=== PATIENT | female | born 1935 | race Caucasian/White ===

== ENCOUNTER 2019-05-04 14:59 | Emergency (ER) | payer MEDICARE, SELFPAY ==
[2019-05-04 15:16] VITALS: BP 156/88; PULSE 90; RESP 20; TEMP 36.4; O2SAT 100; BMI 28.1
--- NOTE | 2019-05-04 15:23 | ED_ITS ---
HPI - Female Genitourinary General Chief complaint: Urogenital-Female Stated complaint: HEAVY BLEEDING SURGICAL AREA PELVIC AREA Time Seen by Provider: 05/04/19 15:06 Source: patient Mode of arrival: Ambulatory Limitations: no limitations History of Present Illness HPI Narrative: The patient is a 83-year-old female postop day number 4 after a cystocele repair/ colpocliesis, presenting with bleeding. She says that she did have some bleeding however it seemed to stop and this morning on she has had heavy bleeding she went through 3 maxi pads is an about an hour. It seems to have slowed some but she does still continue to have some bright red blood. She denies any abdominal pain dizziness or lightheadedness. She is supposed to be on aspirin however she has not yet resumed it up postoperatively. Related Data Home Medications Medication Instructions Recorded Confirmed acetaminophen 500 mg PO Q6H PRN #0 04/30/11 05/04/19 ibuprofen [Advil] 200 mg PO Q6H PRN #0 04/30/11 05/04/19 Restasis 0.05 % OPHTH BID #0 04/17/13 05/04/19 aspirin 81 mg PO DAILY #0 04/17/13 05/04/19 olopatadine [Patanol] 0.1 % OPHTH PRN PRN #5 ml 04/17/13 05/04/19 [ALOE VERA JUICE] 30 ml PO DAILY #0 09/01/16 05/04/19 cholecalciferol (vitamin D3) 2,000 iu PO QAM #0 09/01/16 05/04/19 [Vitamin D3] Respironics Dreamstation CPAP #1 ea 09/21/18 05/04/19 fexofenadine 180 mg tablet 180 mg PO DAILY 09/25/18 05/04/19 omeprazole 20 mg capsule,delayed 20 mg PO DAILY PRN 09/25/18 05/04/19 release valacyclovir 500 mg tablet 500 mg PO DAILY 09/25/18 05/04/19 losartan 25 mg tablet 25 mg PO QPM tab 12/29/18 05/04/19 Buffered Salt 6 drp PO TID 05/04/19 05/04/19 Cbd Oil 3 mg PO DAILY 05/04/19 05/04/19 Ariane Liquid Iron 10 ml PO BID 05/04/19 05/04/19 Lacto.acidophilus-Bif.animalis 1 cap PO QAM 05/04/19 05/04/19 [Probiotic] Oil Of Oregano 2 drp PO DAILY 05/04/19 05/04/19 amlodipine 5 mg PO DAILY 05/04/19 05/04/19 diclofenac sodium [Voltaren] 1 - 2 g TOPICAL BID-TID 05/04/19 05/04/19 estradiol 1 mg PO DAILY 05/04/19 05/04/19 flaxseed oil 1,000 mg PO QAM 05/04/19 05/04/19 raudel oil 1 cap PO DAILY 05/04/19 05/04/19 glucosamine xju-ruljjphybn-fcn 1 tab PO TID 05/04/19 05/04/19 hydrochlorothiazide 12.5 mg PO DAILY 05/04/19 05/04/19 lysine 1 tab PO TID 05/04/19 05/04/19 nitrofurantoin monohyd/m-cryst 100 mg PO MOWEFR 05/04/19 05/04/19 oxycodone 5 mg PO Q4H PRN 05/04/19 05/04/19 vit C,E-Qv-ybhhd-lutein-zeaxan 2 cap PO BID 05/04/19 05/04/19 [PreserVision AREDS-2] vitamin B complex 1 cap PO DAILY 05/04/19 05/04/19 Previous Rx's Medication Instructions Recorded fluticasone propionate 2 spray INTRANASAL QDAY #3 inh 09/01/16 Allergies Allergy/AdvReac Type Severity Reaction Status Date / Time metronidazole [METRONIDAZOLE] Allergy Intermediate NUMBNESS Verified 05/04/19 15:16 IN FINGERS PNEMOMOCOCCAL VACCINE Allergy Mild EDEMA & Uncoded 05/04/19 15:16 ERYTHEMA Review of Systems Review of Systems Narrative: GENERAL: Denies chills, fatigue, malaise, fever, sweats, travel HEENT: Denies sinus pain, ear pain, sore throat, difficulty swallowing, neck pain RESPIRATORY: Denies dyspnea, cough, wheezing, hemoptysis, sputum. CARDIOVASCULAR: Denies chest pain, palpitations, orthopnea, edema GASTROINTESTINAL: Denies nausea, vomiting, abdominal pain, diarrhea, constipation, melena. : See HPI MUSCULOSKELETAL: Denies weakness, joint pain, or bony pain SKIN: No rash, no erythema, no pruritus NEUROLOGIC: Denies weakness, dizziness, headache, numbness, change in speech, confusion PSYCHIATRIC: No concerning psychosocial issues. 12 point review of systems is negative except for those stated above and HPI Patient History Medical History Depression with anxiety (Chronic) Hypertension (Chronic) Insomnia disorder (Chronic) Obstructive sleep apnea of adult (Chronic) Social History Smoking Status: Never smoker Social History Smoking Status: Never smoker alcohol intake frequency: 0-2 drinks per day Alcohol type: wine Substance Use Type: does not use Exam Initial Vital Signs Initial Vital Signs: Vital Signs Temperature 97.6 F 05/04/19 15:16 Pulse Rate 90 05/04/19 15:16 Respiratory Rate 20 05/04/19 15:16 Blood Pressure 156/88 H 05/04/19 15:16 Pulse Oximetry 100 05/04/19 15:16 GENERAL: Well-appearing, well-nourished and in no acute distress. HEENT: Head atraumatic,EOMI, pupils reactive, face symmetric CARDIOVASCULAR: Regular rate and rhythm without murmurs, rubs or gallops. RESPIRATORY: Breath sounds equal bilaterally, no wheezes rales or rhonchi. ABDOMEN: Soft, nontender. Normoactive bowel sounds all 4 quadrants. No guarding or rebound. : No CVA tenderness. bright red blood noted vaginally, nonpulsatile. Noted on pad is well EXTREMITIES: Normal range of motion, no clubbing or edema. Neurovascularly intact NEUROLOGICAL: Alert and oriented x4.Normal gait and speech. SKIN: Warm, dry, no laceration, no petechiae, no rashes or lesions. Course Orders Ordered: Discontinued Medications Sodium Chloride (Normal Saline 0.9%) 1,000 mls @ 150 mls/hr IV CONT THERESA Last Infusion: 05/04/19 19:31 Dose: 0 mls/hr Documented by: Admin: 05/04/19 16:15 Dose: 150 mls/hr Documented by: MANASA Consultations Consultation #1: Urology Dr. Gibbons from [facility] updated patient symptoms test results CT scan is pending. Recommends watching for about an hour to see if bleeding stops. Request call back in about 1 hour. Time: 16:44 Consultation #2: Dr. Gibbons updated on CT and pelvic US. Recommends keeping legs elevated. Hematoma and bleeding should resolve. Time: 19:01 Vital Signs Vital signs: Vital Signs - 8 hr 05/04/19 15:16 05/04/19 18:38 Temperature 97.6 F Pulse Rate 90 62 Respiratory Rate 20 Blood Pressure 156/88 H Blood Pressure [Left Arm] 160/76 H Pulse Oximetry 100 100 MDM - Female Genitourinary Lab Data Attestation: I reviewed the patient's lab results. Result diagrams: 05/04/19 15:47 05/04/19 15:47 Labs: Lab Results 05/04/19 05/04/19 05/04/19 Range/Units 15:47 15:47 15:47 WBC 13.5 H (4.5-11.0) X10^3/uL RBC 3.80 L (4.0-5.2) X10^6/uL Hgb 11.5 L (12.0-16.0) g/dL Hct 34.1 L (36-46) % MCV 89.9 (80-100) fL MCH 30.2 (26-34) PG MCHC 33.6 (30-36) % RDW 14.4 (11.6-14.8) % Plt Count 292 (150-400) X10^3/uL Neut % (Auto) 74.6 (50-75) % Lymph % (Auto) 17.4 L (25-40) % [place] % (Auto) 6.7 (3-14) % Eos % (Auto) 1.0 L (2-4) % Baso % (Auto) 0.3 (0-2) % Neut # (Auto) 06176 H (9498-9243) /uL Lymph # (Auto) 2300 (7549-4120) /uL [place] # (Auto) 900 (0-900) /uL Eos # (Auto) 100 (0-450) /uL Baso # (Auto) 0 (0-100) /uL PT 11.1 (10.1-12.7) SECONDS INR 1.0 (0.9-1.3) APTT 31 (26.4-36.2) SECONDS Sodium 132 L (137-145) mmol/L Potassium 3.8 (3.4-5.1) mmol/L Chloride 96 L (98-107) mmol/L Carbon Dioxide 26 (22-32) mmol/L BUN 13 (7-17) mg/dL Creatinine 0.50 L (0.52-1.04) mg/dL Estimated GFR > 60.0 (>60) mL/min BUN/Creatinine Ratio 26.0 H (6-22) Glucose 99 (80-110) mg/dL Calcium 9.2 (8.4-10.2) mg/dL Total Bilirubin 0.5 (0.2-1.3) mg/dL AST 42 H (14-36) IU/L ALT 28 (9-52) IU/L Alkaline Phosphatase 54 (38-126) U/L Total Protein 7.5 (6.3-8.2) g/dL Albumin 4.4 (3.5-5.0) g/dL Globulin 3.1 (1.7-4.1) g/dL Albumin/Globulin Ratio 1.4 (1.0-2.8) Lipase 31 (23-300) U/L Urine Dip Bedside Urine Glucose Negative Bedside Urine Bilirubin - Negative Bedside Urine Ketone +/- 5 Urine Specific [place] 1.010 Bedside Urine Occult Blood +++ Bedside Urine pH 7.5 Bedside Urine Protein - Negative Bedside Urine Urobilinogen - Negative Bedside Urine Nitrite - Negative Bedside Urine Leukocytes - Negative Esterase Imaging Data CT scan - abdomen: Radiologist's impression: PROCEDURE: CT ABDOMEN PELVIS W CON INDICATIONS: bleeding after cystocele TECHNIQUE: After the administration of intravenous contrast, 5 mm thick sections acquired from the diaphragm to the symphysis. 5 mm coronal and sagittal reformats were acquired. For radiation dose reduction, the following was used: automated exposure control, adjustment of mA and/or kV according to patient size. COMPARISON: [facility], , ABDOMEN WITHOUT CONTRAST, 08/18/2017, 13:20. FINDINGS: Image quality: Excellent. ABDOMEN: Lung bases: Lung bases are clear. Heart size is normal. Solid organs: Liver is normal in size and enhancement. Anterior hepatic cyst is present measuring 16 mm. Similar focus noted posteriorly in the right hepatic lobe measures 7 mm. Steatosis is present. Gallbladder has been removed. Biliary system is non d ilated. Pancreas enhances normally. Spleen is normal in size and enhancement. No adrenal nodules. Kidneys demonstrate normal size and enhancement, without hydronephrosis. Peritoneum and bowel: Bowel loops demonstrate normal wall thickness and caliber. No free fluid or air. Diverticula are present. Nodes and vessels: No retroperitoneal or mesenteric adenopathy by size criteria. Aorta and inferior vena cava are normal in size. Miscellaneous: No ventral hernias. PELVIS: Genitourinary: Bladder wall thickness is normal. Punctate area of air is noted within the bladder. Posterior to the bladder and projecting inferior there is a lobulated area of heterogeneous increased density with Hounsfield units ranging from 45 through 50. There is indentation of the anterior rectal wall. No priors are available for comparison. Miscellaneous: No inguinal hernias or adenopathy. Bones: No suspicious bony lesions. No vertebral body compression fractures. IMPRESSION: 1. Lobulated area of increased density within the lower pelvis as described above. While this could be a lobulated retroverted uterus, it appears larger than expected for patient's age and extends more inferiorly. Given recent history of cystocele surgery and clinical history of vaginal bleeding, hematoma cannot be excluded. Pelvic ultrasound is recommended for further delineation of the uterine boundaries and presence of fluid. 2. Diverticulosis. 3. Nondependent bladder air possibly related to recent surgery. 4. Hepatic cysts. The above was discussed with Dr. Tania Jalloh on 05/04/19 at 4:55 PM. Dictated by: Sherlyn Montgomery M.D. on 05/04/2019 at 16:55 pelic US: Radiologist's impression: PROCEDURE: US PELVIC COMPLETE INDICATIONS: VAGINAL BLEEDING ? HEMATOMA SEEN ON CT TECHNIQUE: Real-time scanning was performed of the pelvic organs, with image documentation. Additional endovaginal scanning was necessary due to incomplete visualization of the adnexal and endometrial structures by transabdominal scanning. COMPARISON: None. FINDINGS: Transabdominal scanning: Limited scanning through the kidneys shows no hydronephrosis. No pathologic free abdominal or pelvic fluid. Endovaginal scanning: Uterus: The uterus is surgically absent. A heterogeneous fluid collection or hypoechoic mass is present in the cervical region. Ovaries: The right ovary is surgically absent. The left ovary is not visualized. The prevoid bladder volume is 494 cm cubed and the postvoid volume is 169 cm cubed. IMPRESSION: 1. Heterogeneous fluid collection versus hypoechoic mass in the cervical region. Direct visualization recommended. Alternatively, gynecologic protocol MRI could be used. 2. Moderate postvoid residual. 3. Nonvisualization of the left ovary. Dictated by: Marii Johnson M.D. on 05/04/2019 at 18:06 Approved by: Marii Johnson M.D. on 05/04/2019 at 18:09 [facility] Narrative Medical decision making narrative: CT ultrasound are concerning for hematoma in the pelvis area. Patient's bleeding has definitely decreased since earlier in the day. She continues to have no pain. Urology updated on patient's scans and decrease in bleeding. Recommend outpatient follow-up keeping legs elevated while at rest. Will follow up in clinic next week. Discharge Plan Departure Patient Disposition: Home Clinical Impression: Postoperative vaginal bleeding following genitourinary procedure Discharge Date/Time: 05/04/19 19:32 Instructions: Cystocele and Rectocele Repair Activity Restrictions/Additional Instructions: *You have been diagnosed with postoperative bleeding *What to do: Urology has been updated they recommend keeping her legs elevated. The large blood clot should reabsorb over the next few weeks and bleeding should decreased. *Continue to take medications as directed *Follow up with your primary care provider in 2-3 days *Return to ER if you should have significant increased vaginal bleeding like you had earlier today, increased abdominal pain dizziness or lightheadedness or any new, worsening or concerning symptoms Prescriptions: No Action ibuprofen [Advil] 200 MG tablet 200 mg PO Q6H PRN (Reason: pain) Qty: 0 RF: 0 acetaminophen 500 mg Tablet 500 mg PO Q6H PRN (Reason: pain) Qty: 0 RF: 0 aspirin 81 MG tablet,delayed release (DR/EC) 81 mg PO DAILY Qty: 0 RF: 0 olopatadine [Patanol] 5 ML drops 0.1 % OPHTH PRN PRN (Reason: as directed) Qty: 5 RF: 0 Restasis 1 EACH dropperette 0.05 % OPHTH BID Qty: 0 RF: 0 cholecalciferol (vitamin D3) [Vitamin D3] 1,000 UNIT tablet,chewable 2,000 iu PO QAM Qty: 0 RF: 0 [ALOE VERA JUICE] 30 ml PO DAILY Qty: 0 RF: 0 fluticasone propionate 16 GM spray,suspension 2 spray Intranasal QDAY Qty: 3 RF: 3 fexofenadine [Linnea Allergy] 180 mg tablet 180 mg PO DAILY RF: 0 omeprazole 20 mg capsule,delayed release(DR/EC) 20 mg PO DAILY PRN (Reason: Acid Reflux) RF: 0 valacyclovir 500 mg tablet 500 mg PO DAILY RF: 0 losartan 25 mg tablet 25 mg PO QPM RF: 0 hydrochlorothiazide 12.5 mg capsule 12.5 mg PO DAILY RF: 0 nitrofurantoin monohyd/m-cryst 100 mg capsule 100 mg PO MOWEFR RF: 0 estradiol 1 MG tablet 1 mg PO DAILY RF: 0 amlodipine 5 mg Tablet 5 mg PO DAILY RF: 0 flaxseed oil 1,000 mg Capsule 1,000 mg PO QAM RF: 0 vitamin B complex Capsule 1 cap PO DAILY RF: 0 oxycodone 5 mg Tablet 5 mg PO Q4H PRN (Reason: pain) RF: 0 Probiotic 5 billion cell Capsule, Sprinkle 1 cap PO QAM RF: 0 PreserVision AREDS-2 [id number] wt-trmp-bu-mg Capsule 2 cap PO BID RF: 0 Buffered Salt 6 drp PO TID RF: 0 Cbd Oil 3 mg PO DAILY RF: 0 Ariane Liquid Iron 10 ml PO BID RF: 0 Oil Of Oregano 2 drp PO DAILY RF: 0 raudel oil capsule 1 cap PO DAILY RF: 0 glucosamine prp-xbvugueuws-rwr 1 tab PO TID RF: 0 lysine 1 tab PO TID RF: 0 diclofenac sodium [Voltaren] 1 % gel 1 - 2 g Topical BID-TID RF: 0 (DME) Respironics Dreamstation CPAP Qty: 1 RF: 0 Referrals: Sierra Washington MD [Non-Staff] - Breezy Souza MD [Primary Care Provider] -
--- NOTE | 2019-05-04 15:32 | DI.CT.S_ITS ---
PROCEDURE: CT ABDOMEN PELVIS W CON INDICATIONS: bleeding after cystocele TECHNIQUE: After the administration of intravenous contrast, 5 mm thick sections acquired from the diaphragm to the symphysis. 5 mm coronal and sagittal reformats were acquired. For radiation dose reduction, the following was used: automated exposure control, adjustment of mA and/or kV according to patient size. COMPARISON: [facility], , ABDOMEN WITHOUT CONTRAST, 08/18/2017, 13:20. FINDINGS: Image quality: Excellent. ABDOMEN: Lung bases: Lung bases are clear. Heart size is normal. Solid organs: Liver is normal in size and enhancement. Anterior hepatic cyst is present measuring 16 mm. Similar focus noted posteriorly in the right hepatic lobe measures 7 mm. Steatosis is present. Gallbladder has been removed. Biliary system is non dilated. Pancreas enhances normally. Spleen is normal in size and enhancement. No adrenal nodules. Kidneys demonstrate normal size and enhancement, without hydronephrosis. Peritoneum and bowel: Bowel loops demonstrate normal wall thickness and caliber. No free fluid or air. Diverticula are present. Nodes and vessels: No retroperitoneal or mesenteric adenopathy by size criteria. Aorta and inferior vena cava are normal in size. Miscellaneous: No ventral hernias. PELVIS: Genitourinary: Bladder wall thickness is normal. Punctate area of air is noted within the bladder. Posterior to the bladder and projecting inferior there is a lobulated area of heterogeneous increased density with Hounsfield units ranging from 45 through 50. There is indentation of the anterior rectal wall. No priors are available for comparison. Miscellaneous: No inguinal hernias or adenopathy. Bones: No suspicious bony lesions. No vertebral body compression fractures. IMPRESSION: 1. Lobulated area of increased density within the lower pelvis as described above. While this could be a lobulated retroverted uterus, it appears larger than expected for patient's age and extends more inferiorly. Given recent history of cystocele surgery and clinical history of vaginal bleeding, hematoma cannot be excluded. Pelvic ultrasound is recommended for further delineation of the uterine boundaries and presence of fluid. 2. Diverticulosis. 3. Nondependent bladder air possibly related to recent surgery. 4. Hepatic cysts. The above was discussed with Dr. Tania Jalloh on 05/04/19 at 4:55 PM. Dictated by: Sherlyn Montgomery M.D. on 05/04/2019 at 16:55 Approved by: Sherlyn Montgomery M.D. on 05/04/2019 at 17:05
[2019-05-04 15:56] LABS: Add Manual Diff / Slide Review NO; Basophils Absolute Auto 0 /uL (0-100); Basophils Percent Auto 0.3 % (0-2); Eosinophils Absolute Auto 100 /uL (0-450); Hematocrit 34.1 % (36-46); Hemoglobin 11.5 g/dL (12.0-16.0); Lymphocytes Absolute Auto 2300 /uL (1100-4500); Lymphocytes Percent Auto 17.4 % (25-40); Mean Corpuscular HGB Conc 33.6 % (30-36); Mean Corpuscular Hemoglobin 30.2 PG (26-34); Mean Corpuscular Volume 89.9 fL (80-100); Monocytes Absolute Auto 900 /uL (0-900); Monocytes Percent Auto 6.7 % (3-14); Neutrophils Absolute Auto 10100 /uL (1500-7000); Neutrophils Percent Auto 74.6 % (50-75); Platelet Count 292 X10^3/uL (150-400); Red Cell Distribution Width 14.4 % (11.6-14.8); White Blood Cell Count 13.5 X10^3/uL (4.5-11.0)
[2019-05-04 16:02] LABS: Prothrombin Time 11.1 SECONDS (10.1-12.7)
[2019-05-04 16:04] LABS: PTT Partial Thromboplastin Tim 31 SECONDS (26.4-36.2)
[2019-05-04 16:06] LABS: Alanine Aminotransferase 28 IU/L (9-52); Albumin 4.4 g/dL (3.5-5.0); Albumin Globulin Ratio 1.4 (1.0-2.8); Alkaline Phosphatase 54 U/L (38-126); Aspartate Aminotransferase 42 IU/L (14-36); Bilirubin Total 0.5 mg/dL (0.2-1.3); Blood Urea Nitrogen 13 mg/dL (7-17); Calcium 9.2 mg/dL (8.4-10.2); Carbon Dioxide 26 mmol/L (22-32); Chloride 96 mmol/L (98-107); Estimated Glomerular Filt Rate > 60.0 mL/min (>60); Globulin 3.1 g/dL (1.7-4.1); Glucose 99 mg/dL (80-110); HEMOLYSIS < 15 (0-50); Lipase 31 U/L (23-300); Potassium 3.8 mmol/L (3.4-5.1); Sodium 132 mmol/L (137-145); Total Protein 7.5 g/dL (6.3-8.2)
[2019-05-04] MEDS: SODIUM CHLORIDE 0.9% 1,000 ML 150 ML IV (16:15)
--- NOTE | 2019-05-04 17:03 | DI.US.S_ITS ---
PROCEDURE: US PELVIC COMPLETE INDICATIONS: VAGINAL BLEEDING ? HEMATOMA SEEN ON CT TECHNIQUE: Real-time scanning was performed of the pelvic organs, with image documentation. Additional endovaginal scanning was necessary due to incomplete visualization of the adnexal and endometrial structures by transabdominal scanning. COMPARISON: None. FINDINGS: Transabdominal scanning: Limited scanning through the kidneys shows no hydronephrosis. No pathologic free abdominal or pelvic fluid. Endovaginal scanning: Uterus: The uterus is surgically absent. A heterogeneous fluid collection or hypoechoic mass is present in the cervical region. Ovaries: The right ovary is surgically absent. The left ovary is not visualized. The prevoid bladder volume is 494 cm cubed and the postvoid volume is 169 cm cubed. IMPRESSION: 1. Heterogeneous fluid collection versus hypoechoic mass in the cervical region. Direct visualization recommended. Alternatively, gynecologic protocol MRI could be used. 2. Moderate postvoid residual. 3. Nonvisualization of the left ovary. Dictated by: Marii Johnson M.D. on 05/04/2019 at 18:06 Approved by: Marii Johnson M.D. on 05/04/2019 at 18:09
--- NOTE | 2019-05-04 17:59 | PC.NURSE ---
Patient had small amount of bright red blood on pad. Bright red blood when she wipes.
[2019-05-04 18:38] VITALS: BP 160/76; PULSE 62; O2SAT 100
--- NOTE | 2019-05-04 18:40 | PC.NURSE ---
Patient passed large clot. Provider aware
[2019-05-04 19:28] VITALS: BP 184/72; PULSE 62; RESP 15; O2SAT 100
== END 2019-05-04 19:32 | disposition home or self-care (01) ==
PROVIDERS: Emergency Provider Emergency Medicine; Family Provider Family Medicine; PCP Family Medicine
DX: N99.820 Postprocedural hemorrhage of a genitourinary system organ or structure following a genitourinary system procedure (principal)
CPT/HCPCS: 36415; 74177; 76830; 76856; 80053; 81003; 83690; 85025; 85610; 85730; 96360; 96361; 99283; 99285; Q9967

== ENCOUNTER 2019-07-26 13:00 | Outpatient (RCR) | payer MEDICARE, SELFPAY ==
--- NOTE | 2018-03-26 19:35 | PT.OIE ---
Current Diagnoses Cystocele, unspecified (03/23/18) Rectocele (03/23/18) Female genital prolapse, unspecified (03/23/18) Frequency of micturition (03/23/18) Nocturia (03/23/18) Feeling of incomplete bladder emptying (03/23/18) Urgency of urination (03/23/18) Provider Visit Care Team Role Provider Type Breezy Souza MD Primary Care Provider Physician Specialty: Family Practice Address: [address] [place] [address], [id number] Email: Natali Roman MD Family Provider Non-Staff Specialty: Medical Address: [address] [place] [address], [id number] Email: Tenisha Narvaez MD Attending Provider Physician Specialty: Urology Address: [address] [place] [address], [id number] Email: Physical Therapy Initial Evaluation PT-OP-A Visit Information Start: 03/26/18 19:14 Freq: Status: Active Protocol: Document 03/23/18 14:30 [facility] (Rec: 03/26/18 19:35 [facility] [email or web address]) Out-Patient Physical Therapy Visit Information Visit Information Visit Type Initial Evaluation Visit Start Time 14:30 Visit Stop Time 15:15 Total Visit Minutes 45 Visit Number 1 Evaluation Information Evaluation Date 03/23/18 PT-OP-B Current Condition Start: 03/26/18 19:14 Freq: Status: Active Protocol: Document 03/23/18 14:30 [facility] (Rec: 03/26/18 19:35 [facility] [email or web address]) Current Condition History of Current Condition Onset Date December 2017 Current Complaints pelvic floor weakness, prolapsed vaginal wall, hernia History of Current Condition 82 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 Maria Eugenia reports she noticed a bulge in her vagina while in the shower 3 months ago Since then she has had increasing symptoms of pelvic heavyness and bladder irritation. She reports having overactive bladder for years. She has a history of bladder lift repair 10 years ago x 2, hysterectomy at age 46, hemorrhoid surgery Treatment Goals Patient/Caregiver Goals Improving pelvic floor strength and decreasing vaginal vault prolapse Prior Functional Status Baseline Function- ADL's Independent Baseline Function- Mobility Independent Current Functional Impairments (Reported) Functional Limitations- ADL's lifting Functional Limitations- Mobility/Gait limited due to heavyness and urgency PT-OP-I Pelvic Floor Start: 03/26/18 19:14 Freq: Status: Active Protocol: Document 03/23/18 14:30 [facility] (Rec: 03/26/18 19:35 [facility] [email or web address]) Pelvic Floor Assessment Urine Pelvic Floor Surgery Yes Urinary Symptoms Urge Sensation Prolapse Hesitancy Falling Out Feeling/Heavy Leakage Size Medium Leakage Cause Urge Leaks Per Day varies Voiding Frequency 5-6 times per day Nocturia 2-3 times Pelvic Clock Pelvic Clock 12-3 Atrophy Pelvic Clock 3-6 Atrophy Pelvic Clock 6-9 Atrophy Pelvic Clock 9-12 Atrophy Contraction Ability Voluntary Contraction Weak Manual Muscle Testing Left 2 Manual Muscle Testing Right 2 Manual Muscle Testing Anterior 1 Manual Muscle Testing Posterior 2 Muscle Endurance (Seconds) 5 Comments Pelvic Floor Comments EMG biofeedback readings today are 2.7 uv average and 6.0 uv maximum contraction with poor endurance of the pelvic floor PT-OP-Q Treatments Start: 03/26/18 19:14 Freq: Status: Active Protocol: Document 03/23/18 14:30 [facility] (Rec: 03/26/18 19:35 [facility] [email or web address]) Therapeutic Exercises Supine Exercises 2 Supine Exercise Name isometric adductor contraction with pelvic floor facilitation Side bilateral Reps/Minutes 2 x 10 reps 1 Supine Exercise Name pelvic floor facilitation Reps/Minutes 10 reps 3 times per day hold 5 seconds rest 10 seconds PT-OP-T Assessment and Plan Start: 03/26/18 19:14 Freq: Status: Active Protocol: Document 03/23/18 14:30 [facility] (Rec: 03/26/18 19:35 [facility] [email or web address]) Physical Therapy Assessment Rehab Potential Rehabilitation Potential Good Evaluation Complexity Number of Personal Factors/Comorbidities 0 Number of Body Systems Impaired 1-2 Clinical Presentation at Evaluation Stable Impairments Impairments Activity Tolerance Functional Activities Functional Mobility Strength Tone Goals Four Impairment urgency of urination Short Term Goal (STG) Maria Eugenia is educated on bladder irritants and bladder retraining to help decrease urinary urgency STG Duration 6 weeks Three Impairment Decreased endurance of the pelvic floor Short Term Goal (STG) Improve endurance of the pelvic floor to 10 second hold time or greater STG Duration 6 weeks Two Impairment complaints of pelvic heavyness and pressure Recruitment And Outreach Assistant Goal (LTG) With improved pelvic floor strength Maria Eugenia reports decresed complaints of pelvic heavyness and pressure, Maria Eugenia is able to resume a walking routine without increased symptoms LTG Duration 8 weeks One Impairment weakness of the pelvic floor Fpc Goal (LTG) Maria Eugenia demonstrates improved contraction and strength of the pelvic floor by one muscle grade or better for improved support of the pelvic organs LTG Duration 8 weeks Assessment Summary Assessment Maria Eugenia presents to physical therapy today with symtpoms of vaginal vault prolapse, rectocele, and pelvic floor weakness. Her chief complaints are pelvic heavyness and discomfort as well as urinary urgency and frequency. She is quite weak and atrophied in her levator ani musculature but she is able to facilitate all parts of the levator ani with verbal cues. She did tolerated EMG biofeedback well today for neuro awareness of her pelvic floor. She lacks good endurance and ability to facilitate her pelvic floor without upper abdominal facilitation. She is a good candidate for PT. Physical Therapy Plan Frequency and Duration Frequency of Treatment 1x/Week Duration of Treatment 8 weeks Plan of Care Start Date 03/23/18 Plan of Care End Date 05/18/18 Therapeutic Interventions Therapeutic Interventions Home Exercise Program Neuromuscular Re-education Patient/Caregiver Education Self-Care/Home Management Therapeutic Exercises Modalities Biofeedback Next Visit Focus/Plan Next Note Type Treatment Note Next Visit Plan pelvic floor facilitation and strengthening
--- NOTE | 2018-03-26 19:35 | PT.OPPOC ---
Current Diagnoses Cystocele, unspecified (03/23/18) Rectocele (03/23/18) Female genital prolapse, unspecified (03/23/18) Frequency of micturition (03/23/18) Nocturia (03/23/18) Feeling of incomplete bladder emptying (03/23/18) Urgency of urination (03/23/18) Provider Visit Care Team Role Provider Type Breezy Souza MD Primary Care Provider Physician Specialty: Family Practice Address: [address] [place] [address], [phone] Email: Natali Roman MD Family Provider Non-Staff Specialty: Medical Address: [address] [place] [address], [id number] Email: Tenisha Narvaez MD Attending Provider Physician Specialty: Urology Address: [address] [place] [address], [id number] Email: Plan Of Care PT-OP-T Assessment and Plan Start: 03/26/18 19:14 Freq: Status: Active Protocol: Document 03/23/18 14:30 [facility] (Rec: 03/26/18 19:35 [facility] [email or web address]) Physical Therapy Assessment Rehab Potential Rehabilitation Potential Good Evaluation Complexity Number of Personal Factors/Comorbidities 0 Number of Body Systems Impaired 1-2 Clinical Presentation at Evaluation Stable Impairments Impairments Activity Tolerance Functional Activities Functional Mobility Strength Tone Goals Four Impairment urgency of urination Short Term Goal (STG) Maria Eugenia is educated on bladder irritants and bladder retraining to help decrease urinary urgency STG Duration 6 weeks Three Impairment Decreased endurance of the pelvic floor Short Term Goal (STG) Improve endurance of the pelvic floor to 10 second hold time or greater STG Duration 6 weeks Two Impairment complaints of pelvic heavyness and pressure Scrap Stripper Hand Goal (LTG) With improved pelvic floor strength Maria Eugenia reports decresed complaints of pelvic heavyness and pressure, Maria Eugenia is able to resume a walking routine without increased symptoms LTG Duration 8 weeks One Impairment weakness of the pelvic floor Fci Goal (LTG) Maria Eugenia demonstrates improved contraction and strength of the pelvic floor by one muscle grade or better for improved support of the pelvic organs LTG Duration 8 weeks Assessment Summary Assessment Maria Eugenia presents to physical therapy today with symtpoms of vaginal vault prolapse, rectocele, and pelvic floor weakness. Her chief complaints are pelvic heavyness and discomfort as well as urinary urgency and frequency. She is quite weak and atrophied in her levator ani musculature but she is able to facilitate all parts of the levator ani with verbal cues. She did tolerated EMG biofeedback well today for neuro awareness of her pelvic floor. She lacks good endurance and ability to facilitate her pelvic floor without upper abdominal facilitation. She is a good candidate for PT. Physical Therapy Plan Frequency and Duration Frequency of Treatment 1x/Week Duration of Treatment 8 weeks Plan of Care Start Date 03/23/18 Plan of Care End Date 05/18/18 Therapeutic Interventions Therapeutic Interventions Home Exercise Program Neuromuscular Re-education Patient/Caregiver Education Self-Care/Home Management Therapeutic Exercises Modalities Biofeedback Next Visit Focus/Plan Next Note Type Treatment Note Next Visit Plan pelvic floor facilitation and strengthening Plan of Care Dates Plan of Care Start Date 03/23/18 Plan of Care End Date 05/18/18 Please Sign and Return: I have reviewed this Plan of Care and certify that the skilled therapy services above are required to meet the patient?s needs. Physician Signature Date Printed Name and Credentials Clinical Instructor Signature Printed Name and Credentials
--- NOTE | 2018-03-30 12:21 | PT.OTN ---
Current Diagnoses Cystocele, unspecified (03/30/18) Rectocele (03/30/18) Female genital prolapse, unspecified (03/30/18) Frequency of micturition (03/30/18) Nocturia (03/30/18) Feeling of incomplete bladder emptying (03/30/18) Urgency of urination (03/30/18) Physical Therapy Treatment Note PT-OP-A Visit Information Start: 03/26/18 19:14 Freq: Status: Active Protocol: Document 03/30/18 12:08 [facility] (Rec: 03/30/18 12:15 [facility] [email or web address]) Out-Patient Physical Therapy Visit Information Visit Information Visit Type Treatment Note Visit Start Time 09:45 Visit Stop Time 10:30 Total Visit Minutes 45 Visit Number 2 Evaluation Information Evaluation Date 03/23/18 PT-OP-B Current Condition Start: 03/26/18 19:14 Freq: Status: Active Protocol: Document 03/23/18 14:30 [facility] (Rec: 03/26/18 19:35 [facility] [email or web address]) Current Condition History of Current Condition Onset Date December 2017 Current Complaints pelvic floor weakness, prolapsed vaginal wall, hernia History of Current Condition 82 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 Maria Eugenia reports she noticed a bulge in her vagina while in the shower 3 months ago Since then she has had increasing symptoms of pelvic heavyness and bladder irritation. She reports having overactive bladder for years. She has a history of bladder lift repair 10 years ago x 2, hysterectomy at age 46, hemorrhoid surgery Treatment Goals Patient/Caregiver Goals Improving pelvic floor strength and decreasing vaginal vault prolapse Prior Functional Status Baseline Function- ADL's Independent Baseline Function- Mobility Independent Current Functional Impairments (Reported) Functional Limitations- ADL's lifting Functional Limitations- Mobility/Gait limited due to heavyness and urgency PT-OP-I Pelvic Floor Start: 03/26/18 19:14 Freq: Status: Active Protocol: Document 03/23/18 14:30 [facility] (Rec: 03/26/18 19:35 [facility] [email or web address]) Pelvic Floor Assessment Urine Pelvic Floor Surgery Yes Urinary Symptoms Urge Sensation Prolapse Hesitancy Falling Out Feeling/Heavy Leakage Size Medium Leakage Cause Urge Leaks Per Day varies Voiding Frequency 5-6 times per day Nocturia 2-3 times Pelvic Clock Pelvic Clock 12-3 Atrophy Pelvic Clock 3-6 Atrophy Pelvic Clock 6-9 Atrophy Pelvic Clock 9-12 Atrophy Contraction Ability Voluntary Contraction Weak Manual Muscle Testing Left 2 Manual Muscle Testing Right 2 Manual Muscle Testing Anterior 1 Manual Muscle Testing Posterior 2 Muscle Endurance (Seconds) 5 Comments Pelvic Floor Comments EMG biofeedback readings today are 2.7 uv average and 6.0 uv maximum contraction with poor endurance of the pelvic floor PT-OP-Q Treatments Start: 03/26/18 19:14 Freq: Status: Active Protocol: Document 03/30/18 12:08 [facility] (Rec: 03/30/18 12:15 [facility] [email or web address]) Therapeutic Exercises Supine Exercises 5 Supine Exercise Name templates for coordination and eccentric control 4 Supine Exercise Name quick contractions of the pelvic floor Reps/Minutes 2 x 10 reps 3 Supine Exercise Name rollouts with theraband Reps/Minutes 3 x 10 reps 2 Supine Exercise Name isometric adductor contraction with pelvic floor facilitation Side bilateral Reps/Minutes 2 x 10 reps 1 Supine Exercise Name pelvic floor facilitation Reps/Minutes 10 reps 3 times per day hold 10 seconds rest 10 seconds Standing Exercises 1 Standing Exercise Name scapula squeezes Reps/Minutes 3 x 10 reps Self-Care/Home Management Treatment Education Patient Education Home Exercise Program Other Education urge deference technique PT-OP-T Assessment and Plan Start: 03/26/18 19:14 Freq: Status: Active Protocol: Document 03/30/18 12:08 [facility] (Rec: 03/30/18 12:15 [facility] [email or web address]) Physical Therapy Assessment Assessment Summary Assessment 2.4 uv average and 3.6 uv max. Began urge deference technique and postural scapula squeezes this visit. Billie would benefit from further postural strengthening as her forward posture most likely contributes to her bladder leakage Physical Therapy Plan Frequency and Duration Frequency of Treatment 1x/Week Duration of Treatment 8 weeks Plan of Care Start Date 03/23/18 Plan of Care End Date 05/18/18 Therapeutic Interventions Therapeutic Interventions Home Exercise Program Neuromuscular Re-education Patient/Caregiver Education Self-Care/Home Management Therapeutic Exercises Modalities Biofeedback Next Visit Focus/Plan Next Note Type Treatment Note Next Visit Plan begin standing rows and lat pull down with pelvic floor activation
--- NOTE | 2018-04-05 12:01 | PT.OTN ---
Current Diagnoses Cystocele, unspecified (04/05/18) Rectocele (04/05/18) Female genital prolapse, unspecified (04/05/18) Frequency of micturition (04/05/18) Nocturia (04/05/18) Feeling of incomplete bladder emptying (04/05/18) Urgency of urination (04/05/18) Physical Therapy Treatment Note PT-OP-A Visit Information Start: 03/26/18 19:14 Freq: Status: Active Protocol: Document 04/05/18 11:57 [facility] (Rec: 04/05/18 12:01 [facility] [email or web address]) Out-Patient Physical Therapy Visit Information Visit Information Visit Type Treatment Note Visit Start Time 10:45 Visit Stop Time 11:30 Total Visit Minutes 45 Visit Number 3 Evaluation Information Evaluation Date 03/23/18 PT-OP-B Current Condition Start: 03/26/18 19:14 Freq: Status: Active Protocol: Document 03/23/18 14:30 [facility] (Rec: 03/26/18 19:35 [facility] [email or web address]) Current Condition History of Current Condition Onset Date December 2017 Current Complaints pelvic floor weakness, prolapsed vaginal wall, hernia History of Current Condition 82 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 Maria Eugenia reports she noticed a bulge in her vagina while in the shower 3 months ago Since then she has had increasing symptoms of pelvic heavyness and bladder irritation. She reports having overactive bladder for years. She has a history of bladder lift repair 10 years ago x 2, hysterectomy at age 46, hemorrhoid surgery Treatment Goals Patient/Caregiver Goals Improving pelvic floor strength and decreasing vaginal vault prolapse Prior Functional Status Baseline Function- ADL's Independent Baseline Function- Mobility Independent Current Functional Impairments (Reported) Functional Limitations- ADL's lifting Functional Limitations- Mobility/Gait limited due to heavyness and urgency PT-OP-C Subjective Start: 03/26/18 19:14 Freq: Status: Active Protocol: Document 04/05/18 11:57 [facility] (Rec: 04/05/18 12:01 [facility] [email or web address]) OP-PT Subjective Patient Comments Patient Comments Maria Eugenia reports the urge deference technique is working well for her. PT-OP-I Pelvic Floor Start: 03/26/18 19:14 Freq: Status: Active Protocol: Document 03/23/18 14:30 [facility] (Rec: 03/26/18 19:35 [facility] [email or web address]) Pelvic Floor Assessment Urine Pelvic Floor Surgery Yes Urinary Symptoms Urge Sensation Prolapse Hesitancy Falling Out Feeling/Heavy Leakage Size Medium Leakage Cause Urge Leaks Per Day varies Voiding Frequency 5-6 times per day Nocturia 2-3 times Pelvic Clock Pelvic Clock 12-3 Atrophy Pelvic Clock 3-6 Atrophy Pelvic Clock 6-9 Atrophy Pelvic Clock 9-12 Atrophy Contraction Ability Voluntary Contraction Weak Manual Muscle Testing Left 2 Manual Muscle Testing Right 2 Manual Muscle Testing Anterior 1 Manual Muscle Testing Posterior 2 Muscle Endurance (Seconds) 5 Comments Pelvic Floor Comments EMG biofeedback readings today are 2.7 uv average and 6.0 uv maximum contraction with poor endurance of the pelvic floor PT-OP-Q Treatments Start: 03/26/18 19:14 Freq: Status: Active Protocol: Document 04/05/18 11:57 [facility] (Rec: 04/05/18 12:01 [facility] [email or web address]) Therapeutic Exercises Supine Exercises 5 Supine Exercise Name templates for coordination and eccentric control 4 Supine Exercise Name quick contractions of the pelvic floor Reps/Minutes 2 x 10 reps 3 Supine Exercise Name rollouts with theraband Reps/Minutes 3 x 10 reps 2 Supine Exercise Name isometric adductor contraction with pelvic floor facilitation Side bilateral Reps/Minutes 2 x 10 reps 1 Supine Exercise Name pelvic floor facilitation Reps/Minutes 10 reps 3 times per day hold 10 seconds rest 10 seconds Standing Exercises 3 Standing Exercise Name standing doorway chest stretch 2 Standing Exercise Name standing rows and shoulder extension Reps/Minutes 2 x 10 each PT-OP-T Assessment and Plan Start: 03/26/18 19:14 Freq: Status: Active Protocol: Document 04/05/18 11:57 [facility] (Rec: 04/05/18 12:01 [facility] [email or web address]) Physical Therapy Assessment Assessment Summary Assessment improved average on EMG biofeedback today to 3.4 uv average and max of 7.2. Added in standing postural exercises with theraband and Maria Eugenia tolerated these well. Physical Therapy Plan Frequency and Duration Frequency of Treatment 1x/Week Duration of Treatment 8 weeks Plan of Care Start Date 03/23/18 Plan of Care End Date 05/18/18 Therapeutic Interventions Therapeutic Interventions Home Exercise Program Neuromuscular Re-education Patient/Caregiver Education Self-Care/Home Management Therapeutic Exercises Modalities Biofeedback Next Visit Focus/Plan Next Note Type Treatment Note Next Visit Plan begin sit-stand and clam shells
--- NOTE | 2018-04-27 11:57 | PT.OTN ---
Current Diagnoses Cystocele, unspecified (04/26/18) Rectocele (04/26/18) Female genital prolapse, unspecified (04/26/18) Frequency of micturition (04/26/18) Nocturia (04/26/18) Feeling of incomplete bladder emptying (04/26/18) Urgency of urination (04/26/18) Physical Therapy Treatment Note PT-OP-A Visit Information Start: 03/26/18 19:14 Freq: Status: Active Protocol: Document 04/26/18 11:51 [facility] (Rec: 04/27/18 11:57 [facility] [email or web address]) Out-Patient Physical Therapy Visit Information Visit Information Visit Type Treatment Note Visit Start Time 11:30 Visit Stop Time 12:15 Total Visit Minutes 45 Visit Number 4 Evaluation Information Evaluation Date 03/23/18 PT-OP-B Current Condition Start: 03/26/18 19:14 Freq: Status: Active Protocol: Document 03/23/18 14:30 [facility] (Rec: 03/26/18 19:35 [facility] [email or web address]) Current Condition History of Current Condition Onset Date December 2017 Current Complaints pelvic floor weakness, prolapsed vaginal wall, hernia History of Current Condition 82 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 Maria Eugenia reports she noticed a bulge in her vagina while in the shower 3 months ago Since then she has had increasing symptoms of pelvic heavyness and bladder irritation. She reports having overactive bladder for years. She has a history of bladder lift repair 10 years ago x 2, hysterectomy at age 46, hemorrhoid surgery Treatment Goals Patient/Caregiver Goals Improving pelvic floor strength and decreasing vaginal vault prolapse Prior Functional Status Baseline Function- ADL's Independent Baseline Function- Mobility Independent Current Functional Impairments (Reported) Functional Limitations- ADL's lifting Functional Limitations- Mobility/Gait limited due to heavyness and urgency PT-OP-C Subjective Start: 03/26/18 19:14 Freq: Status: Active Protocol: Document 04/26/18 11:51 [facility] (Rec: 04/27/18 11:57 [facility] [email or web address]) OP-PT Subjective Patient Comments Patient Comments Urgency is a little bit better . First thing in the am she can still feel pressure from the bladder prolapse PT-OP-I Pelvic Floor Start: 03/26/18 19:14 Freq: Status: Active Protocol: Document 03/23/18 14:30 [facility] (Rec: 03/26/18 19:35 [facility] [email or web address]) Pelvic Floor Assessment Urine Pelvic Floor Surgery Yes Urinary Symptoms Urge Sensation Prolapse Hesitancy Falling Out Feeling/Heavy Leakage Size Medium Leakage Cause Urge Leaks Per Day varies Voiding Frequency 5-6 times per day Nocturia 2-3 times Pelvic Clock Pelvic Clock 12-3 Atrophy Pelvic Clock 3-6 Atrophy Pelvic Clock 6-9 Atrophy Pelvic Clock 9-12 Atrophy Contraction Ability Voluntary Contraction Weak Manual Muscle Testing Left 2 Manual Muscle Testing Right 2 Manual Muscle Testing Anterior 1 Manual Muscle Testing Posterior 2 Muscle Endurance (Seconds) 5 Comments Pelvic Floor Comments EMG biofeedback readings today are 2.7 uv average and 6.0 uv maximum contraction with poor endurance of the pelvic floor PT-OP-Q Treatments Start: 03/26/18 19:14 Freq: Status: Active Protocol: Document 04/26/18 11:51 [facility] (Rec: 04/27/18 11:57 [facility] [email or web address]) Therapeutic Exercises Supine Exercises 6 Supine Exercise Name hamstring stretch and cobra stretch 5 Supine Exercise Name templates for coordination and eccentric control 4 Supine Exercise Name quick contractions of the pelvic floor Reps/Minutes 2 x 10 reps 3 Supine Exercise Name rollouts with theraband Reps/Minutes 3 x 10 reps 2 Supine Exercise Name isometric adductor contraction with pelvic floor facilitation Side bilateral Reps/Minutes 2 x 10 reps 1 Supine Exercise Name pelvic floor facilitation Reps/Minutes 10 reps 3 times per day hold 10 seconds rest 10 seconds Sidelying Exercises 1 Sidelying Exercise Name clam shells PT-OP-T Assessment and Plan Start: 03/26/18 19:14 Freq: Status: Active Protocol: Document 04/26/18 11:51 [facility] (Rec: 04/27/18 11:57 [facility] [email or web address]) Physical Therapy Assessment Assessment Summary Assessment worked on hip opening as well for Maria Eugenia today as she tends to get low back pain, added in cobra stretch and hamstring stretch Physical Therapy Plan Frequency and Duration Frequency of Treatment 1x/Week Duration of Treatment 8 weeks Plan of Care Start Date 03/23/18 Plan of Care End Date 05/18/18 Therapeutic Interventions Therapeutic Interventions Home Exercise Program Neuromuscular Re-education Patient/Caregiver Education Self-Care/Home Management Therapeutic Exercises Modalities Biofeedback Next Visit Focus/Plan Next Note Type Treatment Note Next Visit Plan begin sit-stand with pelvic floor facilitation
--- NOTE | 2018-05-18 15:58 | PT.OTN ---
Current Diagnoses Cystocele, unspecified (05/17/18) Rectocele (05/17/18) Female genital prolapse, unspecified (05/17/18) Frequency of micturition (05/17/18) Nocturia (05/17/18) Feeling of incomplete bladder emptying (05/17/18) Urgency of urination (05/17/18) Physical Therapy Treatment Note PT-OP-A Visit Information Start: 03/26/18 19:14 Freq: Status: Active Protocol: Document 05/17/18 15:53 [facility] (Rec: 05/18/18 15:58 [facility] [email or web address]) Out-Patient Physical Therapy Visit Information Visit Information Visit Type Treatment Note Visit Start Time 11:30 Visit Stop Time 12:15 Total Visit Minutes 45 Visit Number 5 PT-OP-B Current Condition Start: 03/26/18 19:14 Freq: Status: Active Protocol: Document 03/23/18 14:30 [facility] (Rec: 03/26/18 19:35 [facility] [email or web address]) Current Condition History of Current Condition Onset Date December 2017 Current Complaints pelvic floor weakness, prolapsed vaginal wall, hernia History of Current Condition 82 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 Maria Eugenia reports she noticed a bulge in her vagina while in the shower 3 months ago Since then she has had increasing symptoms of pelvic heavyness and bladder irritation. She reports having overactive bladder for years. She has a history of bladder lift repair 10 years ago x 2, hysterectomy at age 46, hemorrhoid surgery Treatment Goals Patient/Caregiver Goals Improving pelvic floor strength and decreasing vaginal vault prolapse Prior Functional Status Baseline Function- ADL's Independent Baseline Function- Mobility Independent Current Functional Impairments (Reported) Functional Limitations- ADL's lifting Functional Limitations- Mobility/Gait limited due to heavyness and urgency PT-OP-C Subjective Start: 03/26/18 19:14 Freq: Status: Active Protocol: Document 05/17/18 15:53 [facility] (Rec: 05/18/18 15:58 [facility] [email or web address]) OP-PT Subjective Patient Comments Patient Comments Sammy reports she has been sick and and has also been very busy with caodaism activities so she hasn't done as many of her exericses. She can tell that the postural exercises are helping her though PT-OP-I Pelvic Floor Start: 03/26/18 19:14 Freq: Status: Active Protocol: Document 03/23/18 14:30 [facility] (Rec: 03/26/18 19:35 [facility] [email or web address]) Pelvic Floor Assessment Urine Pelvic Floor Surgery Yes Urinary Symptoms Urge Sensation Prolapse Hesitancy Falling Out Feeling/Heavy Leakage Size Medium Leakage Cause Urge Leaks Per Day varies Voiding Frequency 5-6 times per day Nocturia 2-3 times Pelvic Clock Pelvic Clock 12-3 Atrophy Pelvic Clock 3-6 Atrophy Pelvic Clock 6-9 Atrophy Pelvic Clock 9-12 Atrophy Contraction Ability Voluntary Contraction Weak Manual Muscle Testing Left 2 Manual Muscle Testing Right 2 Manual Muscle Testing Anterior 1 Manual Muscle Testing Posterior 2 Muscle Endurance (Seconds) 5 Comments Pelvic Floor Comments EMG biofeedback readings today are 2.7 uv average and 6.0 uv maximum contraction with poor endurance of the pelvic floor PT-OP-Q Treatments Start: 03/26/18 19:14 Freq: Status: Active Protocol: Document 05/17/18 15:53 [facility] (Rec: 05/18/18 15:58 [facility] [email or web address]) Therapeutic Exercises Supine Exercises 6 Supine Exercise Name hamstring stretch and cobra stretch 5 Supine Exercise Name templates for coordination and eccentric control 4 Supine Exercise Name quick contractions of the pelvic floor Reps/Minutes 2 x 10 reps 3 Supine Exercise Name rollouts with theraband Reps/Minutes 3 x 10 reps 2 Supine Exercise Name isometric adductor contraction with pelvic floor facilitation Side bilateral Reps/Minutes 2 x 10 reps 1 Supine Exercise Name pelvic floor facilitation Reps/Minutes 10 reps 3 times per day hold 10 seconds rest 10 seconds Sidelying Exercises 1 Sidelying Exercise Name clam shells Standing Exercises 3 Standing Exercise Name standing doorway chest stretch 2 Standing Exercise Name standing rows and shoulder extension Reps/Minutes 2 x 10 each 1 Standing Exercise Name scapula squeezes Reps/Minutes 3 x 10 reps PT-OP-T Assessment and Plan Start: 03/26/18 19:14 Freq: Status: Active Protocol: Document 05/17/18 15:53 [facility] (Rec: 05/18/18 15:58 [facility] [email or web address]) Physical Therapy Assessment Assessment Summary Assessment The postural exercises have been helping Sammy with her low back pain. She has been feeling better overall in her back. Physical Therapy Plan Frequency and Duration Frequency of Treatment 1x/Week Duration of Treatment 8 weeks Plan of Care Start Date 03/23/18 Plan of Care End Date 05/18/18 Therapeutic Interventions Therapeutic Interventions Home Exercise Program Neuromuscular Re-education Patient/Caregiver Education Self-Care/Home Management Therapeutic Exercises Modalities Biofeedback Next Visit Focus/Plan Next Note Type Progress Note Next Visit Plan continue progressing pelvic floor exercises as Maria Eugenia can tolerate. Recheck strength of the pelvic floor next visit.
--- NOTE | 2018-05-30 10:46 | PT.OPPOC ---
Current Diagnoses Cystocele, unspecified (05/25/18) Rectocele (05/25/18) Female genital prolapse, unspecified (05/25/18) Frequency of micturition (05/25/18) Nocturia (05/25/18) Feeling of incomplete bladder emptying (05/25/18) Urgency of urination (05/25/18) Provider Visit Care Team Role Provider Type Breezy Souza MD Primary Care Provider Physician Specialty: Family Practice Address: [address] [place] [address], [id number] Email: Natali Roman MD Family Provider Non-Staff Specialty: Medical Address: [address] [place] [address], [id number] Email: Tenisha Narvaez MD Attending Provider Physician Specialty: Urology Address: [address] [place] [address], [address] Email: Plan Of Care PT-OP-T Assessment and Plan Start: 03/26/18 19:14 Freq: Status: Active Protocol: Document 05/25/18 14:30 [facility] (Rec: 05/30/18 10:46 [facility] [email or web address]) Physical Therapy Assessment Progress Towards Goals Progress Towards Goals Progressing Toward Goals Assessment Summary Assessment still feeling the pelvic organ prolapse but decreased symptoms of urgency and frequency Physical Therapy Plan Frequency and Duration Frequency of Treatment 1x/Week Duration of Treatment 8 weeks Plan of Care Start Date 05/18/18 Plan of Care End Date 07/13/18 Therapeutic Interventions Therapeutic Interventions Home Exercise Program Neuromuscular Re-education Patient/Caregiver Education Self-Care/Home Management Therapeutic Exercises Modalities Biofeedback Next Visit Focus/Plan Next Note Type Treatment Note Next Visit Plan continue progressing pelvic floor stability and postural progressing to decrease downward pressure on the pelvic organs Plan of Care Dates Plan of Care Start Date 05/18/18 Plan of Care End Date 07/13/18 Please Sign and Return: I have reviewed this Plan of Care and certify that the skilled therapy services above are required to meet the patient?s needs. Physician Signature Date Printed Name and Credentials Clinical Instructor Signature Printed Name and Credentials
--- NOTE | 2018-05-30 10:47 | PT.OTN ---
Current Diagnoses Cystocele, unspecified (05/25/18) Rectocele (05/25/18) Female genital prolapse, unspecified (05/25/18) Frequency of micturition (05/25/18) Nocturia (05/25/18) Feeling of incomplete bladder emptying (05/25/18) Urgency of urination (05/25/18) Physical Therapy Treatment Note PT-OP-A Visit Information Start: 03/26/18 19:14 Freq: Status: Active Protocol: Document 05/25/18 14:30 [facility] (Rec: 05/30/18 10:46 [facility] [email or web address]) Out-Patient Physical Therapy Visit Information Visit Information Visit Type Progress Note Visit Start Time 14:30 Visit Stop Time 15:15 Total Visit Minutes 45 Visit Number 6 PT-OP-B Current Condition Start: 03/26/18 19:14 Freq: Status: Active Protocol: Document 03/23/18 14:30 [facility] (Rec: 03/26/18 19:35 [facility] [email or web address]) Current Condition History of Current Condition Onset Date December 2017 Current Complaints pelvic floor weakness, prolapsed vaginal wall, hernia History of Current Condition 82 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 Maria Eugenia reports she noticed a bulge in her vagina while in the shower 3 months ago Since then she has had increasing symptoms of pelvic heavyness and bladder irritation. She reports having overactive bladder for years. She has a history of bladder lift repair 10 years ago x 2, hysterectomy at age 46, hemorrhoid surgery Treatment Goals Patient/Caregiver Goals Improving pelvic floor strength and decreasing vaginal vault prolapse Prior Functional Status Baseline Function- ADL's Independent Baseline Function- Mobility Independent Current Functional Impairments (Reported) Functional Limitations- ADL's lifting Functional Limitations- Mobility/Gait limited due to heavyness and urgency PT-OP-C Subjective Start: 03/26/18 19:14 Freq: Status: Active Protocol: Document 05/25/18 14:30 [facility] (Rec: 05/30/18 10:46 [facility] [email or web address]) OP-PT Subjective Patient Comments Patient Comments Sammy reports it has been a better week and she has been practicing her postural exercises PT-OP-I Pelvic Floor Start: 03/26/18 19:14 Freq: Status: Active Protocol: Document 03/23/18 14:30 [facility] (Rec: 03/26/18 19:35 [facility] [email or web address]) Pelvic Floor Assessment Urine Pelvic Floor Surgery Yes Urinary Symptoms Urge Sensation Prolapse Hesitancy Falling Out Feeling/Heavy Leakage Size Medium Leakage Cause Urge Leaks Per Day varies Voiding Frequency 5-6 times per day Nocturia 2-3 times Pelvic Clock Pelvic Clock 12-3 Atrophy Pelvic Clock 3-6 Atrophy Pelvic Clock 6-9 Atrophy Pelvic Clock 9-12 Atrophy Contraction Ability Voluntary Contraction Weak Manual Muscle Testing Left 2 Manual Muscle Testing Right 2 Manual Muscle Testing Anterior 1 Manual Muscle Testing Posterior 2 Muscle Endurance (Seconds) 5 Comments Pelvic Floor Comments EMG biofeedback readings today are 2.7 uv average and 6.0 uv maximum contraction with poor endurance of the pelvic floor PT-OP-Q Treatments Start: 03/26/18 19:14 Freq: Status: Active Protocol: Document 05/25/18 14:30 [facility] (Rec: 05/30/18 10:46 [facility] [email or web address]) Therapeutic Exercises Supine Exercises 6 Supine Exercise Name hamstring stretch and cobra stretch 5 Supine Exercise Name templates for coordination and eccentric control 4 Supine Exercise Name quick contractions of the pelvic floor Reps/Minutes 2 x 10 reps 3 Supine Exercise Name rollouts with theraband Reps/Minutes 3 x 10 reps 2 Supine Exercise Name isometric adductor contraction with pelvic floor facilitation Side bilateral Reps/Minutes 2 x 10 reps 1 Supine Exercise Name pelvic floor facilitation Reps/Minutes 10 reps 3 times per day hold 10 seconds rest 10 seconds Sidelying Exercises 1 Sidelying Exercise Name clam shells Standing Exercises 3 Standing Exercise Name standing doorway chest stretch 1 Standing Exercise Name scapula squeezes Reps/Minutes 3 x 10 reps PT-OP-T Assessment and Plan Start: 03/26/18 19:14 Freq: Status: Active Protocol: Document 05/25/18 14:30 [facility] (Rec: 05/30/18 10:46 [facility] [email or web address]) Physical Therapy Assessment Progress Towards Goals Progress Towards Goals Progressing Toward Goals Assessment Summary Assessment still feeling the pelvic organ prolapse but decreased symptoms of urgency and frequency Physical Therapy Plan Frequency and Duration Frequency of Treatment 1x/Week Duration of Treatment 8 weeks Plan of Care Start Date 05/18/18 Plan of Care End Date 07/13/18 Therapeutic Interventions Therapeutic Interventions Home Exercise Program Neuromuscular Re-education Patient/Caregiver Education Self-Care/Home Management Therapeutic Exercises Modalities Biofeedback Next Visit Focus/Plan Next Note Type Treatment Note Next Visit Plan continue progressing pelvic floor stability and postural progressinging to decrease downward pressure on the pelvic organs
--- NOTE | 2018-06-01 16:29 | PT.OTN ---
Current Diagnoses Cystocele, unspecified (06/01/18) Rectocele (06/01/18) Female genital prolapse, unspecified (06/01/18) Frequency of micturition (06/01/18) Nocturia (06/01/18) Feeling of incomplete bladder emptying (06/01/18) Urgency of urination (06/01/18) Physical Therapy Treatment Note PT-OP-A Visit Information Start: 03/26/18 19:14 Freq: Status: Active Protocol: Document 06/01/18 16:26 [facility] (Rec: 06/01/18 16:29 [facility] [email or web address]) Out-Patient Physical Therapy Visit Information Visit Information Visit Type Treatment Note Visit Start Time 14:30 Visit Stop Time 15:15 Total Visit Minutes 45 Visit Number 7 Evaluation Information Evaluation Date 03/23/18 PT-OP-B Current Condition Start: 03/26/18 19:14 Freq: Status: Active Protocol: Document 03/23/18 14:30 [facility] (Rec: 03/26/18 19:35 [facility] [email or web address]) Current Condition History of Current Condition Onset Date December 2017 Current Complaints pelvic floor weakness, prolapsed vaginal wall, hernia History of Current Condition 82 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 Maria Eugenia reports she noticed a bulge in her vagina while in the shower 3 months ago Since then she has had increasing symptoms of pelvic heavyness and bladder irritation. She reports having overactive bladder for years. She has a history of bladder lift repair 10 years ago x 2, hysterectomy at age 46, hemorrhoid surgery Treatment Goals Patient/Caregiver Goals Improving pelvic floor strength and decreasing vaginal vault prolapse Prior Functional Status Baseline Function- ADL's Independent Baseline Function- Mobility Independent Current Functional Impairments (Reported) Functional Limitations- ADL's lifting Functional Limitations- Mobility/Gait limited due to heavyness and urgency PT-OP-C Subjective Start: 03/26/18 19:14 Freq: Status: Active Protocol: Document 06/01/18 16:26 [facility] (Rec: 06/01/18 16:29 [facility] [email or web address]) OP-PT Subjective Patient Comments Patient Comments pt states she has been working on her posture at home quite a bit and feels like it is getting better PT-OP-I Pelvic Floor Start: 09/09/18 19:14 Freq: Status: Active Protocol: Document 03/23/18 14:30 [facility] (Rec: 03/26/18 19:35 [facility] [email or web address]) Pelvic Floor Assessment Urine Pelvic Floor Surgery Yes Urinary Symptoms Urge Sensation Prolapse Hesitancy Falling Out Feeling/Heavy Leakage Size Medium Leakage Cause Urge Leaks Per Day varies Voiding Frequency 5-6 times per day Nocturia 2-3 times Pelvic Clock Pelvic Clock 12-3 Atrophy Pelvic Clock 3-6 Atrophy Pelvic Clock 6-9 Atrophy Pelvic Clock 9-12 Atrophy Contraction Ability Voluntary Contraction Weak Manual Muscle Testing Left 2 Manual Muscle Testing Right 2 Manual Muscle Testing Anterior 1 Manual Muscle Testing Posterior 2 Muscle Endurance (Seconds) 5 Comments Pelvic Floor Comments EMG biofeedback readings today are 2.7 uv average and 6.0 uv maximum contraction with poor endurance of the pelvic floor PT-OP-Q Treatments Start: 03/26/18 19:14 Freq: Status: Active Protocol: Document 06/01/18 16:26 [facility] (Rec: 06/01/18 16:29 [facility] [email or web address]) Therapeutic Exercises Supine Exercises 6 Supine Exercise Name hamstring stretch and cobra stretch 5 Supine Exercise Name templates for coordination and eccentric control 4 Supine Exercise Name quick contractions of the pelvic floor Reps/Minutes 2 x 10 reps 3 Supine Exercise Name rollouts with theraband Reps/Minutes 3 x 10 reps 2 Supine Exercise Name isometric adductor contraction with pelvic floor facilitation Side bilateral Reps/Minutes 2 x 10 reps 1 Supine Exercise Name pelvic floor facilitation Reps/Minutes 10 reps 3 times per day hold 10 seconds rest 10 seconds Sidelying Exercises 1 Sidelying Exercise Name clam shells Standing Exercises 3 Standing Exercise Name standing doorway chest stretch 2 Standing Exercise Name standing rows and shoulder extension Reps/Minutes 2 x 10 each 1 Standing Exercise Name scapula squeezes Reps/Minutes 3 x 10 reps PT-OP-T Assessment and Plan Start: 03/26/18 19:14 Freq: Status: Active Protocol: Document 06/01/18 16:26 [facility] (Rec: 06/01/18 16:29 AM[facility] [email or web address]) Physical Therapy Assessment Assessment Summary Assessment Some decrease in symptoms of pelvic organ prolapse. Decreased c/o LBP. Physical Therapy Plan Next Visit Focus/Plan Next Note Type Treatment Note Next Visit Plan work on sit-stand with pelvic floor activation
--- NOTE | 2018-10-31 13:05 | PT.OTRE ---
Current Diagnoses Cystocele, unspecified (10/26/18) Rectocele (10/26/18) Female genital prolapse, unspecified (10/26/18) Frequency of micturition (10/26/18) Nocturia (10/26/18) Feeling of incomplete bladder emptying (10/26/18) Urgency of urination (10/26/18) Past Medical History (Last Updated 06/11/18 @ 17:23 by POORNIMA Mansfield) Insomnia disorder (Chronic) Obstructive sleep apnea of adult (Chronic) Depression with anxiety (Chronic) Hypertension (Chronic) Provider Visit Care Team Role Provider Type Tenisha Narvaez MD Referring Provider Non-Staff Specialty: Urology Address: [address] [place] [address], [phone] Email: Breezy Souza MD Primary Care Provider Physician Specialty: Family Practice Address: [address] [place] [address], [address] Email: Natali Roman MD Family Provider Non-Staff Specialty: Medical Address: [address] [place] [address], [address] Email: Sierra Washington MD Attending Provider Non-Staff Specialty: Urology Address: [address] [place] [address], [address] Email: Physical Therapy Re-Evaluation PT-OP-A Visit Information Start: 03/26/18 19:14 Freq: Status: Active Protocol: Document 10/26/18 20:18 [facility] (Rec: 10/31/18 13:01 [facility] [email or web address]) Out-Patient Physical Therapy Visit Information Visit Information Visit Type Re-Evaluation Visit Start Time 11:30 Visit Stop Time 12:05 Total Visit Minutes 35 Visit Number 8 Evaluation Information Evaluation Date 03/23/18 PT-OP-B Current Condition Start: 03/26/18 19:14 Freq: Status: Active Protocol: Document 10/26/18 20:18 [facility] (Rec: 10/31/18 13:01 [facility] [email or web address]) Current Condition History of Current Condition History of Current Condition 82 year old female with who returns to PT today after spending a few months working on trying to fit a pessary to 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 She has seen Dr. Ochoa and was fit with a pessary that worked for her and she returns to PT today for further strengthening now that her pelvic pressure is decreased with the pessary. She also has hx of rectocele, urgency of urination, nocturia, feeling of incomplete bladder emptying, and urinary frequency. Maria Eugenia reports she noticed a bulge in her vagina while in the shower 3 months ago Since then she has had increasing symptoms of pelvic heavyness and bladder irritation. She reports having overactive bladder for years. She has a history of bladder lift repair 10 years ago x 2, hysterectomy at age 46, hemorrhoid surgery PT-OP-C Subjective Start: 03/26/18 19:14 Freq: Status: Active Protocol: Document 06/01/18 16:26 [facility] (Rec: 06/01/18 16:29 [facility] [email or web address]) OP-PT Subjective Patient Comments Patient Comments pt states she has been working on her posture at home quite a bit and feels like it is getting better PT-OP-I Pelvic Floor Start: 03/26/18 19:14 Freq: Status: Active Protocol: Document 10/26/18 20:18 [facility] (Rec: 10/31/18 13:01 [facility] [email or web address]) Pelvic Floor Assessment Urine Pelvic Floor Surgery Yes Urinary Symptoms Urge Sensation Prolapse Hesitancy Falling Out Feeling/Heavy Leaks Per Day varies Voiding Frequency 5-6 times per day Nocturia 1 xm now Pads Used In 24 Hours 1 depends pad per day now Urine Pad Type Depends SEMG (uV) Baseline 2.0 10 Second Contraction 5.0 Relaxation Good Holding Fair Stability of Hold Fair SEMG Stability of Rest Good PT-OP-Q Treatments Start: 03/26/18 19:14 Freq: Status: Active Protocol: Document 10/26/18 13:04 [facility] (Rec: 10/31/18 13:04 [facility] [email or web address]) Therapeutic Exercises Supine Exercises 4 Supine Exercise Name quick contractions of the pelvic floor Reps/Minutes 2 x 10 reps 3 Supine Exercise Name rollouts with theraband Reps/Minutes 3 x 10 reps 2 Supine Exercise Name isometric adductor contraction with pelvic floor facilitation Side bilateral Reps/Minutes 2 x 10 reps 1 Supine Exercise Name pelvic floor facilitation Reps/Minutes 10 reps 3 times per day hold 10 seconds rest 10 seconds Sidelying Exercises 1 Sidelying Exercise Name alfred andersen PT-OP-T Assessment and Plan Start: 03/26/18 19:14 Freq: Status: Active Protocol: Document 10/26/18 20:18 [facility] (Rec: 10/31/18 13:01 [facility] [email or web address]) Physical Therapy Assessment Goals Four Impairment urgency of urination Short Term Goal (STG) Sammy is educated on bladder irritants and bladder retraining to help decrease urinary urgency STG Duration GOAL MET Residential Goal (LTG) Sammy is able to void every 2-3 hours during the day . LTG Duration 8 weeks Three Impairment Decreased endurance of the pelvic floor Short Term Goal (STG) Improve endurance of the pelvic floor to 10 second hold time or greater STG Duration 6 weeks Two Impairment complaints of pelvic heavyness and pressure Short Term Goal (STG) GOAL MET with use of pessary Web Applications Programmer Goal (LTG) With improved pelvic floor strength Sammy reports decreased complaints of pelvic heavyness and pressure, Sammy is able to resume a walking routine without increased symptoms One Impairment weakness of the pelvic floor Residential Goal (LTG) Sammy demonstrates improved contraction and strength of the pelvic floor by one muscle grade or better for improved support of the pelvic organs Assessment Summary Assessment Sammy returns to PT today after a long break of being sick and then trying many different pessaries before she found one that fit. Dr. Ochoa helped her find a pessary and she reports she has had it in for one month now without any issues from it . She is happy to have found one that fits and she is happy that her urgency doesn't seem to be as much. She is sleeping better at night now. She feels her strength has decreased due to being sick and she would like further strengthening of the pelvic floor. Her leakage is down from what it was initially and she is down to wearing 1 depends for both the day and night. With examination she was a bit guarded in her pelvic floor initially but then this did improve with verbal cues. She has limited endurance and strength is decreased. We will work with her now on a strengthening program which I think she will tolerate much better having the pressure off with the pessary. Physical Therapy Plan Frequency and Duration Frequency of Treatment 1x/Week Duration of Treatment 8 weeks Plan of Care Start Date 10/26/18 Plan of Care End Date 12/21/18 Therapeutic Interventions Therapeutic Interventions Home Exercise Program Neuromuscular Re-education Patient/Caregiver Education Self-Care/Home Management Therapeutic Exercises Modalities Biofeedback Next Visit Focus/Plan Next Note Type Treatment Note Next Visit Plan EMG biofeedback for pelvic floor strengthening adding in hip strengthening to suppliment pelvic floor strengthening as well.
--- NOTE | 2018-11-02 13:54 | PT.OTN ---
Current Diagnoses Cystocele, unspecified (11/02/18) Rectocele (11/02/18) Female genital prolapse, unspecified (11/02/18) Frequency of micturition (11/02/18) Nocturia (11/02/18) Feeling of incomplete bladder emptying (11/02/18) Urgency of urination (11/02/18) Physical Therapy Treatment Note PT-OP-A Visit Information Start: 03/26/18 19:14 Freq: Status: Active Protocol: Document 11/02/18 13:14 [facility] (Rec: 11/02/18 13:26 COUNTS INCLUDE 234 BEDS AT THE [facility] [id number]) Out-Patient Physical Therapy Visit Information Visit Information Visit Type Treatment Note Visit Start Time 13:00 Visit Stop Time 13:45 Total Visit Minutes 40 Visit Number 9 PT-OP-B Current Condition Start: 03/26/18 19:14 Freq: Status: Active Protocol: Document 10/26/18 20:18 [facility] (Rec: 10/31/18 13:01 [facility] [email or web address]) Current Condition History of Current Condition History of Current Condition 82 year old female with who returns to PT today after spending a few months working on trying to fit a pessary to 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 She has seen Dr. Ochoa and was fit with a pessary that worked for her and she returns to PT today for further strengthening now that her pelvic pressure is decreased with the pessary. She also has hx of rectocele, urgency of urination, nocturia, feeling of incomplete bladder emptying, and urinary frequency. Maria Eugenia reports she noticed a bulge in her vagina while in the shower 3 months ago Since then she has had increasing symptoms of pelvic heavyness and bladder irritation. She reports having overactive bladder for years. She has a history of bladder lift repair 10 years ago x 2, hysterectomy at age 46, hemorrhoid surgery PT-OP-C Subjective Start: 03/26/18 19:14 Freq: Status: Active Protocol: Document 11/02/18 13:14 [facility] (Rec: 11/02/18 13:26 COUNTS INCLUDE 234 BEDS AT THE [facility] [id number]) OP-PT Subjective Patient Comments Patient Comments pt reports she is feeling tired today PT-OP-I Pelvic Floor Start: 03/26/18 19:14 Freq: Status: Active Protocol: Document 10/26/18 20:18 [facility] (Rec: 10/31/18 13:01 [facility] [email or web address]) Pelvic Floor Assessment Urine Pelvic Floor Surgery Yes Urinary Symptoms Urge Sensation Prolapse Hesitancy Falling Out Feeling/Heavy Leaks Per Day varies Voiding Frequency 5-6 times per day Nocturia 1 xm now Pads Used In 24 Hours 1 depends pad per day now Urine Pad Type Depends SEMG (uV) Baseline 2.0 10 Second Contraction 5.0 Relaxation Good Holding Fair Stability of Hold Fair SEMG Stability of Rest Good PT-OP-Q Treatments Start: 03/26/18 19:14 Freq: Status: Active Protocol: Document 11/02/18 13:14 COUNTS INCLUDE 234 BEDS AT THE [facility] (Rec: 11/02/18 13:26 COUNTS INCLUDE 234 BEDS AT THE [facility] [id number]) Therapeutic Exercises Supine Exercises 7 Supine Exercise Name ball squeeze with bridge Reps/Minutes x 10 6 Supine Exercise Name hamstring stretch and cobra stretch 5 Supine Exercise Name templates for coordination and eccentric control 4 Supine Exercise Name quick contractions of the pelvic floor Reps/Minutes 2 x 10 reps 3 Supine Exercise Name rollouts with theraband Reps/Minutes 3 x 10 reps 2 Supine Exercise Name isometric adductor contraction with pelvic floor facilitation Side bilateral Reps/Minutes 2 x 10 reps 1 Supine Exercise Name pelvic floor facilitation Reps/Minutes 10 reps 3 times per day hold 10 seconds rest 10 seconds Standing Exercises 4 Standing Exercise Name wall press 2 Standing Exercise Name standing rows and shoulder extension Reps/Minutes 2 x 10 each PT-OP-T Assessment and Plan Start: 03/26/18 19:14 Freq: Status: Active Protocol: Document 11/02/18 13:00 COUNTS INCLUDE 234 BEDS AT THE [facility] (Rec: 11/02/18 13:54 COUNTS INCLUDE 234 BEDS AT THE [facility] [email or web address]) Physical Therapy Assessment Assessment Summary Assessment Good tolerance today for ther ex, Maria Eugenia has shown more forward bend in her posture so we added back in postural exercises today to help decrease strain down on her bladder. She tolerated these well today. She will be seeign Dr. Braun for steroid injections to help decrease pain next week. Physical Therapy Plan Frequency and Duration Frequency of Treatment 1x/Week Duration of Treatment 8 weeks Plan of Care Start Date 10/26/18 Plan of Care End Date 12/21/18 Therapeutic Interventions Therapeutic Interventions Home Exercise Program Neuromuscular Re-education Patient/Caregiver Education Self-Care/Home Management Therapeutic Exercises Modalities Biofeedback Next Visit Focus/Plan Next Note Type Treatment Note Next Visit Plan EMG biofeedback for pelvic floor strengthening adding in hip strengthening to suppliment pelvic floor strengthening as well.
--- NOTE | 2018-12-12 18:09 | PT.OTN ---
Current Diagnoses Cystocele, unspecified (12/07/18) Rectocele (12/07/18) Female genital prolapse, unspecified (12/07/18) Frequency of micturition (12/07/18) Nocturia (12/07/18) Feeling of incomplete bladder emptying (12/07/18) Urgency of urination (12/07/18) Physical Therapy Treatment Note PT-OP-A Visit Information Start: 03/26/18 19:14 Freq: Status: Active Protocol: Document 12/07/18 11:15 [facility] (Rec: 12/12/18 18:09 [facility] [email or web address]) Out-Patient Physical Therapy Visit Information Visit Information Visit Type Treatment Note Visit Start Time 11:15 Visit Stop Time 12:00 Total Visit Minutes 45 Visit Number 10 PT-OP-B Current Condition Start: 03/26/18 19:14 Freq: Status: Active Protocol: Document 10/26/18 20:18 [facility] (Rec: 10/31/18 13:01 [facility] [email or web address]) Current Condition History of Current Condition History of Current Condition 82 year old female with who returns to PT today after spending a few months working on trying to fit a pessary to 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 She has seen Dr. Ochoa and was fit with a pessary that worked for her and she returns to PT today for further strengthening now that her pelvic pressure is decreased with the pessary. She also has hx of rectocele, urgency of urination, nocturia, feeling of incomplete bladder emptying, and urinary frequency. Maria Eugenia reports she noticed a bulge in her vagina while in the shower 3 months ago Since then she has had increasing symptoms of pelvic heavyness and bladder irritation. She reports having overactive bladder for years. She has a history of bladder lift repair 10 years ago x 2, hysterectomy at age 46, hemorrhoid surgery PT-OP-C Subjective Start: 03/26/18 19:14 Freq: Status: Active Protocol: Document 12/07/18 11:15 [facility] (Rec: 12/12/18 18:09 [facility] [email or web address]) OP-PT Subjective Patient Comments Patient Comments Doing well with her pessary and decreased c/o pelvic pressure PT-OP-I Pelvic Floor Start: 03/26/18 19:14 Freq: Status: Active Protocol: Document 10/26/18 20:18 [facility] (Rec: 10/31/18 13:01 [facility] [email or web address]) Pelvic Floor Assessment Urine Pelvic Floor Surgery Yes Urinary Symptoms Urge Sensation Prolapse Hesitancy Falling Out Feeling/Heavy Leaks Per Day varies Voiding Frequency 5-6 times per day Nocturia 1 xm now Pads Used In 24 Hours 1 depends pad per day now Urine Pad Type Depends SEMG (uV) Baseline 2.0 10 Second Contraction 5.0 Relaxation Good Holding Fair Stability of Hold Fair SEMG Stability of Rest Good PT-OP-Q Treatments Start: 03/26/18 19:14 Freq: Status: Active Protocol: Document 12/07/18 11:15 [facility] (Rec: 12/12/18 18:09 [facility] [email or web address]) Therapeutic Exercises Supine Exercises 7 Supine Exercise Name ball squeeze with bridge Reps/Minutes x 10 6 Supine Exercise Name hamstring stretch and cobra stretch 5 Supine Exercise Name templates for coordination and eccentric control 4 Supine Exercise Name quick contractions of the pelvic floor Reps/Minutes 2 x 10 reps 3 Supine Exercise Name rollouts with theraband Reps/Minutes 3 x 10 reps 2 Supine Exercise Name isometric adductor contraction with pelvic floor facilitation Side bilateral Reps/Minutes 2 x 10 reps 1 Supine Exercise Name pelvic floor facilitation Reps/Minutes 10 reps 3 times per day hold 10 seconds rest 10 seconds Sidelying Exercises 1 Sidelying Exercise Name clam shells Standing Exercises 4 Standing Exercise Name wall press 3 Standing Exercise Name standing doorway chest stretch 2 Standing Exercise Name standing rows and shoulder extension Reps/Minutes 2 x 10 each 1 Standing Exercise Name scapula squeezes Reps/Minutes 3 x 10 reps PT-OP-T Assessment and Plan Start: 03/26/18 19:14 Freq: Status: Active Protocol: Document 12/07/18 11:15 [facility] (Rec: 12/12/18 18:09 [facility] [email or web address]) Physical Therapy Assessment Assessment Summary Assessment continue to work on posture as this does add to pelvic organ prolapse. Good tolerance for ther ex Physical Therapy Plan Frequency and Duration Frequency of Treatment 1x/Week Duration of Treatment 8 weeks Plan of Care Start Date 10/26/18 Plan of Care End Date 12/21/18 Therapeutic Interventions Therapeutic Interventions Home Exercise Program Neuromuscular Re-education Patient/Caregiver Education Self-Care/Home Management Therapeutic Exercises Modalities Biofeedback Next Visit Focus/Plan Next Note Type Treatment Note Next Visit Plan continue to progress pelvic floor and hip strengthenng as tolerated and work on upright posture
--- NOTE | 2018-12-20 13:43 | PT.OTN ---
Current Diagnoses Cystocele, unspecified (12/14/18) Rectocele (12/14/18) Female genital prolapse, unspecified (12/14/18) Frequency of micturition (12/14/18) Nocturia (12/14/18) Feeling of incomplete bladder emptying (12/14/18) Urgency of urination (12/14/18) Physical Therapy Treatment Note PT-OP-A Visit Information Start: 03/26/18 19:14 Freq: Status: Active Protocol: Document 12/14/18 11:15 [facility] (Rec: 12/20/18 13:43 [facility] [email or web address]) Out-Patient Physical Therapy Visit Information Visit Information Visit Type Treatment Note Visit Start Time 11:15 Visit Stop Time 12:00 Total Visit Minutes 45 Visit Number 11 PT-OP-B Current Condition Start: 03/26/18 19:14 Freq: Status: Active Protocol: Document 10/26/18 20:18 [facility] (Rec: 10/31/18 13:01 [facility] [email or web address]) Current Condition History of Current Condition History of Current Condition 82 year old female with who returns to PT today after spending a few months working on trying to fit a pessary to 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 She has seen Dr. Ochoa and was fit with a pessary that worked for her and she returns to PT today for further strengthening now that her pelvic pressure is decreased with the pessary. She also has hx of rectocele, urgency of urination, nocturia, feeling of incomplete bladder emptying, and urinary frequency. Maria Eugenia reports she noticed a bulge in her vagina while in the shower 3 months ago Since then she has had increasing symptoms of pelvic heavyness and bladder irritation. She reports having overactive bladder for years. She has a history of bladder lift repair 10 years ago x 2, hysterectomy at age 46, hemorrhoid surgery PT-OP-C Subjective Start: 03/26/18 19:14 Freq: Status: Active Protocol: Document 12/07/18 11:15 [facility] (Rec: 12/12/18 18:09 [facility] [email or web address]) OP-PT Subjective Patient Comments Patient Comments Doing well with her pessary and decreased c/o pelvic pressure PT-OP-I Pelvic Floor Start: 03/26/18 19:14 Freq: Status: Active Protocol: Document 10/26/18 20:18 [facility] (Rec: 10/31/18 13:01 [facility] [email or web address]) Pelvic Floor Assessment Urine Pelvic Floor Surgery Yes Urinary Symptoms Urge Sensation Prolapse Hesitancy Falling Out Feeling/Heavy Leaks Per Day varies Voiding Frequency 5-6 times per day Nocturia 1 xm now Pads Used In 24 Hours 1 depends pad per day now Urine Pad Type Depends SEMG (uV) Baseline 2.0 10 Second Contraction 5.0 Relaxation Good Holding Fair Stability of Hold Fair SEMG Stability of Rest Good PT-OP-Q Treatments Start: 03/26/18 19:14 Freq: Status: Active Protocol: Document 12/14/18 11:15 [facility] (Rec: 12/20/18 13:43 [facility] [email or web address]) Therapeutic Exercises Supine Exercises 7 Supine Exercise Name ball squeeze with bridge Reps/Minutes x 10 6 Supine Exercise Name hamstring stretch and cobra stretch 5 Supine Exercise Name templates for coordination and eccentric control 4 Supine Exercise Name quick contractions of the pelvic floor Reps/Minutes 2 x 10 reps 3 Supine Exercise Name rollouts with theraband Reps/Minutes 3 x 10 reps 2 Supine Exercise Name isometric adductor contraction with pelvic floor facilitation Side bilateral Reps/Minutes 2 x 10 reps 1 Supine Exercise Name pelvic floor facilitation Reps/Minutes 10 reps 3 times per day hold 10 seconds rest 10 seconds Sidelying Exercises 1 Sidelying Exercise Name clam shells Standing Exercises 4 Standing Exercise Name wall press 3 Standing Exercise Name standing doorway chest stretch 2 Standing Exercise Name standing rows and shoulder extension Reps/Minutes 2 x 10 each 1 Standing Exercise Name scapula squeezes Reps/Minutes 3 x 10 reps PT-OP-T Assessment and Plan Start: 03/26/18 19:14 Freq: Status: Active Protocol: Document 12/14/18 11:15 [facility] (Rec: 12/20/18 13:43 [facility] [email or web address]) Physical Therapy Assessment Assessment Summary Assessment Maria Eugenia is doing better with her postural exercises, leakage has decreased some and she is working on her exercises at home Physical Therapy Plan Frequency and Duration Frequency of Treatment 1x/Week Duration of Treatment 8 weeks Plan of Care Start Date 10/26/18 Plan of Care End Date 12/21/18 Therapeutic Interventions Therapeutic Interventions Home Exercise Program Neuromuscular Re-education Patient/Caregiver Education Self-Care/Home Management Therapeutic Exercises Modalities Biofeedback Next Visit Focus/Plan Next Note Type Treatment Note Next Visit Plan continue to progress pelvic floor and hip strengthenng as tolerated and work on upright posture
--- NOTE | 2019-06-06 17:34 | PT.OTRE ---
Current Diagnoses Cystocele, unspecified (06/06/19) Rectocele (06/06/19) Female genital prolapse, unspecified (06/06/19) Frequency of micturition (06/06/19) Nocturia (06/06/19) Feeling of incomplete bladder emptying (06/06/19) Urgency of urination (06/06/19) Past Medical History (Last Reviewed 05/04/19 @ 15:46 by Tania Jalloh DO) Depression with anxiety (Chronic) Hypertension (Chronic) Insomnia disorder (Chronic) Obstructive sleep apnea of adult (Chronic) Visit Care Team Role Provider Type Tenisha Narvaez MD Referring Provider Non-Staff Specialty: Urology Address: [address] [place], [address] Email: Breezy Souza MD Primary Care Provider Physician Specialty: Family Practice Address: [address] [place] [address], [address] Email: Natali Roman MD Family Provider Non-Staff Specialty: Medical Address: [address] [place] [address], [address] Email: Sierra Washington MD Attending Provider Non-Staff Specialty: Urology Address: [address] [place] [address], [address] Email: Physical Therapy Re-Evaluation PT-OP-A Visit Information Start: 03/26/18 19:14 Freq: Status: Active Protocol: Document 06/06/19 11:15 [facility] (Rec: 06/07/19 13:41 [facility] [email or web address]) Out-Patient Physical Therapy Visit Information Visit Information Visit Type Re-Evaluation Visit Start Time 11:15 Visit Stop Time 12:00 Total Visit Minutes 45 Visit Number 12 Evaluation Information Evaluation Date 06/06/19 PT-OP-B Current Condition Start: 03/26/18 19:14 Freq: Status: Active Protocol: Document 06/06/19 11:15 [facility] (Rec: 06/07/19 13:41 [facility] [email or web address]) Current Condition History of Current Condition Onset Date april 30 Current Complaints pelvic floor weakness, urinary leakage History of Current Condition Sammy returns to PT today s/ p cystecele repair on 04/30/19 . She notes that she has really taken it easy and has been healing slowly. Her sutures are disolving. She does note a brown and yellow discharge. She has been constipated a great deal and is leaking. She reports sitting on the toilet for long durations to work on fully voiding PT-OP-C Subjective Start: 03/26/18 19:14 Freq: Status: Active Protocol: Document 06/06/19 11:15 [facility] (Rec: 06/07/19 13:41 [facility] [email or web address] OP-PT Subjective Patient Comments Patient Comments Sammy returns to PT today s/ p cystecele repair on 04/30/19 . She notes that she has really taken it easy and has been healing slowly. Her sutures are disolving. She does note a brown and yellow discharge. She has been constipated a great deal and is leaking. She reports sitting on the toilet for long durations to work on fully voiding PT-OP-I Pelvic Floor Start: 03/26/18 19:14 Freq: Status: Active Protocol: Document 06/06/19 11:15 [facility] (Rec: 06/07/19 13:41 [email or web address] Pelvic Floor Assessment Comments Pelvic Floor Comments held off on pelvic floor assessment today as Maria Eugenia has not yet seen her doctor for a recheck since her surgery. She has a appointment with her doctor prior to her next PT visit PT-OP-Q Treatments Start: 03/26/18 19:14 Freq: Status: Active Protocol: Document 06/06/19 11:15 [facility] (Rec: 06/07/19 13:41 [facility] [email or web address]) Therapeutic Exercises Supine Exercises 10 Supine Exercise Name hooklying single knee to chest Reps/Minutes with hip circles each side 9 Supine Exercise Name supine TA facilitation 8 Supine Exercise Name diaphragmatic breathing Comments supine 2 Supine Exercise Name isometric adductor contraction with pelvic floor facilitation Side bilateral Reps/Minutes 2 x 10 reps PT-OP-T Assessment and Plan Start: 03/26/18 19:14 Freq: Status: Active Protocol: Document 06/06/19 11:15 [facility] (Rec: 06/07/19 17:34 [facility] [email or web address]) Physical Therapy Assessment Goals Four Impairment urgency of urination Short Term Goal (STG) Maria Eugenia is educated on bladder irritants and bladder retraining to help decrease urinary urgency STG Duration GOAL MET Boring Mill Set Up Operator Vertical Goal (LTG) Billie is able to void every 2-3 hours during the day . LTG Duration 8 weeks Three Impairment Decreased endurance of the pelvic floor Short Term Goal (STG) Improve endurance of the pelvic floor to 10 second hold time or greater STG Duration 6 weeks Two Impairment poor postural habits and weakness Short Term Goal (STG) Maria Eugenia is educated on postural modification and stretches to decrease forward lean and decrease downward pressure onto the bladder STG Duration 4 weeks One Impairment weakness of the pelvic floor Boring Mill Set Up Operator Vertical Goal (LTG) Maria Eugenia demonstrates improved contraction and strength of the pelvic floor by one muscle grade or better for improved support of the pelvic organs LTG Duration 8 weeks Assessment Summary Assessment Maria Eugenia returns to PT today following her surgical repair of her cystocele. She has not been seen in PT since Dec 14 2018. She had not yet been to her doctor for her post op visit so I didn't feel comfortable with a internal examination until she had been cleared. She has been very careful following surgery and has not done much in the way of exercise. Maria Eugenia's posture was more forward today and we talked alot about postural modifications today for decreasing fall risk, decreasing back pain, and decreasing strain down onto her bladder. She notes overall decreased c/o pelvic pressure. She continues to have urinary incontinence going through 2 large pads per day. She would benefit from pelvic floor strengthening, postural exercises, and overall core stability exercises. Physical Therapy Plan Frequency and Duration Frequency of Treatment 1x/Week Duration of Treatment 8 weeks Plan of Care Start Date 06/06/19 Plan of Care End Date 08/01/19 Therapeutic Interventions Therapeutic Interventions Home Exercise Program, Neuromuscular Re-education, Patient/Caregiver Education, Self-Care/Home Management, Therapeutic Exercises Modalities Biofeedback Next Visit Focus/Plan Next Note Type Treatment Note Next Visit Plan If pt is cleared to begin pelvic floor strengthening we will return to biofeedback and pelvic floor work next visit.
--- NOTE | 2019-06-07 17:34 | PT.OPPOC ---
Current Diagnoses Cystocele, unspecified (06/06/19) Rectocele (06/06/19) Female genital prolapse, unspecified (06/06/19) Frequency of micturition (06/06/19) Nocturia (06/06/19) Feeling of incomplete bladder emptying (06/06/19) Urgency of urination (06/06/19) Visit Care Team Role Provider Type Tenisha Narvaez MD Referring Provider Non-Staff Specialty: Urology Address: [address] [place], [address] Email: Breezy Souza MD Primary Care Provider Physician Specialty: Family Practice Address: [address] [place] [address], [address] Email: Natali Roman MD Family Provider Non-Staff Specialty: Medical Address: [address] [place] [address], [address] Email: Sierra Washington MD Attending Provider Non-Staff Specialty: Urology Address: [address] [place] [address], [address] Email: Plan Of Care PT-OP-T Assessment and Plan Start: 03/26/18 19:14 Freq: Status: Active Protocol: Document 06/06/19 11:15 [facility] (Rec: 06/07/19 17:34 [facility] [email or web address]) Physical Therapy Assessment Goals Four Impairment urgency of urination Short Term Goal (STG) Maria Eugenia is educated on bladder irritants and bladder retraining to help decrease urinary urgency STG Duration GOAL MET Sound Effects Supervisor Goal (LTG) Billie is able to void every 2-3 hours during the day . LTG Duration 8 weeks Three Impairment Decreased endurance of the pelvic floor Short Term Goal (STG) Improve endurance of the pelvic floor to 10 second hold time or greater STG Duration 6 weeks Two Impairment poor postural habits and weakness Short Term Goal (STG) Maria Eugenia is educated on postural modification and stretches to decrease forward lean and decrease downward pressure onto the bladder STG Duration 4 weeks One Impairment weakness of the pelvic floor Usp Goal (LTG) Maria Eugenia demonstrates improved contraction and strength of the pelvic floor by one muscle grade or better for improved support of the pelvic organs LTG Duration 8 weeks Assessment Summary Assessment Maria Eugenia returns to PT today following her surgical repair of her cystocele. She has not been seen in PT since Dec 14 2018. She had not yet been to her doctor for her post op visit so I didn't feel comfortable with a internal examination until she had been cleared. She has been very careful following surgery and has not done much in the way of exercise. Maria Eugenia's posture was more forward today and we talked a lot about postural modifications today for decreasing fall risk, decreasing back pain, and decreasing strain down onto her bladder. She notes overall decreased c/o pelvic pressure. She continues to have urinary incontinence going through 2 large pads per day. She would benefit from pelvic floor strengthening, postural exercises, and overall core stability exercises. Physical Therapy Plan Frequency and Duration Frequency of Treatment 1x/Week Duration of Treatment 8 weeks Plan of Care Start Date 06/06/19 Plan of Care End Date 08/01/19 Therapeutic Interventions Therapeutic Interventions Home Exercise Program, Neuromuscular Re-education, Patient/Caregiver Education, Self-Care/Home Management, Therapeutic Exercises Modalities Biofeedback Next Visit Focus/Plan Next Note Type Treatment Note Next Visit Plan If pt is cleared to begin pelvic floor strengthening we will return to biofeedback and pelvic floor work next visit. Plan of Care Dates Plan of Care Start Date 06/06/19 Plan of Care End Date 08/01/19
--- NOTE | 2019-07-19 12:44 | PT.OTN ---
Current Diagnoses Cystocele, unspecified (07/19/19) Rectocele (07/19/19) Female genital prolapse, unspecified (07/19/19) Frequency of micturition (07/19/19) Nocturia (07/19/19) Feeling of incomplete bladder emptying (07/19/19) Urgency of urination (07/19/19) Physical Therapy Treatment Note PT-OP-A Visit Information Start: 03/26/18 19:14 Freq: Status: Active Protocol: Document 07/19/19 12:36 [facility] (Rec: 07/19/19 12:44 [facility] [email or web address]) Out-Patient Physical Therapy Visit Information Visit Information Visit Type Treatment Note Visit Start Time 11:15 Visit Stop Time 12:00 Total Visit Minutes 45 Visit Number 13 PT-OP-B Current Condition Start: 03/26/18 19:14 Freq: Status: Active Protocol: Document 06/06/19 11:15 [facility] (Rec: 06/07/19 13:41 [facility] [email or web address]) Current Condition History of Current Condition Onset Date april 30 Current Complaints pelvic floor weakness, urinary leakage History of Current Condition Sammy returns to PT today s/ p cystecele repair on 04/30/19 . She notes that she has really taken it easy and has been healing slowly. Her sutures are disolving. She does note a brown and yellow discharge. She has been constipated a great deal and is leaking. She reports sitting on the toilet for long durations to work on fully voiding PT-OP-C Subjective Start: 03/26/18 19:14 Freq: Status: Active Protocol: Document 07/19/19 11:27 [facility] (Rec: 07/19/19 11:33 [facility] [id number]) OP-PT Subjective Patient Comments Patient Comments Pt saw the surgeon assistant for her post op visit and the examination showed that she was still prolapsing. She is feeling the bulge again and it has gotten largeer. Feels like she is sitting on a bulge there is still a trace of blood which is coming from the surgace. The urgency is very present now. Has no control right now of her bladder. She also feel as if she cant exercise right now because her right foot hurts right now. The bike bothers her bladder. Patient Reported Progress Worse PT-OP-I Pelvic Floor Start: 03/26/18 19:14 Freq: Status: Active Protocol: Document 06/06/19 11:15 [facility] (Rec: 06/07/19 13:41 [facility] [email or web address]) Pelvic Floor Assessment Comments Pelvic Floor Comments held off on pelvic floor assessment today as Maria Eugenia has not yet seen her doctor for a recheck since her surgery. She has a appointment with her doctor prior to her next PT visit PT-OP-Q Treatments Start: 03/26/18 19:14 Freq: Status: Active Protocol: Document 07/19/19 12:36 [facility] (Rec: 07/19/19 12:44 [facility] [email or web address]) Therapeutic Exercises Supine Exercises 7 Supine Exercise Name ball squeeze with bridge Reps/Minutes x 10 4 Supine Exercise Name quick contractions of the pelvic floor Reps/Minutes 2 x 10 reps 3 Supine Exercise Name rollouts with theraband Reps/Minutes 3 x 10 reps 2 Supine Exercise Name isometric adductor contraction with pelvic floor facilitation Side bilateral Reps/Minutes 2 x 10 reps 1 Supine Exercise Name pelvic floor facilitation Reps/Minutes 10 reps 3 times per day hold 10 seconds rest 10 seconds Manual Therapy Treatment Manual Techniques 1 Type manual recheck of the pelvic floor musculature Comments This was the first time I have assessed Maria Eugenia's pelvic floor since her surgery. She continues to have c/o heavyness. There is still a prolapse of her bladder I would call a grade II. Anterior simmons of the pelvic floor are very weak. I added a wedge to Maria Eugenia's home program to decrease c/o pelvic pressure PT-OP-T Assessment and Plan Start: 03/26/18 19:14 Freq: Status: Active Protocol: Document 07/19/19 12:36 [facility] (Rec: 07/19/19 12:44 [facility] [email or web address]) Physical Therapy Assessment Assessment Summary Assessment Manual pelvic floor assessment shows still a grade II cystocele. She feels pressure when riding the stationary bike and with walking she is having right metatarsal pain. I did show her some stretches for her foot as walking is such a good exercise for her. She did well today with elevating her pelvis for pelvic floor exercises. Physical Therapy Plan Frequency and Duration Frequency of Treatment 1x/Week Duration of Treatment 8 weeks Plan of Care Start Date 06/06/19 Plan of Care End Date 08/01/19 Therapeutic Interventions Therapeutic Interventions Home Exercise Program, Neuromuscular Re-education, Patient/Caregiver Education, Self-Care/Home Management, Therapeutic Exercises Modalities Biofeedback Next Visit Focus/Plan Next Note Type Treatment Note Next Visit Plan Continue with pelvic floor strengthening, elevating the pelvis to decrease decompression.
--- NOTE | 2019-07-26 17:05 | PT.OTN ---
Current Diagnoses Cystocele, unspecified (07/26/19) Rectocele (07/26/19) Female genital prolapse, unspecified (07/26/19) Frequency of micturition (07/26/19) Nocturia (07/26/19) Feeling of incomplete bladder emptying (07/26/19) Urgency of urination (07/26/19) Physical Therapy Treatment Note PT-OP-A Visit Information Start: 03/26/18 19:14 Freq: Status: Active Protocol: Document 07/26/19 13:09 [facility] (Rec: 07/26/19 13:15 [facility] [id number]) Out-Patient Physical Therapy Visit Information Visit Information Visit Type Treatment Note Visit Start Time 13:00 Visit Stop Time 13:45 Total Visit Minutes 45 Visit Number 14 PT-OP-B Current Condition Start: 03/26/18 19:14 Freq: Status: Active Protocol: Document 06/06/19 11:15 [facility] (Rec: 06/07/19 13:41 [facility] [email or web address]) Current Condition History of Current Condition Onset Date april 30 Current Complaints pelvic floor weakness, urinary leakage History of Current Condition Sammy returns to PT today s/ p cystecele repair on 04/30/19 . She notes that she has really taken it easy and has been healing slowly. Her sutures are disolving. She does note a brown and yellow discharge. She has been constipated a great deal and is leaking. She reports sitting on the toilet for long durations to work on fully voiding PT-OP-C Subjective Start: 03/26/18 19:14 Freq: Status: Active Protocol: Document 07/26/19 13:09 [facility] (Rec: 07/26/19 13:15 [facility] [id number]) OP-PT Subjective Patient Comments Patient Comments pt reports she is being treated for a UTI. She started on tuesday this week with medication . Blood in her urine is what brought her in to treatment. PT-OP-I Pelvic Floor Start: 03/26/18 19:14 Freq: Status: Active Protocol: Document 06/06/19 11:15 [facility] (Rec: 06/07/19 13:41 [facility] [email or web address]) Pelvic Floor Assessment Comments Pelvic Floor Comments held off on pelvic floor assessment today as Maria Eugenia has not yet seen her doctor for a recheck since her surgery. She has a appointment with her doctor prior to her next PT visit PT-OP-Q Treatments Start: 03/26/18 19:14 Freq: Status: Active Protocol: Document 07/26/19 13:09 [facility] (Rec: 07/26/19 13:15 [facility] [id number]) Therapeutic Exercises Supine Exercises 10 Supine Exercise Name hooklying single knee to chest Reps/Minutes with hip circles each side 9 Supine Exercise Name supine TA facilitation 8 Supine Exercise Name diaphragmatic breathing Comments supine 7 Supine Exercise Name ball squeeze with bridge Reps/Minutes x 10 6 Supine Exercise Name hamstring stretch and cobra stretch 5 Supine Exercise Name templates for coordination and eccentric control 4 Supine Exercise Name quick contractions of the pelvic floor Reps/Minutes 2 x 10 reps 3 Supine Exercise Name rollouts with theraband Reps/Minutes 3 x 10 reps 2 Supine Exercise Name isometric adductor contraction with pelvic floor facilitation Side bilateral Reps/Minutes 2 x 10 reps 1 Supine Exercise Name pelvic floor facilitation Reps/Minutes 10 reps 3 times per day hold 10 seconds rest 10 seconds PT-OP-T Assessment and Plan Start: 03/26/18 19:14 Freq: Status: Active Protocol: Document 07/26/19 16:52 [facility] (Rec: 07/26/19 17:05 [facility] [email or web address]) Physical Therapy Assessment Goals Four Impairment urgency of urination Short Term Goal (STG) Maria Eugenia is educated on bladder irritants and bladder retraining to help decrease urinary urgency STG Duration GOAL MET Director Of Assessing Goal (LTG) Billie is able to void every 2-3 hours during the day . LTG Duration 8 weeks Three Impairment Decreased endurance of the pelvic floor Short Term Goal (STG) Improve endurance of the pelvic floor to 10 second hold time or greater STG Duration 6 weeks Director Of Assessing Goal (LTG) GOAL NOT YET MET Two Impairment poor postural habits and weakness Short Term Goal (STG) Maria Eugenia is educated on postural modification and stretches to decrease forward lean and decrease downward pressure onto the bladder STG Duration 4 weeks Director Of Assessing Goal (LTG) GOAL MET One Impairment weakness of the pelvic floor Director Of Assessing Goal (LTG) Maria Eugenia demonstrates improved contraction and strength of the pelvic floor by one muscle grade or better for improved support of the pelvic organs GOAL NOT YET MET LTG Duration 8 weeks Progress Towards Goals Progress Towards Goals Slow Progress due to Medical Issues Progress Comments Maria Eugenia has only been seen x 3 visits since her surgery. She is noting the full prolapse again and also has been dealing with a UTI. She was experiencing bleeding with urination. The UTI is now resolving with antibiotics. PT has been limited to 3 visits due to this. Assessment Summary Assessment Maria Eugenia felt well enough to come to PT today and since she has been on the antibiotics she is no longer feeling itching or burning. She reports no more bleeding since she started the antibiotics. With exam tody Maria Eugenia's bladder was fully prolapsed and visable with a grade 4 prolapse at today's visit. Maria Eugenia is frustrated with the pelvic pressure and heavyness that has reoccured since her surgery but is wanting to work on strengthening. Maria Eugenia would benefit from continued PT. Physical Therapy Plan Frequency and Duration Frequency of Treatment 1x/Week Duration of Treatment 8 weeks Plan of Care Start Date 06/06/19 Plan of Care End Date 08/01/19 Therapeutic Interventions Therapeutic Interventions Home Exercise Program, Neuromuscular Re-education, Patient/Caregiver Education, Self-Care/Home Management, Therapeutic Exercises Modalities Biofeedback Next Visit Focus/Plan Next Note Type Treatment Note Next Visit Plan Continue with pelvic floor strengthening, elevating the pelvis to decrease decompression.
--- NOTE | 2019-07-26 17:07 | PT.OPPOC ---
Physical, Occupational & Speech Therapy At [facility] Current Diagnoses Cystocele, unspecified (07/26/19) Rectocele (07/26/19) Female genital prolapse, unspecified (07/26/19) Frequency of micturition (07/26/19) Nocturia (07/26/19) Feeling of incomplete bladder emptying (07/26/19) Urgency of urination (07/26/19) Visit Care Team Role Provider Type Tenisha Narvaez MD Referring Provider Non-Staff Specialty: Urology Address: [address] [place], [address] Email: Breezy Souza MD Primary Care Provider Physician Specialty: Family Practice Address: [address] [place], [address] Email: Natali Roman MD Family Provider Non-Staff Specialty: Medical Address: [address] [place] [address], [address] Email: Sierra Washington MD Attending Provider Non-Staff Specialty: Urology Address: [address] [place] [address], [address] Email: Plan Of Care PT-OP-T Assessment and Plan Start: 03/26/18 19:14 Freq: Status: Active Protocol: Document 07/26/19 16:52 [facility] (Rec: 07/26/19 17:05 [facility] [email or web address]) Physical Therapy Assessment Goals Four Impairment urgency of urination Short Term Goal (STG) Maria Eugenia is educated on bladder irritants and bladder retraining to help decrease urinary urgency STG Duration GOAL MET Group Home Goal (LTG) Billie is able to void every 2-3 hours during the day . LTG Duration 8 weeks Three Impairment Decreased endurance of the pelvic floor Short Term Goal (STG) Improve endurance of the pelvic floor to 10 second hold time or greater STG Duration 6 weeks Group Home Goal (LTG) GOAL NOT YET MET Two Impairment poor postural habits and weakness Short Term Goal (STG) Maria Eugenia is educated on postural modification and stretches to decrease forward lean and decrease downward pressure onto the bladder STG Duration 4 weeks Group Home Goal (LTG) GOAL MET One Impairment weakness of the pelvic floor Group Home Goal (LTG) Maria Eugenia demonstrates improved contraction and strength of the pelvic floor by one muscle grade or better for improved support of the pelvic organs GOAL NOT YET MET LTG Duration 8 weeks Progress Towards Goals Progress Towards Goals Slow Progress due to Medical Issues Progress Comments Maria Eugenia has only been seen x 3 visits since her surgery. She is noting the full prolapse again and also has been dealing with a UTI. She was experiencing bleeding with urination. The UTI is now resolving with antibiotics. PT has been limited to 3 visits due to this. Assessment Summary Assessment Maria Eugenia felt well enough to come to PT today and since she has been on the antibiotics she is no longer feeling itching or burning. She reports no more bleeding since she started the antibiotics. With exam today [place] bladder was fully prolapsed and visable with a grade 4 prolapse at today's visit. Maria Eugenia is frustrated with the pelvic pressure and heaviness that has reoccured since her surgery but is wanting to work on strengthening. Maria Eugenia would benefit from continued PT. Physical Therapy Plan Frequency and Duration Frequency of Treatment 1x/Week Duration of Treatment 8 weeks Plan of Care Start Date 07/26/19 Plan of Care End Date 09/26/19 Therapeutic Interventions Therapeutic Interventions Home Exercise Program, Neuromuscular Re-education, Patient/Caregiver Education, Self-Care/Home Management, Therapeutic Exercises Modalities Biofeedback Next Visit Focus/Plan Next Note Type Treatment Note Next Visit Plan Continue with pelvic floor strengthening, elevating the pelvis to decrease decompression. Plan of Care Dates Plan of Care Start Date 07/26/19 Plan of Care End Date 09/26/19 Electronically Signed by: Tenisha Paris, PT 07/26/19 [id number] Please Sign and Return: I have reviewed this Plan of Care and certify that the skilled therapy services above are required to meet the patient?s needs. Physician Signature Date Printed Name and Credentials Clinical Instructor Signature Printed Name and Credentials
--- NOTE | 2020-03-24 10:10 | PT.OPDS ---
Current Diagnoses Cystocele, unspecified (07/26/19) Rectocele (07/26/19) Female genital prolapse, unspecified (07/26/19) Frequency of micturition (07/26/19) Nocturia (07/26/19) Feeling of incomplete bladder emptying (07/26/19) Urgency of urination (07/26/19) Visit Care Team Role Provider Type Tenisha Narvaez MD Referring Provider Non-Staff Specialty: Urology Address: [address] [place], [address] Email: Breezy Souza MD Primary Care Provider Physician Specialty: Family Practice Address: [address] [place] [address], [id number] Email: Natali Roman MD Family Provider Non-Staff Specialty: Medical Address: [address] [place] [address], [phone] Email: Sierra Washington MD Attending Provider Non-Staff Specialty: Urology Address: [address] [place] [address], [phone] Email: Visit Number Visit Number 14 Discharge Summary PT-OP-B Current Condition Start: 03/26/18 19:14 Freq: Status: Active Protocol: Document 06/06/19 11:15 [facility] (Rec: 06/07/19 13:41 [facility] [id number]) Current Condition History of Current Condition Onset Date april 30 Current Complaints pelvic floor weakness, urinary leakage History of Current Condition Sammy returns to PT today s/ p cystecele repair on 04/30/19 . She notes that she has really taken it easy and has been healing slowly. Her sutures are disolving. She does note a brown and yellow discharge. She has been constipated a great deal and is leaking. She reports sitting on the toilet for long durations to work on fully voiding PT-OP-C Subjective Start: 03/26/18 19:14 Freq: Status: Active Protocol: Document 07/26/19 13:09 [facility] (Rec: 07/26/19 13:15 [facility] [id number]) OP-PT Subjective Patient Comments Patient Comments pt reports she is being treated for a UTI. She started on tuesday this week with medication . Blood in her urine is what brought her in to treatment. PT-OP-I Pelvic Floor Start: 03/26/18 19:14 Freq: Status: Active Protocol: Document 06/06/19 11:15 [facility] (Rec: 06/07/19 13:41 [facility] [id number]) Pelvic Floor Assessment Comments Pelvic Floor Comments held off on pelvic floor assessment today as Maria Eugenia has not yet seen her doctor for a recheck since her surgery. She has a appointment with her doctor prior to her next PT visit PT-OP-T Assessment and Plan Start: 03/26/18 19:14 Freq: Status: Active Protocol: Document 03/24/20 10:09 [facility] (Rec: 03/24/20 10:10 [facility] [id number]) Physical Therapy Assessment Assessment Summary Assessment Maria Eugenia has not been seen since Jul 2019 due to complications with her bladder surgery. She has recently had a surgical revision and will resume PT. She will be DC today and will begin PT again in April Physical Therapy Plan Discharge Physical Therapy Discharge Reasons Change in Medical Status
== END 2020-03-25 11:35 ==
LOC: PHYS 13:00
PROVIDERS: Family Provider Family Medicine; PCP Family Medicine; Referring Provider Urology; Visit Provider Urology
DX: R39.15 Urgency of urination (principal); R35.1 Nocturia; R39.14 Feeling of incomplete bladder emptying; R35.0 Frequency of micturition; N81.9 Female genital prolapse, unspecified; N81.10 Cystocele, unspecified; N81.6 Rectocele
CPT/HCPCS: 97110; 97140; 97161; 97164

== ENCOUNTER 2020-05-22 11:46 | Outpatient (RCR) | payer MEDICARE, SELFPAY ==
--- NOTE | 2020-05-29 09:22 | PT.OIE ---
Current Diagnoses Urge incontinence (05/22/20) Past Medical History (Last Updated 08/27/19 @ 22:08 by POORNIMA Mansfield) Asthma (Chronic) Diplopia (Chronic) Generalized anxiety disorder (Chronic) Hypertension (Chronic 01/22/11) Insomnia disorder (Chronic) Mixed hyperlipidemia (Chronic 01/22/11) Obstructive sleep apnea of adult (Chronic) Other depressive disorder (Chronic 01/22/11) SHAGGY (stress urinary incontinence, female) (Chronic ~10/17/18) Vaginal prolapse (Chronic ~10/17/18) Visit Care Team Role Provider Type POORNIMA Penn Family Provider Non-Staff Primary Care Provider Specialty: Medical Address: [address] [place] [address], [phone] Email: Sierra Washington MD Attending Provider Non-Staff Referring Provider Specialty: Urology Address: [address] [place] [address], [phone] Email: Physical Therapy Initial Evaluation PT-OP-A Visit Information Start: 05/22/20 11:57 Freq: Status: Active Protocol: Document 05/22/20 11:58 [facility] (Rec: 05/22/20 12:20 [facility] [id number]) Out-Patient Physical Therapy Visit Information Visit Information Visit Type Initial Evaluation Visit Start Time 12:00 Visit Stop Time 12:45 Total Visit Minutes 45 Visit Number 1 Evaluation Information Evaluation Date 05/22/20 PT-OP-B Current Condition Start: 05/22/20 11:57 Freq: Status: Active Protocol: Document 05/22/20 11:58 [facility] (Rec: 05/22/20 12:20 [facility] [id number]) Current Condition History of Current Condition Onset Date 02/05/20 prolapse repair Current Complaints pelvic floor weakness, urinary leakage History of Current Condition February 04 had robotic surgery for pelvic floor and bladder suspension surgery. This was a revision Maria Eugenia reprherman at night if she goes to bed without being relaxed she kristine have to wake up to void but she notes no leakage. She can go back to sleep but the next time she wakes up her pad is wet. IF she hasn't had a bowel movement her stress incontinence is a lot worse. If her bowels are full she will feel pelvic pressure. Her first surgery was April 2019 PT-OP-C Subjective Start: 05/22/20 11:57 Freq: Status: Active Protocol: Document 05/22/20 12:20 [facility] (Rec: 05/22/20 12:21 [facility] [id number]) Patient Questionnaires Pelvic Floor Distress Inventory Questionnaire (PFDI- SF20) Pelvic Floor Score 7 PT-OP-I Pelvic Floor Start: 05/22/20 11:57 Freq: Status: Active Protocol: Document 05/22/20 16:00 [facility] (Rec: 05/29/20 09:22 [facility] [id number]) Pelvic Floor Assessment Urine Pelvic Floor Surgery Yes Urinary Symptoms Urge Sensation Leakage Size Large Leakage Cause Cough,Exercise,Lifting,Sneeze, Urge Leaks Per Day constant Voiding Frequency 1.5-2 hours Nocturia yes Urine Pad Type Depends Pelvic Clock Pelvic Clock 12-3 Atrophy Pelvic Clock 3-6 Atrophy Pelvic Clock 6-9 Atrophy Pelvic Clock 9-12 Atrophy Contraction Ability Voluntary Contraction Weak Voluntary Relaxation Weak Manual Muscle Testing Left 2 Manual Muscle Testing Right 2 Manual Muscle Testing Anterior 1 Manual Muscle Testing Posterior 2 Comments Pelvic Floor Comments Maria Eugenia is able to facilitate contraction of her pelvic floor in all parts of the levator ani however she tests very weak. PT-OP-J Posture/Palpation/Skin Start: 05/22/20 11:57 Freq: Status: Active Protocol: Document 05/22/20 12:21 [facility] (Rec: 05/22/20 12:22 [facility] [id number]) Posture Evaluation Comments Posture Comments Mihai stands with a forward bent posture, increased thoracic kyphosis, this is more than I have see with her before. She is using a SPC for ambulation PT-OP-M Strength Start: 05/22/20 11:57 Freq: Status: Active Protocol: Document 05/22/20 16:00 [facility] (Rec: 05/28/20 10:49 [facility] [id number]) Trunk Strength Trunk Manual Muscle Testing Comments poor abdominal strength with forward flexed posture and trunk. PT-OP-Q Treatments Start: 05/22/20 11:57 Freq: Status: Active Protocol: Document 05/22/20 16:00 [facility] (Rec: 05/28/20 10:49 [facility] [id number]) Therapeutic Exercises Supine Exercises 3 Supine Exercise Name rollouts with theraband Reps/Minutes 3 x 10 reps 2 Supine Exercise Name isometric adductor contraction with pelvic floor facilitation Side bilateral Reps/Minutes 2 x 10 reps 1 Supine Exercise Name pelvic floor facilitation Reps/Minutes 10 reps 3 times per day hold 10 seconds rest 10 seconds PT-OP-T Assessment and Plan Start: 05/22/20 11:57 Freq: Status: Active Protocol: Document 05/22/20 16:00 [facility] (Rec: 05/29/20 09:20 [facility] [id number]) Physical Therapy Assessment Goals Four Impairment Urinary leakage that is happening frequently throughout the day Mcc Goal (LTG) Maria Eugenia is able to use one pad per day and reports a overall reduction in urinary leakage. She is able to return to her goal of walking without leaking LTG Duration 8 weeks Three Impairment Decreased endurance of the pelvic floor Short Term Goal (STG) Improve endurance of the pelvic floor to 10 second hold time or greater STG Duration 6 weeks Two Impairment poor postural habits and weakness Short Term Goal (STG) Maria Eugenia is educated on postural modification and stretches to decrease forward lean and decrease downward pressure onto the bladder STG Duration 5 weeks One Impairment weakness of the pelvic floor Mcc Goal (LTG) Maria Eugenia demonstrates improved contraction and strength of the pelvic floor by one muscle grade or better for improved support of the pelvic organs. MMT of 3/5 or better LTG Duration 8 weeks Assessment Summary Assessment Maria Eugenia returns to PT today folowing her revision of her bladder sling repair 02/05/20. SHe notes she has felt like this time her bladder isstaying in place. She reports she does feel weak overall as with covid 19 pandemic she hasn't been out of the house much to exercise. I noticed today that Maria Eugenia is standing in a much more flexed forward posture than when I last worked with her before the pandemic. She is experiencingurinary stress and urge incontinence and notes that it happens frequently throughout the day. She is able to void every couple of hours if she has been sitting. With pelvic examination today and strength test Maria Eugenia tests weakn thoughout her pelvic floor and she lacks full endurance of her pelvic floor muscles. She is weak in her core and postural muscles as well and standing with a forward lean can contribute to urinary stress incontinence. She is a good candidate for PT and for strengthening both her pelvic floor as well as her core. Physical Therapy Plan Frequency and Duration Frequency of Treatment 1x/Week Duration of Treatment 8 Plan of Care Start Date 05/22/20 Plan of Care End Date 07/17/20 Therapeutic Interventions Therapeutic Interventions Home Exercise Program, Neuromuscular Re-education, Patient/Caregiver Education, Self-Care/Home Management, Therapeutic Exercises Modalities Biofeedback Next Visit Focus/Plan Next Note Type Treatment Note Next Visit Plan EMG biofeedback for assistance with pelvic floor strengthening, postural exercise to begin working the trunk muscles to decrease forward lean, core stabilization exercises
--- NOTE | 2020-05-29 09:23 | PT.OPPOC ---
Physical, Occupational & Speech Therapy At [facility] Current Diagnoses Urge incontinence (05/22/20) Visit Care Team Role Provider Type POORNIMA Penn Family Provider Non-Staff Primary Care Provider Specialty: Medical Address: [address] [place], [address] Email: Sierra Washington MD Attending Provider Non-Staff Referring Provider Specialty: Urology Address: [address] [place], [place] [address], [address] Email: Plan Of Care PT-OP-T Assessment and Plan Start: 05/22/20 11:57 Freq: Status: Active Protocol: Document 05/22/20 16:00 [facility] (Rec: 05/29/20 09:20 [facility] [id number]) Physical Therapy Assessment Goals Four Impairment Urinary leakage that is happening frequently throughout the day Senior Engineer Goal (LTG) Maria Eugenia is able to use one pad per day and reports a overall reduction in urinary leakage. She is able to return to her goal of walking without leaking LTG Duration 8 weeks Three Impairment Decreased endurance of the pelvic floor Short Term Goal (STG) Improve endurance of the pelvic floor to 10 second hold time or greater STG Duration 6 weeks Two Impairment poor postural habits and weakness Short Term Goal (STG) Maria Eugenia is educated on postural modification and stretches to decrease forward lean and decrease downward pressure onto the bladder STG Duration 5 weeks One Impairment weakness of the pelvic floor [facility] Goal (LTG) Maria Eugenia demonstrates improved contraction and strength of the pelvic floor by one muscle grade or better for improved support of the pelvic organs. MMT of 3/5 or better LTG Duration 8 weeks Assessment Summary Assessment Maria Eugenia returns to PT today following her revision of her bladder sling repair 02/05/20. She notes she has felt like this time her bladder is staying in place. She reports she does feel weak overall as with covid 19 pandemic she hasn't been out of the house much to exercise. I noticed today that Maria Eugenia is standing in a much more flexed forward posture than when I last worked with her before the pandemic. She is experiencing urinary stress and urge incontinence and notes that it happens frequently throughout the day. She is able to void every couple of hours if she has been sitting. With pelvic examination today and strength test Maria Eugenia tests weak throughout her pelvic floor and she lacks full endurance of her pelvic floor muscles. She is weak in her core and postural muscles as well and standing with a forward lean can contribute to urinary stress incontinence. She is a good candidate for PT and for strengthening both her pelvic floor as well as her core. Physical Therapy Plan Frequency and Duration Frequency of Treatment 1x/Week Duration of Treatment 8 Plan of Care Start Date 05/22/20 Plan of Care End Date 07/17/20 Therapeutic Interventions Therapeutic Interventions Home Exercise Program, Neuromuscular Re-education, Patient/Caregiver Education, Self-Care/Home Management, Therapeutic Exercises Modalities Biofeedback Next Visit Focus/Plan Next Note Type Treatment Note Next Visit Plan EMG biofeedback for assistance with pelvic floor strengthening, postural exercise to begin working the trunk muscles to decrease forward lean, core stabilization exercises Plan of Care Dates Plan of Care Start Date 05/22/20 Plan of Care End Date 07/17/20 Electronically Signed by: Tenisha Paris, PT 05/29/20 0924 Please Sign and Return: I have reviewed this Plan of Care and certify that the skilled therapy services above are required to meet the patient?s needs. Physician Signature Date Printed Name and Credentials Clinical Instructor Signature Printed Name and Credentials
--- NOTE | 2020-09-03 13:37 | PT.OPDS ---
Current Diagnoses Urge incontinence (05/22/20) Visit Care Team Role Provider Type POORNIMA Penn Family Provider Non-Staff Primary Care Provider Specialty: Medical Address: [address] [place] [address], [address] Email: Sierra Washington MD Attending Provider Non-Staff Referring Provider Specialty: Urology Address: [address] [place] [address], [address] Email: Visit Number Visit Number 1 Discharge Summary PT-OP-B Current Condition Start: 05/22/20 11:57 Freq: Status: Active Protocol: Document 05/22/20 11:58 [facility] (Rec: 05/22/20 12:20 [facility] [id number]) Current Condition History of Current Condition Onset Date 02/05/20 prolapse repair Current Complaints pelvic floor weakness, urinary leakage History of Current Condition February 04 had robotic surgery for pelvic floor and bladder suspension surgery. This was a revision Maria Eugenia reprherman at night if she goes to bed without being relaxed she kristine have to wake up to void but she notes no leakage. She can go back to sleep but the next time she wakes up her pad is wet. IF she hasn't had a bowel movement her stress incontinence is a lot worse. If her bowels are full she will feel pelvic pressure. Her first surgery was April 2019 PT-OP-C Subjective Start: 05/22/20 11:57 Freq: Status: Active Protocol: Document 05/22/20 12:20 [facility] (Rec: 05/22/20 12:21 [facility] [id number]) Patient Questionnaires Pelvic Floor Distress Inventory Questionnaire (PFDI- SF20) Pelvic Floor Score 7 PT-OP-I Pelvic Floor Start: 05/22/20 11:57 Freq: Status: Active Protocol: Document 05/22/20 16:00 [facility] (Rec: 05/29/20 09:22 [facility] [id number]) Pelvic Floor Assessment Urine Pelvic Floor Surgery Yes Urinary Symptoms Urge Sensation Leakage Size Large Leakage Cause Cough,Exercise,Lifting,Sneeze, Urge Leaks Per Day constant Voiding Frequency 1.5-2 hours Nocturia yes Urine Pad Type Depends Pelvic Clock Pelvic Clock 12-3 Atrophy Pelvic Clock 3-6 Atrophy Pelvic Clock 6-9 Atrophy Pelvic Clock 9-12 Atrophy Contraction Ability Voluntary Contraction Weak Voluntary Relaxation Weak Manual Muscle Testing Left 2 Manual Muscle Testing Right 2 Manual Muscle Testing Anterior 1 Manual Muscle Testing Posterior 2 Comments Pelvic Floor Comments Maria Eugenia is able to facilitate contraction of her pelvic floor in all parts of the levator ani however she tests very weak. PT-OP-J Posture/Palpation/Skin Start: 05/22/20 11:57 Freq: Status: Active Protocol: Document 05/22/20 12:21 [facility] (Rec: 05/22/20 12:22 [facility] [id number]) Posture Evaluation Comments Posture Comments Mihai stands with a forward bent posture, increased thoracic kyphosis, this is more than I have see with her before. She is using a SPC for ambulation PT-OP-M Strength Start: 05/22/20 11:57 Freq: Status: Active Protocol: Document 05/22/20 16:00 [facility] (Rec: 05/28/20 10:49 [facility] [id number]) Trunk Strength Trunk Manual Muscle Testing Comments poor abdominal strength with forward flexed posture and trunk. PT-OP-T Assessment and Plan Start: 05/22/20 11:57 Freq: Status: Active Protocol: Document 09/03/20 13:35 [facility] (Rec: 09/03/20 13:37 [facility] [id number]) Physical Therapy Assessment Assessment Summary Assessment pt has not been seen since her initial consult on May 22. She would like to cx all visits until she is fully vaccinated from covid 19. She will be Discharged today to a [facility] Physical Therapy Plan Discharge Physical Therapy Discharge Reasons No Longer Attending PT
== END 2020-09-04 08:58 ==
LOC: PHYS 11:46
PROVIDERS: Family Provider Nurse Practitioner Family; PCP Nurse Practitioner Family; Referring Provider Urology; Visit Provider Urology
DX: N39.41 Urge incontinence (principal)
CPT/HCPCS: 97110; 97161

== ENCOUNTER → 2021-11-05 12:11 | Outpatient (CLI) | payer MEDICARE, SELFPAY ==
--- NOTE | 2021-11-05 12:14 | DI.MRI.S_ITS ---
PROCEDURE: MR LUMBAR SPINE WO CON INDICATIONS: Low back pain, unspecified TECHNIQUE: Noncontrast sagittal T1 spin echo and T2 fast echo, sagittal STIR, and T2 fast spin echo through the lumbar spine. In cases with scoliosis, additional coronal T2 fast spin echo may be performed. COMPARISON: [facility], , L-SPINE WITHOUT CONTRAST, 09/16/2017, 13:30. FINDINGS: Image quality: Excellent. Alignment and Curvature: Grade 1 anterior spondylolisthesis noted at L4-5 and L5-S1, similar prior exam. Bone Marrow: Mild edematous Modic type 1 degenerative endplate changes noted along the inferior endplates of L3, L4 and L5. Spinal Cord: Conus medullaris terminates at the L1 level. Visualized cord demonstrates normal signal and size. Paraspinous Soft Tissues: No paravertebral masses. T12-L1: Normal appearance. L1-L2: Normal appearance. L2-L3: Normal appearance. L3-L4: Disc space narrowing circumferential disc bulge and hypertrophic facet joints results in mild central stenosis. Mild bilateral foraminal stenosis L4-L5: Disc space narrowing with circumferential disc bulge and hypertrophic facet joints results in mild central stenosis. Moderate left and mild right foraminal stenosis. L5-S1: Disc space narrowing with circumferential disc bulge and hypertrophic facet joints results in mild central stenosis. Mild bilateral foraminal stenosis IMPRESSION: Multilevel degenerative disc disease and arthropathy results in mild central and moderate left foraminal stenosis at L4-5, similar to the prior exam Approved by: Ray Barnett M.D. on 11/05/2021 at 15:18
== END ==
PROVIDERS: PCP Nurse Practitioner Family; Referring Provider Physical Medicine & Rehabilitation Pain Medicine; Visit Provider Physical Medicine & Rehabilitation Pain Medicine
DX: M51.36 Other intervertebral disc degeneration, lumbar region (principal); M47.816 Spondylosis without myelopathy or radiculopathy, lumbar region; M48.061 Spinal stenosis, lumbar region without neurogenic claudication; M51.37 Other intervertebral disc degeneration, lumbosacral region; M47.817 Spondylosis without myelopathy or radiculopathy, lumbosacral region; M48.07 Spinal stenosis, lumbosacral region; M54.50 Low back pain, unspecified
CPT/HCPCS: 72148

== ENCOUNTER → 2022-04-06 11:59 | Outpatient (CLI) | payer MEDICARE, SELFPAY ==
--- NOTE | 2022-04-06 12:01 | DI.MRI.S_ITS ---
PROCEDURE: MR LUMBAR SPINE WO CON INDICATIONS: Spinal stenosis, lumbar region TECHNIQUE: Noncontrast sagittal T1 spin echo and T2 fast echo, sagittal STIR, and T2 fast spin echo through the lumbar spine. In cases with scoliosis, additional coronal T2 fast spin echo may be performed. COMPARISON: [facility], CT, CT ABDOMEN PELVIS W CON, 05/04/2019, 16:24. [facility], MR, L-SPINE WITHOUT CONTRAST, 09/16/2017, 13:30. [facility], MR, L-SPINE WITHOUT CONTRAST, 09/05/2014, 13:15. [facility], MR, MR LUMBAR SPINE WO CON, 11/05/2021, 12:27. [facility], CR, XR LUMBAR SPINE WITH OBLIQUES PLUS FLEXION EXTENSION, 10/20/2021, 15:33. [facility], CR, XR LUMBAR SPINE 2 OR 3 VIEWS, 03/09/2022, 12:48. [facility], MR, L-SPINE WITHOUT CONTRAST, 10/18/2011, 7:58. FINDINGS: Image quality: This examination is limited by involuntary motion artifact. Alignment and Curvature: There is minimal retrolisthesis seen at L1-L2. Minimal anterolisthesis is seen at L3-L4. Mild grade 1 anterolisthesis is seen at L4-L5 and L5-S1. Associated pars defects are not seen on these images. Bone Marrow: Marrow is of normal overall signal. Scattered foci are seen, which are hyperintense on T1-weighted and T2-weighted imaging, which are most consistent with benign vertebral body hemangiomas. No acute vertebral body compression fractures. Spinal Cord: Conus medullaris terminates at the T12-L1 level. Visualized cord demonstrates normal signal and size. Paraspinous Soft Tissues: No paravertebral masses. T12-L1: No significant abnormality is seen. L1-L2: Mild loss of disc height is seen. Loss of disc signal is seen. No significant neural foraminal or central canal narrowing can be seen. L2-L3: The disc height is well-preserved. Loss of disc signal is seen at this level. Minimal to mild disc bulge is seen at this level. There is mild left-sided and no right-sided neural foraminal narrowing. No central canal narrowing is seen. When comparison is made with the prior images, these findings are similar. L3-L4: Mild loss of disc height is seen. Loss of disc signal is seen. Mglk-lt-[id number] disc bulge is seen, which is eccentric to the left. There is a mild central/left disc extrusion, with mild superior migration of the disc material. At least moderate facet hypertrophy is seen. Fluid is seen within the facet joints themselves. There is moderate left-sided and minimal right-sided neural foraminal narrowing. Mild central canal narrowing is seen. When comparison is made with the prior images, these findings are similar. L4-L5: Moderate loss of disc height is seen. Loss of disc signal is seen. Moderate disc bulge is seen, which is slightly eccentric to the left. There is a mild central disc extrusion. Prominent facet hypertrophy is seen. Fluid is seen within the facet joints themselves. There is [id number] right-sided and moderate left-sided neural foraminal narrowing. Mild central canal narrowing is seen. No significant change from the prior. L5-S1: Moderate loss of disc height is seen. Loss of disc signal is seen. Moderate generalized disc bulge is seen. Prominent facet hypertrophy is seen at this level. There is eihv-[id number] left-sided and moderate right-sided neural foraminal narrowing. Mild central canal narrowing is seen. When comparison is made with the prior images, these findings are similar. IMPRESSION: Multiple levels of lumbar spine degenerative change are seen, which are similar to the prior MRI examination and are worst inferiorly. Dictated by: Bryan Key M.D. on 04/06/2022 at 13:49 Approved by: Bryan Key M.D. on 04/06/2022 at 13:55
== END ==
PROVIDERS: PCP Nurse Practitioner Family; Referring Provider Physical Medicine & Rehabilitation Pain Medicine; Visit Provider Physical Medicine & Rehabilitation Pain Medicine
DX: M48.062 Spinal stenosis, lumbar region with neurogenic claudication (principal); M47.816 Spondylosis without myelopathy or radiculopathy, lumbar region; M47.817 Spondylosis without myelopathy or radiculopathy, lumbosacral region
CPT/HCPCS: 72148

== ENCOUNTER → 2023-07-27 11:48 | Outpatient (CLI) | payer MEDICARE, SELFPAY ==
[2023-07-27 12:47] LABS: Add Manual Diff / Slide Review NO; Basophils Absolute Auto 0 /uL (0-100); Basophils Percent Auto 0.2 % (0-2); Eosinophils Absolute Auto 100 /uL (0-450); Eosinophils Percent Auto 0.7 % (2-4); Hematocrit 27.6 % (36-46); Hemoglobin 9.6 g/dL (12.0-16.0); Lymphocytes Absolute Auto 1100 /uL (1100-4500); Lymphocytes Percent Auto 14.7 % (25-40); Mean Corpuscular HGB Conc 34.8 % (30-36); Mean Corpuscular Hemoglobin 34.4 PG (26-34); Mean Corpuscular Volume 99.1 fL (80-100); Monocytes Absolute Auto 600 /uL (0-900); Monocytes Percent Auto 7.9 % (3-14); Neutrophils Absolute Auto 5900 /uL (1500-7000); Neutrophils Percent Auto 76.5 % (50-75); Platelet Count 242 X10^3/uL (150-400); Red Blood Cell Count 2.78 X10^6/uL (4.0-5.2); Red Cell Distribution Width 15.4 % (11.6-14.8); White Blood Cell Count 7.7 X10^3/uL (4.5-11.0)
[2023-07-27 12:58] LABS: Reticulocyte Count, Percent 2.3 % (1.1-2.6)
[2023-07-27 13:20] LABS: Alanine Aminotransferase 21 IU/L (<35); Albumin 3.8 g/dL (3.5-5.0); Albumin Globulin Ratio 1.5 (1.0-2.8); Alkaline Phosphatase 38 U/L (38-126); Aspartate Aminotransferase 48 IU/L (14-36); Bilirubin Direct 0.1 mg/dL (0.0-0.4); Bilirubin Total 0.6 mg/dL (0.2-1.3); Bilirubin Unconjugated 0.5 mg/dL (0.0-1.1); Globulin 2.5 g/dL (1.7-4.1); HEMOLYSIS < 15 (0-50); Lactate Dehydrogenase 490 U/L (120-246); Total Protein 6.3 g/dL (6.3-8.2)
[2023-07-27 13:21] LABS: HEMOLYSIS < 15 (0-50); Iron 73 ug/dL (37-170)
[2023-07-27 13:35] LABS: Percent Iron Saturation 29 % (15-50); Total Iron Binding Capacity 248 ug/dL (265-497); Transferrin 204 mg/dL (206-381)
[2023-07-28 08:26] LABS: Haptoglobin < 10 mg/dL (41-333)
[2023-07-28 19:41] LABS: Free Kappa Lt Chains, Serum 20.6 mg/L (3.3-19.4); Free Lambda Lt Chains,Serum 18.9 mg/L (5.7-26.3)
[2023-07-29 14:16] LABS: Albumin 3.6 g/dL (2.9-4.4); Alpha-1-Globulin 0.3 g/dL (0.0-0.4); Alpha-2-Globulin 0.6 g/dL (0.4-1.0); Beta-2-Microglobulin 1.8 mg/L (0.6-2.4); Gamma Globulin 0.8 g/dL (0.4-1.8); Globulin Total 2.5 g/dL (2.2-3.9); Glucose-6-Phosphate Dehydrogen 432 (127-427); Immunoglobulin A, Serum 351 mg/dL (64-422); Immunoglobulin G,Serum 703 mg/dL (586-1602); Immunoglobulin M, Serum 38 mg/dL (26-217); Protein, Total 6.1 g/dL (6.0-8.5)
== END ==
LOC: LAB 11:54
PROVIDERS: PCP Nurse Practitioner Family; Referring Provider Internal Medicine; Visit Provider Internal Medicine
DX: D59.9 Acquired hemolytic anemia, unspecified (principal)
CPT/HCPCS: 36415; 80076; 82232; 82248; 82784; 82955; 83010; 83540; 83550; 83615; 83883; 84155; 84165; 85025; 85041; 85045; 86334; 86880

== ENCOUNTER → 2023-08-09 12:09 | Outpatient (CLI) | payer MEDICARE, SELFPAY ==
--- NOTE | 2023-08-09 12:11 | DI.CT.S_ITS ---
PROCEDURE: CT UE RT WO CON INDICATIONS: Rotator cuff Arthropathy,right TECHNIQUE: Noncontrast 1-1.5 mm thick sections acquired from the acromioclavicular joint to the inferior scapula, with coronal and sagittal reformatting. COMPARISON: [facility], CR, XR SHOULDER 2+ VIEWS RIGHT, 05/05/2023, 13:41. [facility], CR, XR SHOULDER 2+ VIEWS LEFT, 07/27/2023, 14:51. FINDINGS: Image quality: Excellent. Bones: [id number] acromioclavicular joint osteoarthritic changes are seen with joint space narrowing, subchondral sclerosis and cyst formation and small downward osteophyte formation depressing the musculotendinous junction of supraspinatus. Moderate to severe glenohumeral joint osteoarthritic changes are seen with significant joint space narrowing, extensive subchondral sclerosis and cyst formation and prominent marginal osteophyte formation. Superior migration of humeral head in relation to glenoid is seen. No acute fracture or dislocation. No suspicious bony lesions. The visualized right ribs are intact. Soft tissues: Superior migration of humeral head with significant loss of subacromial space, of full-thickness rupture of distal supraspinatus cannot be excluded. Sagittal views shows mild to moderate supraspinatus muscle atrophy. No abnormal soft tissue calcifications. Moderate joint effusion and subacromial subdeltoid bursal fluid is seen, no gross calcified loose bodies. IMPRESSION: 1. 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 No acute fracture or dislocation. No suspicious bony lesions. 2. Superior migration of humeral head in relation to glenoid concerning for full-thickness rupture involving distal supraspinatus. Moderate supraspinatus muscle atrophy. 3. No abnormal soft tissue calcifications. Moderate joint effusion and subacromial subdeltoid bursal fluid, no definite calcified intra-articular loose bodies. Dictated by: Baldomero Craig M.D. on 08/09/2023 at 14:17 Approved by: Baldomero Craig M.D. on 08/09/2023 at 14:20
== END ==
LOC: CT 12:10
PROVIDERS: PCP Family Medicine; Referring Provider Orthopaedic Surgery; Visit Provider Orthopaedic Surgery
DX: M19.011 Primary osteoarthritis, right shoulder (principal); M62.511 Muscle wasting and atrophy, not elsewhere classified, right shoulder; M25.411 Effusion, right shoulder
CPT/HCPCS: 73200

== ENCOUNTER → 2024-02-14 11:38 | Outpatient (ROUT) | payer MEDICARE, SELFPAY ==
[2024-02-14 12:17] LABS: Add Manual Diff / Slide Review NO; Basophils Absolute Auto 0 /uL (0-100); Basophils Percent Auto 0.5 % (0-2); Eosinophils Absolute Auto 100 /uL (0-450); Eosinophils Percent Auto 1.7 % (2-4); Hematocrit 33.5 % (36-46); Hemoglobin 11.4 g/dL (12.0-16.0); Lymphocytes Absolute Auto 900 /uL (1100-4500); Lymphocytes Percent Auto 14.6 % (25-40); Mean Corpuscular Hemoglobin 33.9 PG (26-34); Mean Corpuscular Volume 99.7 fL (80-100); Monocytes Absolute Auto 500 /uL (0-900); Neutrophils Absolute Auto 4800 /uL (1500-7000); Neutrophils Percent Auto 75.2 % (50-75); Platelet Count 231 X10^3/uL (150-400); Red Blood Cell Count 3.36 X10^6/uL (4.0-5.2); Red Cell Distribution Width 16.5 % (11.6-14.8); White Blood Cell Count 6.4 X10^3/uL (4.5-11.0)
[2024-02-14 12:59] LABS: HEMOLYSIS < 15 (0-50); Iron 124 ug/dL (37-170)
[2024-02-14 13:14] LABS: Percent Iron Saturation 48 % (15-50); Total Iron Binding Capacity 258 ug/dL (265-497); Transferrin 205 mg/dL (206-381)
[2024-02-14 13:39] LABS: Ferritin 464 ng/mL (11-264)
== END ==
PROVIDERS: PCP Family Medicine; Visit Provider Internal Medicine
DX: D64.9 Anemia, unspecified (principal); D50.8 Other iron deficiency anemias
CPT/HCPCS: 36415; 82728; 83540; 83550; 85025

== ENCOUNTER 2024-04-26 09:10 | Inpatient (IN) | payer MEDICARE, SELFPAY ==
[2024-04-13 12:35] VITALS: BMI 23.2
[2024-04-26] VITALS (30 sets, daily range): BP systolic 69–150; BP diastolic 35–70; PULSE 57–95; RESP 11–18; TEMP 35.9–36.7; O2SAT 84–99; BMI 23.2
--- NOTE | 2024-04-26 | DI.RAD.S_ITS ---
PROCEDURE: XR SHOULDER RT 1V INDICATIONS: REVERSE TOTAL SHOULDER TECHNIQUE: One-view of the shoulder were acquired. COMPARISON: [facility], FAVIAN, SHOULDER MIN 2VW (RT), 05/15/2014, 15:37. FINDINGS: Bones: There are no osseous abnormalities. Acromioclavicular and glenohumeral joints: Glenohumeral arthroplasty changes joint anatomic alignment. Periarticular soft tissue swelling and gas is seen. Mild acromioclavicular degeneration noted. Mild AC subluxation also seen Soft tissues: No soft tissue swelling, calcification or mass. IMPRESSION: : Shoulder prosthesis is anatomically aligned. Dictated by: Ismael Foote M.D. on 04/27/2024 at 8:57 Approved by: Ismael Foote M.D. on 04/27/2024 at 8:58
--- NOTE | 2024-04-26 10:10 | PM.PREOP ---
Pre-operative Note Interval Note History & Physical reviewed/Exam performed by Physician: Yes Changes to H&P: No
[2024-04-26 10:25] LABS: Hematocrit 37.2 % (36-46); Hemoglobin 12.7 g/dL (12.0-16.0); Mean Corpuscular Volume 102.7 fL (80-100); Platelet Count 256 X10^3/uL (150-400); Red Blood Cell Count 3.62 X10^6/uL (4.0-5.2); Red Cell Distribution Width 13.3 % (11.6-14.8); White Blood Cell Count 5.7 X10^3/uL (4.5-11.0)
[2024-04-26] MEDS: LACTATED RINGERS 1,000 ML 42 ML IV ×2 (10:32→12:36)
--- NOTE | 2024-04-26 10:45 | SUR.OPER ---
Beach chair with Andrei/Janell shoulder positioner. Lower body on padded OR bed. Head in foam padded head cradle, secured with straps. Non-operative arm secured <90 degrees abduction. Pillow under knees. Safety belt at thigh. Cloth tape over blanket over lower legs.
[2024-04-26] MEDS: CEFAZOLIN 2 GM/100 ML PREMIX 100 ML IV (12:09)
[2024-04-26] MEDS: BUPIVACAINE 0.25% (PF) 30 ML, EPINEPHrine 0.15 MG INJ (12:35)
--- NOTE | 2024-04-26 15:09 | SUR.PHASEI ---
Leana UTILITY WORKER FORGE to bedside to discuss BP. See new orders for Albumin and CBC.
--- NOTE | 2024-04-26 15:19 | PM.OP.1 ---
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 Symptoms have been present for years, insidious onset. Patient has failed a reasonable attempt at conservative therapy. After extensive discussion in clinic, they wished to go forward with surgery. Risks and benefits were described including the risk of infection, bleeding, damage to internal structures including nerves. We also discussed the risk of failure of surgery and the need for revision surgery as well as the risk of anesthesia. The patient expressed understanding with these risks and wished to go forward with surgery. Surgeon: Lang Mcclure Offbearer: Daren Olguin Anesthesia Type: General Operative Notes Findings: Findings: Osteoarthritis of the glenoid, with severely dysplastic glenoid, and humeral head as well as a defient rotator cuff as noted on preoperative imaging and under direct visualization Closure Type: primary Specimen(s): none sent Prosthetic devices, grafts, tissues, transplants, or devices: Tornier implants Base plate: 25, full wedge Glenosphere: Standard 36 mm Stem: Perform 2 Poly: +0, 10 degree Estimated Blood Loss (mL): 100 Blood products transfused: none Procedure in detail: Patient was seen in the preoperative holding unit. The correct right shoulder was identified and marked with my initials. Again we discussed the risks and benefits of surgery and they wished to go forward with surgery. The patient was brought back to the operating room and placed supine on the operating table. Smooth endotracheal intubation was performed by anesthesia. All prominences were padded and they were placed into the beach chair position. Intravenous antibiotics were given. The right shoulder was then prepped with the standard sterile preparation and draping. A time-out was then performed in my initials were again identified on the correct shoulder. 1 g of IV tranexamic acid was given. A standard deltopectoral incision was made. Skin flaps were made. The cephalic vein was identified and retracted laterally. This was protected throughout the remainder of the case. Sharp dissection was made along the deltoid, subacromial and subcoracoid space to release adhesions. The conjoined tendon was identified and the axillary nerve was palpated and continuous using the tug test. It was protected throughout the remainder of the case. A brown retractor was placed underneath the deltoid muscle and a darach retractor underneath the conjoint tendon. The subscapularis muscle was ntoed to be intact. The anterior circumflex artery and associated veins on the lower border of the subscapularis were identified and tied off using 0-Vicryl. The biceps tendon was identified in the bicipital groove. This was released from its sheath, and taken from its origin on the glenoid and tied into the pectoralis tendon for a solid tenodesis. We then began a subscapularis peel. The subscapularis was tagged with an Ethibond suture. A 360 degree circumferential release of the subscapularis was performed with protection of the axillary nerve. The coracohumeral ligament was released at the base of the coracoid. The shoulder was then dislocated. Osteophytes were removed using combination of rongeur and osteotome. The rotator cuff was noted to be insufficient. An intramedullary guide was used set at version of 20?. Using an oscillating saw a conservative humeral head cut was made. Impaction reamers were reamed up to a size 2 stem with a built-in angle 135?. A neck protector was placed. Attention was then turned to the glenoid. After retracting the humeral head posteriorly a circumferential release was performed of the capsule with protection of the axillary nerve. The labrum was then released starting at the biceps anchor and going around the rim a small amount of triceps was released from the inferior glenoid. A center guide pin was then placed using the guide, followed by Reamer. After adequate cartilage was removed the boss was reamed and the centeral hole was drilled and measured. Graft was then fashioned out of the previous removed humeral head, this was then impacted around the superior posterior portion of the glenoid. The base plate was then implanted and screwed into place. The peripheral screws were then sequentially drilled, measured, and placed. A 36 standard glenosphere was then selected and screwed into place onto the base plate. Turning back to the humerus, the humeral head was delivered and trialed with a 0 concentric. The arm was taken through range of motion and this was felt to be stable. The trial was then removed and a dilute Betadine wash was then performed with 1 L of sterile saline. Before placing the final implant, drill holes were made in the bicipital groove for the subscapularis repair, and sutures were passed through the drill holes. The final stem was then impacted into the humerus. The shoulder was then reduced and again brought through range of motion and was felt to be stable. The subscapularis was then repaired using a modified racking hitch with nice loupes. The skin was closed with 2-0 vicryl and 3-0 Monocryl followed by Aquacel dressing. Patient was awoken from anesthesia and brought back to the postoperative recovery unit without issue. They were placed into a sling. Assisting participation: This operation could not have been safely performed (without compromising the technical results or length of the procedure) without the assistance of a skilled surgical services coordinator. The surgical services coordinator was medically necessary for proper positioning, retraction and manipulation of instruments, proper exposure, graft prep, and manipulation of tissue. Due to the dysplastic nature of the glenoid, extensive time was taken in order to fashion graft out of the humeral head and then impact this around the posterior superior portion of the glenoid. This in essence made the glenoid similar to a revision surgery with the amount of bone loss there was in the time that it took. This ended up Requiring significantly more time and effort. Therefore, modifier 22 is appended to this procedure code to indicate the increased complexity and additional work required to complete the surgery successfully. Complications: none Post-operative Condition: stable Plan for aftercare: Postoperative instructions: Sling to remain on for 6 weeks. No external rotation past neutral for 6 weeks. Okay for the sling to come off for shower. Okay to shower over the Aquacel dressing. If any water gets underneath the dressing, remove the dressing. First postoperative visit in 2 weeks.
[2024-04-26] MEDS: ALBUMIN HUMAN 12.5 GM/250 ML VIAL IV (15:27)
[2024-04-26 15:35] LABS: Hematocrit 29.4 % (36-46); Hemoglobin 10.1 g/dL (12.0-16.0)
--- NOTE | 2024-04-26 16:19 | SUR.PHASEI ---
Pt transferred to room 217 by this RN with 1 white canvas bag, 1 red bag and 1 belongings bag including pt phone and wallet. Pt awake, alert, tolerating apple juice, continues to deny pain or dizziness.
--- NOTE | 2024-04-26 16:49 | PM.CN ---
History of Present Illness Consult details Date Patient Seen: 04/26/24 Time Patient Seen: 16:49 Chief complaint: Right Total Shoulder Arthroplasty - Reverse Requesting provider: Lang Mcclure Narrative: Patient was seen in consultation at the request of Orthopedics. She was status post a right reverse total shoulder arthroplasty. The procedure was uncomplicated, she did suffer formed some transient postoperative hypotension which improved with IV fluids. She has a complex past medical history including TAVR, CAD with PCI, PAF on chronic Eliquis which she held for 2 days before her procedure. She also has history of GI bleed as well as moderate mitral regurgitation. She had a thalamic stroke in February of 2023. She was seen in the luis after being transferred up from the PACU. She was somewhat somnolent but is doing well. She was pain in the right breast which is positional increases with palpation and is likely attributed to soft tissue manipulation during her surgery. She denies any central left-sided chest pain. She was on 2 L of oxygen and denies any dyspnea. She also denies any nausea or abdominal pain. Her shoulder pain is reasonably well controlled. She had been doing well up to the procedure and has no recent concerns or new symptoms. Meds Home Medications and Allergies Home Medications Medication Instructions Recorded Confirmed Type cyclosporine 0.05 % eye drops in a 0.05 % OPHTH BID ##0 04/17/13 04/13/24 History dropperette (Restasis) cholecalciferol (vitamin D3) 25 2,000 iu PO QAM ##0 09/01/16 04/13/24 History mcg (1,000 unit) chewable tablet (Vitamin D3) valacyclovir 500 mg tablet 500 mg PO DAILY 09/25/18 04/26/24 History estradiol 1 mg tablet 1 mg PO DAILY 05/04/19 04/26/24 History isosorbide mononitrate 30 mg 30 mg PO DAILY 11/30/22 04/26/24 History tablet,extended release 24 hr acetaminophen 500 mg tablet 500 mg PO TID pain #0 tabs 03/06/24 04/26/24 History amiodarone 100 mg tablet 100 mg PO DAILY 03/06/24 04/26/24 History apixaban 2.5 mg tablet (Eliquis) 2.5 mg PO BID 03/06/24 04/26/24 History celecoxib 100 mg capsule (Celebrex) 100 mg PO BID 03/06/24 04/26/24 History empagliflozin 10 mg tablet 10 mg PO DAILY 03/06/24 04/13/24 History (Jardiance) fluticasone propionate 50 2 spray intranasal QDAY PRN 03/06/24 04/13/24 History mcg/actuation nasal allergies spray,suspension furosemide 20 mg tablet 40 mg PO DAILY 03/06/24 04/26/24 History gabapentin 300 mg capsule 300 mg PO BID 03/06/24 04/26/24 History losartan 25 mg tablet 50 mg PO QPM 03/06/24 04/13/24 History melatonin 5 mg capsule 5 mg PO BEDTIME 03/06/24 04/26/24 History omeprazole 20 mg capsule,delayed 20 mg PO DAILY 03/06/24 04/26/24 History release ropinirole 0.25 mg tablet 0.25 mg PO BEDTIME 03/06/24 04/26/24 History sodium chloride 1 g PO BID 03/06/24 04/13/24 History vit A 7,160 unit-vit C 113 mg-vit 2 tab PO BID 03/06/24 04/13/24 History E-zinc cf-rsmozg-fddiad 1 mg tablet ([facility]) Generic CPAP #1 ea 03/13/24 04/26/24 Rx magnesium oxide 400 mg (241.3 mg 400 mg PO DAILY 04/13/24 04/13/24 History magnesium) tablet metoprolol tartrate 25 mg tablet 12.5 mg PO BID 04/16/24 04/26/24 History Jardiance 10 mg PO QAM 04/26/24 04/26/24 History Allergies Allergy/AdvReac Type Severity Reaction Status Date / Time metronidazole [METRONIDAZOLE] Allergy Intermediate NUMBNESS Verified 04/13/24 13:12 IN FINGERS adhesive Allergy Verified 04/26/24 09:41 diclofenac Allergy Verified 04/26/24 09:41 lactose Allergy Verified 04/26/24 09:41 levofloxacin Allergy Verified 04/26/24 09:41 metolazone Allergy Verified 04/26/24 09:41 naproxen Allergy Verified 04/26/24 09:41 PNEMOMOCOCCAL VACCINE AdvReac Mild EDEMA & Uncoded 04/13/24 13:12 ERYTHEMA Review of Systems Review of Systems Narrative: All else reviewed and otherwise unremarkable except as noted in the history and physical. Exam Vital Signs (past 8 hours): - 04/26/24 10:09 04/26/24 14:12 04/26/24 14:16 Temperature 98.1 F 97.3 F L Pulse Rate 58 L 64 63 Respiratory Rate 16 13 12 Blood Pressure 150/70 H 120/58 L 120/58 L Pulse Oximetry 98 99 97 Oxygen Delivery Method Room Air Nasal Cannula Nasal Cannula Oxygen Flow Rate 5 5 04/26/24 14:22 04/26/24 14:24 04/26/24 14:27 Temperature Pulse Rate 65 60 58 L Respiratory Rate 14 11 L 13 Blood Pressure 69/41 L 73/41 L 73/35 L Pulse Oximetry 96 96 98 Oxygen Delivery Method Nasal Cannula Nasal Cannula Nasal Cannula Oxygen Flow Rate 4 4 4 04/26/24 14:30 04/26/24 14:35 04/26/24 14:40 Temperature 97.0 F L Pulse Rate 57 L 59 L 59 L Respiratory Rate 16 14 14 Blood Pressure 106/49 L 82/41 L 79/38 L Pulse Oximetry 97 98 97 Oxygen Delivery Method Nasal Cannula Nasal Cannula Nasal Cannula Oxygen Flow Rate 2 2 2 04/26/24 14:45 04/26/24 14:50 04/26/24 14:55 Temperature Pulse Rate 62 61 62 Respiratory Rate 12 14 14 Blood Pressure 83/46 L 84/48 L 92/58 L Pulse Oximetry 97 98 97 Oxygen Delivery Method Nasal Cannula Nasal Cannula Nasal Cannula Oxygen Flow Rate 2 2 2 04/26/24 15:00 04/26/24 15:08 04/26/24 15:11 Temperature Pulse Rate 63 61 60 Respiratory Rate 14 15 13 Blood Pressure 94/48 L 87/45 L 94/45 L Pulse Oximetry 98 96 96 Oxygen Delivery Method Nasal Cannula Nasal Cannula Nasal Cannula Oxygen Flow Rate 2 2 2 04/26/24 15:16 04/26/24 15:21 04/26/24 15:26 Temperature Pulse Rate 61 62 62 Respiratory Rate 12 13 12 Blood Pressure 92/46 L 92/47 L 94/49 L Pulse Oximetry 96 96 97 Oxygen Delivery Method Nasal Cannula Nasal Cannula Nasal Cannula Oxygen Flow Rate 2 2 2 04/26/24 15:31 04/26/24 15:36 04/26/24 15:41 Temperature 97.7 F Pulse Rate 62 63 63 Respiratory Rate 12 15 13 Blood Pressure 108/53 L 111/52 L 115/59 L Pulse Oximetry 98 98 98 Oxygen Delivery Method Nasal Cannula Nasal Cannula Nasal Cannula Oxygen Flow Rate 2 2 2 04/26/24 15:56 04/26/24 16:36 04/26/24 16:43 Temperature 97.8 F 96.6 F L Pulse Rate 62 66 Respiratory Rate 14 13 Blood Pressure 118/64 121/54 L Pulse Oximetry 98 95 Oxygen Delivery Method Nasal Cannula Nasal Cannula Oxygen Flow Rate 2 2 Oxygen Delivery Method Nasal Cannula Oxygen Flow Rate 2 Narrative Exam Narrative: NAD, alert and oriented, fluent speech, calm. Somewhat somnolent, [place]ian accent. Normocephalic skull, EOMI, anicteric sclera, symmetric pupils. Oropharynx unremarkable, no droop. Neck supple, midline trachea, no adenopathy. Lungs clear, normal rate and effort. Heart regular, no murmur gallop or rub. Abdomen is soft, non distended and non tender. Extremities are free of edema. Skin is free of rash or lesions. Joints are not swollen or deformed. Judgment appears to be normal. Right shoulder is in an immobilizer, wound is dressed and there was no evidence of bleeding. Objective Labs 04/26/24 15:23 Labs: Laboratory Results - last 24 hr 04/26/24 04/26/24 10:00 15:23 WBC 5.7 RBC 3.62 L Hgb 12.7 10.1 L Hct 37.2 29.4 L MCV 102.7 H MCH 35.0 H MCHC 34.0 RDW 13.3 Plt Count 256 PFSH Medical History CVA (cerebral vascular accident) (02/2023) Anemia Gastrointestinal hemorrhage associated with gastric ulcer H/O coronary angiogram (08/25/22) CAD (coronary artery disease) Paroxysmal A-fib (2023) Fall Restless leg syndrome Shoulder pain Chronic back pain Cervical spine disease (~2009) Vertigo Cataracts, bilateral (~2012) Painful menstrual periods Herpes (~1969) SHAGGY (stress urinary incontinence, female) (~10/17/18) Vaginal prolapse (~10/17/18) Insomnia disorder Hypertension (01/22/11) Obstructive sleep apnea of adult Asthma Diplopia Other depressive disorder (01/22/11) Generalized anxiety disorder Mixed hyperlipidemia (01/22/11) Surgical History S/p TAVR (transcatheter aortic valve replacement), 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) H/O heart artery stent (2022) H/O hernia repair Anesthesia History of cholecystectomy History of hysterectomy Family History Father History of heart disease Brother Mental health problem Sister Breast cancer Social History household members: none Tobacco & Substance Use Smoking Status: Never smoker alcohol intake: former Assessment & Plan Assessment & Plan narrative: 88-year-old female status post a right reverse total shoulder arthroplasty, with limited hypotension postoperative which is now resolved. 1. CAD, present on admission and stable. 2. PAF on chronic Eliquis, present on admission and stable. 3. History of TAVR, present on admission and stable. 4. Remote history of GI bleed, present on admission and not active. 5. Chronic left bundle branch block, present on admission and stable. 6. Remote thalamic CVA, present on admission and stable. 7. Chronic hyponatremia, present on admission and stable. 8. History of chronic anemia, present on admission and stable. 9. Iron-deficiency anemia, present on admission and stable. PLAN: -telemetry -wean O2 as able -serial hemoglobins to monitor for worsening anemia. -resume Eliquis postoperatively. -resume oral chronic medications as soon as possible. Full code. Time-Based Coding :: 30 min spent with patient and on the chart (including review of chart, obtaining history, exam, reviewing outside data, placing orders, documenting exam and treatment plan, and counseling patient) on 04/26.
[2024-04-26] MEDS: ACETAMINOPHEN 325 MG TABLET 650 MG PO ×2 (17:50→23:20)
--- NOTE | 2024-04-26 20:34 | EKG_ITS ---
[address] [address] Test Date: 2024-04-26 Pat Name: Maria Eugenia Yuen Department: Room: 217 Gender: Female [employer] Access Developer: JAIRO : 1935 Requested By: Order Number: [id number] Reading MD: Ismael Jamil MD Measurements Intervals [place] Rate: 93 P: 41 NH: 226 QRS: -33 QRSD: 134 T: 63 QT: 396 QTc: 492 Interpretive Statements Sinus rhythm with 1st degree AV block Left axis deviation Left ventricular hypertrophy with QRS widening and repolarization abnormality ( R in aVL , Prim product ) Possible Lateral infarct , age undetermined Inferior infarct , age undetermined NO PRIOR TRACING Electronically Signed On 04-27-2024 7:32:08 PDT by Ismael Jamil MD
[2024-04-26 20:37] LABS: Base Excess ABG -2.4 mmol/L (-2-3); HCO3 ABG 22 mmol/L (23-27); Oxygen Saturation ABG 88 % (95-100); PCO2 ABG 33.6 mmHg (35-45); PO2 ABG 53 mmHg (80-100); TCO2 ABG 21 mmol/L (23-27); pH ABG 7.42 (7.35-7.45)
[2024-04-26 20:39] LABS: Chloride 94 mmol/L (98-107); HEMOLYSIS < 15 (0-50); Potassium 4.3 mmol/L (3.4-5.1); Sodium 128 mmol/L (137-145)
[2024-04-26 20:51] LABS: BUN Creatinine Ratio 31.5 (6-22); Blood Urea Nitrogen 23 mg/dL (7-17); Calcium 8.4 mg/dL (8.4-10.2); Carbon Dioxide 24 mmol/L (22-32); Estimated Glomerular Filt Rate > 60 mL/min (>60); Glucose 190 mg/dL (80-110)
[2024-04-26 20:57] LABS: Add Manual Diff / Slide Review NO; Basophils Absolute Auto 0 /uL (0-100); Basophils Percent Auto 0.2 % (0-2); Eosinophils Absolute Auto 0 /uL (0-450); Hematocrit 29.6 % (36-46); Hemoglobin 9.9 g/dL (12.0-16.0); Lymphocytes Absolute Auto 500 /uL (1100-4500); Lymphocytes Percent Auto 3.6 % (25-40); Mean Corpuscular HGB Conc 33.2 % (30-36); Mean Corpuscular Hemoglobin 34.5 PG (26-34); Mean Corpuscular Volume 103.8 fL (80-100); Monocytes Absolute Auto 700 /uL (0-900); Monocytes Percent Auto 5.9 % (3-14); Neutrophils Absolute Auto 11200 /uL (1500-7000); Neutrophils Percent Auto 90.3 % (50-75); Platelet Count 200 X10^3/uL (150-400); Red Blood Cell Count 2.86 X10^6/uL (4.0-5.2); Red Cell Distribution Width 13.5 % (11.6-14.8); White Blood Cell Count 12.5 X10^3/uL (4.5-11.0)
[2024-04-26 20:59] LABS: Magnesium 1.7 mg/dL (1.6-2.3)
[2024-04-26 21:08] LABS: NT-proBNP (BNP-Adult 18+) 854 pg/mL (<450)
--- NOTE | 2024-04-26 21:38 | DI.RAD.S_ITS ---
PROCEDURE: XR CHEST 1V INDICATIONS: hypoxemia TECHNIQUE: One view of the chest was acquired. COMPARISON: None. FINDINGS: Surgical changes and devices: Partially visualized right shoulder arthroplasty. Aortic valvuloplasty. Lungs and pleura: Lungs are clear. Elevated right hemidiaphragm. No pleural effusions or pneumothorax. Mediastinum: Mediastinal contours appear normal. Heart size is prominent. Bones and chest wall: Subcutaneous emphysema over the right chest wall and shoulder, consistent with postsurgical changes. No suspicious bony lesions. Overlying soft tissues appear unremarkable. IMPRESSION: Postsurgical changes from right shoulder arthroplasty are partially visualized. Elevation the right hemidiaphragm. The lungs are otherwise clear. Heart is prominent. Dictated by: Rojelio Grullon M.D. on 04/26/2024 at 23:47 Approved by: Rojelio Grullon M.D. on 04/26/2024 at 23:48
[2024-04-26] MEDS: SODIUM CHLORIDE 1,000 MG TABLET 1000 MG PO (21:50)
[2024-04-26] MEDS: MELATONIN 3 MG TABLET 6 MG PO (21:50)
[2024-04-26] MEDS: SENNOSIDES 8.6 MG TABLET 17.2 MG PO (21:50)
[2024-04-26] MEDS: DOCUSATE 100 MG CAPSULE PO (21:50)
[2024-04-26] MEDS: GABAPENTIN 300 MG CAPSULE PO (21:50)
[2024-04-26] MEDS: ROPINIROLE 0.25 MG TABLET PO (21:50)
[2024-04-27] VITALS (12 sets, daily range): BP systolic 98–127; BP diastolic 45–56; PULSE 59–95; RESP 14–21; TEMP 35.9–36.5; O2SAT 92–99
[2024-04-27 05:56] LABS: Hematocrit 26.8 % (36-46); Hemoglobin 9.2 g/dL (12.0-16.0)
[2024-04-27] MEDS: PANTOPRAZOLE DR 20 MG TABLET PO (05:56)
[2024-04-27] MEDS: ACETAMINOPHEN 325 MG TABLET 650 MG PO ×4 (06:38→20:31)
--- NOTE | 2024-04-27 09:27 | PM.PN.1 ---
Subjective Subjective Interval history: Summary: Seen in consult for management of multiple medical problems after a right shoulder replacement. S: Said to be hypoxic overnight, she denies any issues overnight. She was off oxygen this morning, breathing comfortably and denies any chest pain. Her right shoulder pain is also improved. Exam Vital Signs (past 8 hours): - 04/27/24 04:00 04/27/24 04:00 04/27/24 06:29 Temperature 97.2 F L Pulse Rate 81 86 Respiratory Rate 14 18 Blood Pressure 114/54 L Pulse Oximetry 99 98 94 Oxygen Delivery Method Oxygen Flow Rate 60 50 Fraction of Inspired Oxygen 55 55 04/27/24 07:12 04/27/24 08:03 04/27/24 08:05 Temperature 97.6 F Pulse Rate 70 67 Respiratory Rate 18 21 Blood Pressure 127/51 L Pulse Oximetry 95 99 98 Oxygen Delivery Method Oxygen Flow Rate 30 30 Fraction of Inspired Oxygen 50 50 04/27/24 08:05 Temperature Pulse Rate Respiratory Rate Blood Pressure Pulse Oximetry 97 Oxygen Delivery Method Room Air Oxygen Flow Rate Fraction of Inspired Oxygen Fraction of Inspired Oxygen 50 Oxygen Delivery Method Room Air Oxygen Flow Rate 30 Narrative Exam Narrative: NAD, alert and oriented. Fluent speech. Lungs are clear, normal rate and effort. Heart is regular, no murmur gallop or rub. Abdomen is soft, non distended. Extremities are notable for bilateral pedal edema, this is chronic. Objective Imaging Chest x-ray: Radiologist's impression: 04/26 (21:38):Postsurgical changes from right shoulder arthroplasty are partially visualized. Elevation the right hemidiaphragm. The lungs are otherwise clear. Heart is prominent. Labs 04/27/24 04:10 04/26/24 20:15 Labs: Laboratory Results - last 24 hr 04/26/24 04/26/24 04/26/24 10:00 15:23 20:15 WBC 5.7 12.5 H D RBC 3.62 L 2.86 L Hgb 12.7 10.1 L 9.9 L Hct 37.2 29.4 L 29.6 L MCV 102.7 H 103.8 H MCH 35.0 H 34.5 H MCHC 34.0 33.2 RDW 13.3 13.5 Plt Count 256 200 Neut % (Auto) 90.3 H Lymph % (Auto) 3.6 L [place] % (Auto) 5.9 Eos % (Auto) 0.0 L Baso % (Auto) 0.2 Neut # (Auto) 71253 H Lymph # (Auto) 500 L [place] # (Auto) 700 Eos # (Auto) 0 Baso # (Auto) 0 ABG pH ABG pCO2 ABG pO2 ABG HCO3 ABG Total CO2 ABG O2 Saturation ABG Base Excess Sodium 128 L Potassium 4.3 Chloride 94 L Carbon Dioxide 24 BUN 23 H Creatinine 0.73 Estimated GFR > 60 BUN/Creatinine Ratio 31.5 H Glucose 190 H Calcium 8.4 Magnesium 1.7 NT-Pro-B Natriuret Pep 854 H 04/26/24 04/27/24 20:19 04:10 WBC RBC Hgb 9.2 L Hct 26.8 L MCV MCH MCHC RDW Plt Count Neut % (Auto) Lymph % (Auto) [place] % (Auto) Eos % (Auto) Baso % (Auto) Neut # (Auto) Lymph # (Auto) [place] # (Auto) Eos # (Auto) Baso # (Auto) ABG pH 7.42 ABG pCO2 33.6 L ABG pO2 53 L ABG HCO3 22 L ABG Total CO2 21 L ABG O2 Saturation 88 L ABG Base Excess -2.4 L Sodium Potassium Chloride Carbon Dioxide BUN Creatinine Estimated GFR BUN/Creatinine Ratio Glucose Calcium Magnesium NT-Pro-B Natriuret Pep [facility] Medical History CVA (cerebral vascular accident) (02/2023) Anemia Gastrointestinal hemorrhage associated with gastric ulcer H/O coronary angiogram (08/25/22) CAD (coronary artery disease) Paroxysmal A-fib (2023) Fall Restless leg syndrome Shoulder pain Chronic back pain Cervical spine disease (~2009) Vertigo Cataracts, bilateral (~2012) Painful menstrual periods Herpes (~1969) SHAGGY (stress urinary incontinence, female) (~10/17/18) Vaginal prolapse (~10/17/18) Insomnia disorder Hypertension (01/22/11) Obstructive sleep apnea of adult Asthma Diplopia Other depressive disorder (01/22/11) Generalized anxiety disorder Mixed hyperlipidemia (01/22/11) Surgical History S/p TAVR (transcatheter aortic valve replacement), 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 CAD, present on admission and stable. 2. PAF on chronic Eliquis, present on admission and stable. 3. History of TAVR, present on admission and stable. 4. Remote history of GI bleed, present on admission and not active. 5. Chronic left bundle branch block, present on admission and stable. 6. Remote thalamic CVA, present on admission and stable. 7. Chronic hyponatremia, present on admission and stable. 8. History of chronic anemia, present on admission and stable. 9. Iron-deficiency anemia, present on admission and stable. Said to be hypoxic overnight, is off oxygen and breathing fine this morning. PLAN: -telemetry, continue -off O2 -serial hemoglobins to monitor for worsening anemia. -resume Eliquis postoperatively. Will dw surgery. -resume oral chronic medications as soon as possible. Full code. MELISSA: 04/28. Assessment & Plan Time-Based Coding :: [TOTAL MINUTES] spent with patient and on the chart (including review of chart, obtaining history, exam, reviewing outside data, placing orders, documenting exam and treatment plan, and counseling patient) on [DATE]. Quality VTE Deep Vein Thrombosis/Pulmonary Embolism Present on Admission: No
--- NOTE | 2024-04-27 09:30 | PT.IIE ---
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) Medical History (Last Reviewed 04/26/24 @ 16:53 by Mykel Natarajan MD) Anemia Asthma CAD (coronary artery disease) Cataracts, bilateral (~2012) Cervical spine disease (~2009) Chronic back pain CVA (cerebral vascular accident) (02/2023) Diplopia Fall Gastrointestinal hemorrhage associated with gastric ulcer Generalized anxiety disorder H/O coronary angiogram (08/25/22) Herpes (~1969) Hypertension (01/22/11) Insomnia disorder Mixed hyperlipidemia (01/22/11) Obstructive sleep apnea of adult Other depressive disorder (01/22/11) Painful menstrual periods Paroxysmal A-fib (2023) Restless leg syndrome Shoulder pain SHAGGY (stress urinary incontinence, female) (~10/17/18) Vaginal prolapse (~10/17/18) Vertigo Physical Therapy Inpatient Evaluation/Re-Eval M1 PT/OT-IP Prior Functional Status Start: 04/27/24 12:41 Freq: NEEDED Status: Active Protocol: Document 04/27/24 09:30 AB (Rec: 04/27/24 13:02 AB [id number]) Medical Review Prior Functional Status Medical History Reviewed Yes Communication able to make needs known Mobility and Gait pt stated that she was somewhat independent with mobility: staff at [facility] assists her as needed: assists pt with bed mobility; pt stated that she is able to walk with her 4WW in her apartment by herself and use the toilet but asks for assistance if she needs to; only ambulated in her apartment and uses a manual w/ c for going outside her apartment Prior Functional Level (Other details) pt has been getting PT at [facility] Social History Household Members none Living Arrangements Assisted Living Number of Stairs To Enter/Railing? pt lives on [facility] [place] lower level with access to an elevator Home Environment Standard Height Toilet,Walk in Shower Home Equipment Four Wheel Walker,Hand Held Shower Additional Social History Comment pt has an adjustable bed M2 PT-IP Current Condition Start: 04/27/24 12:41 Freq: NEEDED Status: Active Protocol: Document 04/27/24 09:30 AB (Rec: 04/27/24 13:02 [id number]) Physical Therapy Current Condition Current Condition Evaluation Date 04/27/24 Treatment Diagnosis s/p R TSA reverse; difficulty in walking Onset Date 04/26/24 M3 PT-IP Subjective Start: 04/27/24 12:41 Freq: NEEDED Status: Active Protocol: Document 04/27/24 09:30 AB (Rec: 04/27/24 13:02 AB [id number]) Subjective Physical Therapy Visit Type Type Initial Evaluation Visit Start Time 09:30 Visit Stop Time 11:25 Notes pt seen for split visits: 930 am to 950 am and 1020 to 1125 am Number of FISH CLEANER MACHINE TENDER Visits 0 Therapy Pain Assessment Pain When Pain Assessed At Rest Pain Present Pain Present Pain Reported Location Right Shoulder Intensity 5 Scale Used Numeric (0 - 10) Pain Management Techniques Modification of Treatment,Re- positioning,Timing of Activity with Medications M4 PT-IP Mobility and Gait Start: 04/27/24 12:41 Freq: NEEDED Status: Active Protocol: Document 04/27/24 09:30 AB (Rec: 04/27/24 13:02 [id number]) PT-Bed Mobility Assessment Supine to Sit Supine to Sit Maximum Assistance,2 Person Assistance,Head of Bed Elevated,Bedrails Scooting Scooting to Edge of Bed Dependent PT-Transfer Assessment Sit to and From Stand Sit to and from Stand Maximum Assistance,2 Person Assistance,Use of Upper Extremities Equipment Transfer Assistive Device Gait Belt,Stuart Walker Orthotic/Prosthetic Devices or Brace: Yes Transfers Transfer Destination Chair,Bedside Commode Transfer Technique Stand Step Pivot Transfer Ability Level of Assist Maximum Assistance,1 Person Assistance,2 Person Assistance ,Use of Upper Extremities Comments Mobility Comments pt supine in bed and initially agreed to do PT. obtained PLOF and home setup. when pt was able to mobilize, stated that she wants her pain medication first. nurse aware . Left pt with nurse. checked back on pt and agreed to do PT. pt directs her own care and needs repeated cues and explanations during session. educated pt regarding R shoulder precautions and elbow/hand/wrist exercises. post-op handout provided. pt completed supine to sit max A x 2 and max cues. HOB elevated. total A for scooting to EOB. initial max A for sitting balance on EOB but mod A for positioning. pt stated that she needs the purewick back on. informed pt PT can assist her to use the commode and pt agreed. sit to stand from EOB max A x 2 and max cues using hemiwalker for support. presents with stooped posture. cued for to be upright but unable. step transfer to commod max A x 2 and max cues using hemiwalker. NAC assisted pt with hygiene care and brief change. sit to stand from the bedside commode max A and max cues using hemiwalker and step transfer to chair using hemiwalker max A x 1-2 and max cues. adjusted sling for pt. positioned pt on the chair. call light and table placed within reach. Left pt with NAC. Gait Assessment Comments Gait Comments unable at this time but able to take a few steps during transfers using hemiwalker PT-Balance Assessment Sitting Balance and Reactions Static Sitting Balance Ability Fair Dynamic Sitting Balance Ability Poor Standing Balance and Reactions Static Standing Balance Ability Poor Dynamic Standing Balance Ability Poor Device Used hemiwalker M5 PT-IP Objective Assessments Start: 04/27/24 12:41 Freq: NEEDED Status: Active Protocol: Document 04/27/24 09:30 AB (Rec: 04/27/24 13:02 [id number]) Orientation Orientation/Cognition Level of Alertness Alert Orientation Name,Place,Situation Language Function Ability Hard of Hearing Safety Awareness Decreased Safety Awareness Memory Description Short Term Impaired Gross Range of Motion Lower Extremity ROM Assessment Within Functional Limits Strength Lower Extremity Strength Assessment Left Impaired Hip 3+/5 Knee 3+/5 Sensation Assessment Sensation Gross Sensation WNL Muscle Tone Muscle Tone WNL Yes M6 PT-IP Treatment Start: 04/27/24 12:41 Freq: NEEDED Status: Active Protocol: Document 04/27/24 09:30 AB (Rec: 04/27/24 13:02 AB [id number]) Physical Therapy Treatment Exercises Exercises Elbow Flexion/Extension,Wrist ROM,Hand ROM Education Education Provided Precautions,Weight Bearing Status,Post-Op Packet,Safety M7 PT-IP Assessment and Plan Start: 04/27/24 12:41 Freq: NEEDED Status: Active Protocol: Document 04/27/24 09:30 AB (Rec: 04/27/24 13:02 AB [id number]) PT Summary Assessment and Plan Potential Rehabilitation Potential Fair Status of Condition at Evaluation Evolving Summary Impairments Pain,ROM,Strength,Balance, Coordination,Sensation,Tone, Cognition,Bed Mobility, Transfers,Gait,Activity Tolerance Assessment Summary pt is an 88 y/o F s/p R TSA reverse POD 1. pt is NWB on RUE and has shoulder precautions. pt requiring max A x 2 for mobility and was able to transfer using hemiwalker max A x 1-2 and max cues. Recommending use of mechanical lift with nursing staff at this time. Pt will require SNF rehab to improve overall strength and function. Goals Bed Mobility Goal Minimal Assistance Transfer Goal Minimal Assistance Gait Goal Minimal Assistance,Stuart Walker Gait Distance 25 Other Goals improve bed mobility, transfers and ambulation using hemiwalker/LRAD 50 ft SBA Days to Meet Goals 10 Frequency of Treatment Frequency Of Treatment Twice a Day Treatment Plan Physical Therapy Treatment Plan Bed Mobility Training,Transfer Training,Gait Training, Therapeutic Exercise,Balance Retraining,Post Op Education, Discharge Planning,Hot or Cold Pack,Neuromuscular Re-ed, Coordination Retraining,Manual Therapy Precautions Shoulder Precautions Sling,PROM,Internal Rotation to Body,No External Rotation, No Abduction,Forward Flexion to 90 degrees,Pendulums Weight Bearing Status Weight Bearing Status Non-Weight Bearing Recommendations To Nursing Amount of Assist Needed Mechanical Lift Discharge Recommendations PT Discharge Recommendations SNF Rehab Transportation Needs at Discharge Wheelchair/Cabulance
[2024-04-27] MEDS: MAGNESIUM OXIDE 400 MG TABLET PO (09:48)
[2024-04-27] MEDS: estradioL 1 MG TABLET PO (09:49)
[2024-04-27] MEDS: SODIUM CHLORIDE 1,000 MG TABLET 1000 MG PO ×2 (09:49→20:29)
[2024-04-27] MEDS: CHOLECALCIFEROL (VITAMIN D3) 1,000 UNIT TABLET 2000 UNIT PO (09:49)
[2024-04-27] MEDS: DOCUSATE 100 MG CAPSULE PO (09:49)
[2024-04-27] MEDS: valACYclovir 500 MG TABLET PO (09:49)
[2024-04-27] MEDS: FUROSEMIDE 20 MG TABLET 40 MG PO (09:51)
[2024-04-27] MEDS: METOPROLOL IR 25 MG TABLET 12.5 MG PO (09:51)
[2024-04-27] MEDS: APIXABAN 5 MG TABLET 2.5 MG PO ×2 (09:51→20:27)
[2024-04-27] MEDS: CELECOXIB 100 MG CAPSULE PO ×2 (09:51→20:28)
[2024-04-27] MEDS: GABAPENTIN 300 MG CAPSULE PO ×2 (09:51→20:29)
[2024-04-27] MEDS: AMIODARONE 200 MG TABLET 100 MG PO (09:51)
[2024-04-27] MEDS: ISOSORBIDE MONONITRATE ER 30 MG TABLET PO (09:52)
--- NOTE | 2024-04-27 12:25 | CM.DANOTE ---
Addendum entered by TAYLOR Yancey 04/27/24 14:32: DCP sent clinical packet for review to [facility] (ph#[phone], fax#[phone]). Pending acceptance. SARAH Cabrera Original Note: DCP Assessment Note: Pt is a 88yo female, resident of [place], is admitted for a R TSA, reversal. Pt lives at [facility]. Pt's Primary Care Provider is Dr. Marly Castillo and insurance is Medicare and AARP. Reviewed chart and team rounds for pt's medical status and initial discharge needs. DCP met w/patient at bedside; introduced self and role. Patient was found in chair, alert and oriented, cooperative with assessment. Pt confirmed living situation and good support in . Pt expressed preference in [facility] due to her previous admission there, she verbalized understanding of the 3-midnight requirement for Medicare benefit. Plan: Pending PT/OT recommendations, anticipating discharge to SNF Rehab. CM team will follow closely for coordination of discharge plans. SARAH Cabrera Discharge Planning/Care Management CM Discharge Assessment Start: 04/27/24 12:22 Freq: Status: Active Protocol: Document 04/27/24 12:22 MW (Rec: 04/27/24 12:24 MW [id number]) Discharge Planning Assessment Assigned Senior Engineering Associate TAYLOR Rodas DPOA/Assigned Designee Name Genet Marcos, Friend Contact Information [phone] Advance Directives? Yes Advance Directives on File No History Provided By Patient,Medical Record Expected Length of Stay 3 Has Patient been admitted in last 30 No days? Prior Living Arrangements Assisted Living Household Members none Type of transporation used prior to Relies on Others admit Facility Name Admitted From: [facility] Willing to Return to Facility? Yes Independent with ADL's Yes Is patient alert and oriented? Yes Caregiver for Another No DME Already Rented / Owned FWW / Walker Patient/Family Preference [facility] Facility Comment Patient preference for [facility] in [place], has a hx of admission there in 09/2023. Discharge Plan [facility] Facility Referrals Initiated None needed,[facility] If patient plan is SNF: Has PASSR been Yes completed? Medicare Choice List Provided Yes Medicare choice list reviewed on patient electronic tablet with SNF/HH Preference [facility] Contact Name/Phone Leslie - #[phone] Has Agency SNF been contacted Yes Whiteboard Updated in Patient Room with Yes name and ext. # of Senior Engineering Associate Comment [phone] Review Status In Process Please Provide Date Initial DC 04/27/24 Assessment Was Performed Next Review Type Continued Stay Review
--- NOTE | 2024-04-27 13:22 | DI.ECHO.S_ITS ---
[facility]+ [facility] : : [id number] : [place] : : [id number] : : Phone: [phone] Echocardiogram Report + + :Name: JEANNETTE OLSEN Study Date: 04/27/2024 Height: 62 in : :[facility] ReadingLocation: Weight: 127 lb : : Gender: Female BSA: 1.6 m2 : :: 1935 Age: 88 yrs BP: 105/45 mmHg: :Reason For Study: HYPOTENSION : :Ordering Physician: SUSIE, : :SUSI Flores Performed By: Kristen Young : :Referring: SUSI RICHARDS : + + Interpretation Summary The left ventricle is normal in size. The ejection fraction is estimated to be 60-65%. There is a bioprosthetic aortic valve. There is mild to moderate perivalvular regurgitation around the prosthetic aortic valve. The peak aortic velocity is 2.4 m/sec. Procedure: The study quality was technically limited. The study quality was technically adequate. Comparison is made with the echocardiogram of 09/16/2017. The patient was in sinus rhythm with heart rates between 62-66 bpm during the exam. Left Ventricle: The left ventricle is normal in size. Left ventricular wall thickness is mildly increased. The ejection fraction is estimated to be 60- 65%. Left ventricular wall motion is normal. Mitral Valve: There is mild to moderate mitral annular calcification. Aortic Valve: There is a bioprosthetic aortic valve. There is mild to moderate perivalvular regurgitation around the prosthetic aortic valve. The peak aortic velocity is 2.4 m/sec. The aortic valve mean gradient is 13 mmHg. Tricuspid Valve: There is mild tricuspid regurgitation. Right ventricular systolic pressure is estimated to be 20 mmHg plus the clinically estimated CVP which cannot be estimated on this exam. Pericardium/ Pleura There is no pericardial effusion. There is no pleural effusion. MMode/2D Measurements & Calculations LVIDd: 4.6 cm LVOT diam: 1.9 cm LVIDs: 3.0 cm FS: 33.8 % EPSS: 0.57 cm IVSd: 1.3 cm LVPWd: 0.86 cm LV lutz. diameter/BSA (cm/m^2): 2.9 LV sys. diameter/BSA (cm/m^2): 1.9 Doppler Measurements & Calculations Ao V2 max: 244.8 cm/sec LVOT Max Attila: 119.3 cm/sec Ao V2 mean: 169.5 cm/sec LV V1 max P.7 mmHg Ao max P.0 mmHg LV V1 VTI: 28.1 cm Ao mean P.0 mmHg LORNE(I,D): 1.5 cm2 Ao V2 VTI: 55.5 cm LORNE(V,D): 1.4 cm2 sev ratio: 0.51 LORNE indexed to BSA (cm^2/m^2): 0.93 TR max attila: 224.0 cm/sec SV(LVOT): 81.3 ml TR max P.1 mmHg Reading Physician:04:50 PM
--- NOTE | 2024-04-27 13:25 | OT.IP.EVAL ---
Current Diagnoses Primary osteoarthritis, right shoulder (04/26/24) Surgery Performed Operation Date: 04/26/24 12:00 Actual Procedures p Reverse Total Shoulder Arthroplasty with Bicep tenodesis(Right) - Lang Mcclure MD Past Medical History (Last Reviewed 04/26/24 @ 16:53 by Mykel Natarajan MD) Anemia Asthma CAD (coronary artery disease) Cataracts, bilateral (~2012) Cervical spine disease (~2009) Chronic back pain CVA (cerebral vascular accident) (02/2023) Diplopia Fall Gastrointestinal hemorrhage associated with gastric ulcer Generalized anxiety disorder H/O coronary angiogram (08/25/22) Herpes (~1969) Hypertension (01/22/11) Insomnia disorder Mixed hyperlipidemia (01/22/11) Obstructive sleep apnea of adult Other depressive disorder (01/22/11) Painful menstrual periods Paroxysmal A-fib (2023) Restless leg syndrome Shoulder pain SHAGGY (stress urinary incontinence, female) (~10/17/18) Vaginal prolapse (~10/17/18) Vertigo Surgical History (Last Reviewed 04/26/24 @ 16:53 by Mykel Natarajan MD) Anesthesia H/O heart artery stent (2022) H/O hernia repair History of cholecystectomy History of hysterectomy S/p TAVR (transcatheter aortic valve replacement), 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) Occupational Therapy Inpatient Evaluation/Re-Eval M1 PT/OT-IP Prior Functional Status Start: 04/27/24 12:41 Freq: NEEDED Status: Active Protocol: Document 04/27/24 13:30 [facility] (Rec: 04/27/24 13:41 [facility] [id number]) Medical Review Prior Functional Status Medical History Reviewed Yes Communication able to make needs known Mobility and Gait pt stated that she was somewhat independent with mobility: staff at [facility] assists her as needed: assists pt with bed mobility; pt stated that she is able to walk with her 4WW in her apartment by herself and use the toilet but asks for assistance if she needs to; only ambulated in her apartment and uses a manual w/ c for going outside her apartment Prior Functional Level (Other details) pt has been getting PT at [facility] Social History Household Members none Living Arrangements Assisted Living Number of Stairs To Enter/Railing? pt [place] [address] [place] level with access to an elevator Home Environment Standard Height Toilet,Walk in Shower Home Equipment Four Wheel Walker,Hand Held Shower Additional Social History Comment pt has an adjustable bed M2 OT-IP Current Condition Start: 04/27/24 13:30 Freq: Status: Active Protocol: Document 04/27/24 13:30 [facility] (Rec: 04/27/24 13:41 [facility] [id number]) Occupational Therapy Current Condition Current Condition Evaluation Date 04/27/24 Treatment Diagnosis S/P R TSA Diagnosis Onset Date 04/26/24 Weight Bearing Status Weight Bearing Status Non-Weight Bearing Allowed Weight Bearing Amount (enter % RUE NWB or #) (%) M3 OT- IP Subjective and Pain Start: 04/27/24 13:30 Freq: Status: Active Protocol: Document 04/27/24 13:30 [facility] (Rec: 04/27/24 13:41 [facility] [id number]) OT- Subjective Occupational Therapy Visit Type Type Initial Evaluation Visit Start Time 13:05 Visit Stop Time 13:25 Occupational Therapy Visit Comments Patient Comments Pt agreed to work with OT but not feeling well to get up at this time, as feeling woozy. Patient/Caregiver Goals To go to skilled rehab. OT Pain Assessment Pain When Pain Assessed During Mobility Pain Present Pain Present Pain Reported Location Right Shoulder Pain Behaviors Facial Grimacing,Holding Area, Wincing M4 OT- IP ADL's Start: 04/27/24 13:30 Freq: Status: Active Protocol: Document 04/27/24 13:30 [facility] (Rec: 04/27/24 13:41 [facility] [id number]) OT EDA-Giti-Uqptsyx General Evaluation Self-Feeding Ability Standby Assistance Areas Needing Assistance Cutting Food,Opening Containers Comments OT Self-Feeding Comments Pt needing set-up assist at this time. OT ADL-Grooming Comments OT Grooming Comments Pt will need at least set-up assist. OT ADL-Oral Care Comments Oral Care Comments Not performed. OT ADL-Dressing General Eval Lower Body Dressing Ability Total Assistance Areas Needing Assistance Socks OT ADL-Toileting General Evaluation Toileting Ability Total Assistance Comments OT Toileting Comments Purewick in place. OT ADL-Bathing Comments OT Bathing Comments Sponge bath more appropriate at this time. M5 OT- IP IADL's Start: 04/27/24 13:30 Freq: Status: Active Protocol: Document 04/27/24 13:30 [facility] (Rec: 04/27/24 13:41 [facility] [id number]) OT-Instrumental Activities of Daily Living Home Safety Awareness Awareness of Need for Assistance at Home Good Awareness Meal Preparation Meal Preparation Caregiver Provides Assist Radiological Equipment Specialist Radiological Equipment Specialist Caregiver Provides Assist M6 OT- IP Functional Cognition Start: 04/27/24 13:30 Freq: Status: Active Protocol: Document 04/27/24 13:30 [facility] (Rec: 04/27/24 13:41 [facility] [id number]) Cognitive Factors Limiting Selfcare Function Cognitive Ability Level of Alertness Alert Cognitive Comments Cognitive Assessment Comments Pt not feeling well but able to follow commands. OT- Vision and Hearing OT- Hearing Assessment OT- Hearing Assessment Hearing Impaired OT- Vision Assessment Visual Acuity Glasses All The Time Vision Assessment Comments Glasses for distance M7 OT- IP Mobility and Balance Start: 04/27/24 13:30 Freq: Status: Active Protocol: Document 04/27/24 13:30 [facility] (Rec: 04/27/24 13:41 [facility] [id number]) OT-Transfer Assessment Comments Mobility Comments Please see PT eval, at this time pt having low BP and not wanting to get up at this time . BP HOB up 87/39, head down in trendelenburg postition 97/ 35 and 99/41- nursing notified and came in to see pt. M8 OT- IP Objective Assessments Start: 04/27/24 13:30 Freq: Status: Active Protocol: Document 04/27/24 13:30 [facility] (Rec: 04/27/24 13:41 [facility] [id number]) OT Gross Range of Motion Upper Extremity Range of Motion Assessment Bilaterally Impaired OT Strength Upper Extremity Strength Assessment Bilaterally Impaired M9 OT- IP Assessment and Plan Start: 04/27/24 13:30 Freq: Status: Active Protocol: Document 04/27/24 13:30 [facility] (Rec: 04/27/24 13:41 [facility] [id number]) OT Summary Assessment and Plan Potential Rehabilitation Potential Fair Analytic Complexity at Evaluation Moderate Summary OT Impairments Pain,Range of Motion,Strength, Balance,Functional Mobility, Self-Feeding,Grooming,Dressing ,Toileting,Bathing,Toilet Transfers,Shower Transfers, Activity Tolerance Progress Towards Goals Slow Progress due to Pain,Slow Progress due to Medical Issues,Slow Progress due to Activity Tolerance Assessment Summary Pt MOD complexity and main barriers are hypotensive, needing extensive assist for all needs at this time. Pt planning to go to skilled rehab when medically stable. Goals Self-Feeding Goal Standby Assistance Grooming Goal Standby Assistance Dressing Goal Moderate Assistance Toileting Goal Moderate Assistance Bathing Goal Moderate Assistance Toilet Transfer Goal Minimal Assistance Shower Transfer Goal Moderate Assistance Days to Meet Goals 25 Frequency of Treatment Other frequency 5x/week Treatment Plan OT Treatment Plan ADL Training,Functional Mobility,Patient/Family Education,Discharge Planning Discharge Recommendations OT Discharge Recommendations SNF Rehab Transportation Needs at Discharge Wheelchair/Cabulance,Stretcher /Ambulance
[2024-04-27 13:50] LABS: Hematocrit 25.1 % (36-46); Hemoglobin 8.5 g/dL (12.0-16.0)
[2024-04-27] MEDS: SODIUM CHLORIDE 0.9% 500 ML 250 ML IV (14:06)
[2024-04-27 14:37] LABS: Troponin I 0.277 ng/mL (0.01-0.034)
--- NOTE | 2024-04-27 16:12 | PM.EVENT ---
Event Note Date Patient Seen: 04/27/24 Time Patient Seen: 13:30 Event Note (Rapid Response, Code, or fall): Postoperative hypotension. The patient developed postoperative hypotension. The patient denied CP and improved with IVF bolus. The patient has an elevated troponin of 0.2. Plan: -continue apixaban -continue aspirin -resume beta laura when blood pressures remained stable -trend troponin -limited echo to assess EF, aortic valve replacement integrity, and rule out wall motion abnormalities. 35 min spent
--- NOTE | 2024-04-27 16:39 | PT-IP ANOTE ---
checked with nurse and informed that pt has had low BP and also now has elevated troponin. will hold PT this afternoon.
--- NOTE | 2024-04-27 18:20 | PM.PNPO.1 ---
Subjective Subjective Interval history: Maria Eugenia is a pleasant 88 year old female who is POD#1 s/p Right reverse total shoulder arthroplasty with autografting of the glenoid by Dr. Mcclure. The procedure was uncomplicated, she did suffer from some transient postoperative hypotension which improved with IV fluids. Today she reports she is doing well overall, she does endorse being in a lot of pain still. Denies any numbness or tingling in the RUE. She has a purewik in place. She reports she was able to get up with PT in bed on the commode today she also sat in the bedside chair, she reports it felt good to get up but then she did start to feel ?woozy? and felt her blood pressure was low until she laid back down in bed again. She lives alone in an elderly the residence, [facility]. She plans to discharge to [facility] for her initial rehab prior to returning to [facility]. Denies fever, chills, chest pain, SOB, nausea, vomiting. Denies any feelings of lightheadedness or dizziness. Exam Vital Signs (past 8 hours): - 04/27/24 12:00 04/27/24 16:00 04/27/24 17:05 Temperature 97.7 F 97.2 F L Pulse Rate 60 63 59 L Respiratory Rate 18 17 Blood Pressure 105/45 L 103/48 L 109/48 L Pulse Oximetry 97 96 Oxygen Flow Rate 0 0 Fraction of Inspired Oxygen 50 Oxygen Delivery Method Room Air Oxygen Flow Rate 0 Narrative Exam Narrative: Patient sitting up comfortably in bed during our interview today. No acute distress. AOx3. Grossly normal alignment of the RUE. No significant swelling. 5/5 qc tech strength, finger adduction, abduction, wrist flexion and extension. Finger to thumb opposition intact. Gross sensation intact throughout bilateral upper extremities. Calves soft and non-tender bilaterally. SCDs are NOT on. Brisk capillary refill, pulses intact. Post-surgical Aquacel dressing clean, dry and intact over the right shoulder without drainage, sling in place in appropriate alignment. Objective Labs 04/27/24 13:40 04/26/24 20:15 Labs: Laboratory Results - last 24 hr 04/26/24 04/26/24 04/27/24 20:15 20:19 04:10 WBC 12.5 H D RBC 2.86 L Hgb 9.9 L 9.2 L Hct 29.6 L 26.8 L MCV 103.8 H MCH 34.5 H MCHC 33.2 RDW 13.5 Plt Count 200 Neut % (Auto) 90.3 H Lymph % (Auto) 3.6 L [place] % (Auto) 5.9 Eos % (Auto) 0.0 L Baso % (Auto) 0.2 Neut # (Auto) 45607 H Lymph # (Auto) 500 L [place] # (Auto) 700 Eos # (Auto) 0 Baso # (Auto) 0 ABG pH 7.42 ABG pCO2 33.6 L ABG pO2 53 L ABG HCO3 22 L ABG Total CO2 21 L ABG O2 Saturation 88 L ABG Base Excess -2.4 L Sodium 128 L Potassium 4.3 Chloride 94 L Carbon Dioxide 24 BUN 23 H Creatinine 0.73 Estimated GFR > 60 BUN/Creatinine Ratio 31.5 H Glucose 190 H Calcium 8.4 Magnesium 1.7 Troponin I NT-Pro-B Natriuret Pep 854 H 04/27/24 13:40 WBC RBC Hgb 8.5 L Hct 25.1 L MCV MCH MCHC RDW Plt Count Neut % (Auto) Lymph % (Auto) [place] % (Auto) Eos % (Auto) Baso % (Auto) Neut # (Auto) Lymph # (Auto) [place] # (Auto) Eos # (Auto) Baso # (Auto) ABG pH ABG pCO2 ABG pO2 ABG HCO3 ABG Total CO2 ABG O2 Saturation ABG Base Excess Sodium Potassium Chloride Carbon Dioxide BUN Creatinine Estimated GFR BUN/Creatinine Ratio Glucose Calcium Magnesium Troponin I 0.277 H* NT-Pro-B Natriuret Pep [facility] Medical History CVA (cerebral vascular accident) (02/2023) Anemia Gastrointestinal hemorrhage associated with gastric ulcer H/O coronary angiogram (08/25/22) CAD (coronary artery disease) Paroxysmal A-fib (2023) Fall Restless leg syndrome Shoulder pain Chronic back pain Cervical spine disease (~2009) Vertigo Cataracts, bilateral (~2012) Painful menstrual periods Herpes (~1969) SHAGGY (stress urinary incontinence, female) (~10/17/18) Vaginal prolapse (~10/17/18) Insomnia disorder Hypertension (01/22/11) Obstructive sleep apnea of adult Asthma Diplopia Other depressive disorder (01/22/11) Generalized anxiety disorder Mixed hyperlipidemia (01/22/11) Surgical History S/p TAVR (transcatheter aortic valve replacement), 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 2) Continue multimodal pain management with ice to the shoulder for additional pain control. 3) Eliquis 2.5mg BID. Counseled patient on the importance of wearing SCDs while in bed to prevent blood clot. 4) May work w/ PT on appropriate ROM per JDG protocol and safe ambulation. 5) Keep dressing intact, clean, dry until 2 week postop appointment. No soaking the incision site in pools or tubs. No topical ointments or creams to the incision site. 6) Follow up at [facility] orthopedics in 2 weeks for a postop appointment and wound check. All patient's questions were answered, she demonstrates understanding and is in agreement with the plan. Call our office if any questions or concerns arise. Quality VTE Deep Vein Thrombosis/Pulmonary Embolism Present on Admission: No
[2024-04-27 18:23] LABS: Troponin I 0.271 ng/mL (0.01-0.034)
[2024-04-27] MEDS: ASPIRIN EC 81 MG TABLET PO (18:42)
[2024-04-27] MEDS: VIT C/E/ZN/COPPR/LUTEIN/ZEAXAN CAPSULE 2 CAP PO (20:26)
[2024-04-27] MEDS: MELATONIN 3 MG TABLET 6 MG PO (20:28)
[2024-04-27] MEDS: ROPINIROLE 0.25 MG TABLET PO (20:28)
[2024-04-28 03:00] VITALS: BP 134/55; PULSE 66; RESP 18; TEMP 36.3; O2SAT 97
[2024-04-28] MEDS: ACETAMINOPHEN 325 MG TABLET 650 MG PO ×3 (06:51→20:22)
[2024-04-28] MEDS: PANTOPRAZOLE DR 20 MG TABLET PO (06:51)
[2024-04-28 08:00] VITALS: BP 126/53; PULSE 64; RESP 17; TEMP 36.1; O2SAT 96
[2024-04-28] MEDS: FUROSEMIDE 20 MG TABLET 40 MG PO ×2 (08:37→08:51)
[2024-04-28] MEDS: AMIODARONE 200 MG TABLET 100 MG PO (08:37)
[2024-04-28] MEDS: estradioL 1 MG TABLET PO (08:37)
[2024-04-28] MEDS: DOCUSATE 100 MG CAPSULE PO ×2 (08:39→20:23)
[2024-04-28] MEDS: SODIUM CHLORIDE 1,000 MG TABLET 1000 MG PO ×2 (08:50→20:23)
[2024-04-28] MEDS: GABAPENTIN 300 MG CAPSULE PO ×2 (08:51→20:23)
[2024-04-28] MEDS: ASPIRIN EC 81 MG TABLET PO (08:51)
[2024-04-28] MEDS: APIXABAN 5 MG TABLET 2.5 MG PO ×2 (08:52→20:23)
[2024-04-28] MEDS: FLUTICASONE 120 SPRAY/16 GM SPRAY.SUSP NASAL (08:54)
[2024-04-28] MEDS: CHOLECALCIFEROL (VITAMIN D3) 1,000 UNIT TABLET 2000 UNIT PO (08:57)
[2024-04-28] MEDS: VIT C/E/ZN/COPPR/LUTEIN/ZEAXAN CAPSULE 2 CAP PO ×2 (08:58→20:22)
[2024-04-28] MEDS: valACYclovir 500 MG TABLET PO (08:59)
[2024-04-28] MEDS: MAGNESIUM OXIDE 400 MG TABLET PO (09:01)
[2024-04-28] MEDS: CELECOXIB 100 MG CAPSULE PO ×2 (09:06→20:22)
[2024-04-28 09:14] LABS: Add Manual Diff / Slide Review NO; Basophils Absolute Auto 0 /uL (0-100); Basophils Percent Auto 0.2 % (0-2); Eosinophils Absolute Auto 100 /uL (0-450); Eosinophils Percent Auto 1.1 % (2-4); Hematocrit 27.3 % (36-46); Hemoglobin 9.3 g/dL (12.0-16.0); Lymphocytes Absolute Auto 1300 /uL (1100-4500); Lymphocytes Percent Auto 12.8 % (25-40); Mean Corpuscular HGB Conc 34.1 % (30-36); Mean Corpuscular Hemoglobin 35.4 PG (26-34); Mean Corpuscular Volume 103.8 fL (80-100); Monocytes Absolute Auto 1400 /uL (0-900); Monocytes Percent Auto 13.3 % (3-14); Neutrophils Absolute Auto 7400 /uL (1500-7000); Neutrophils Percent Auto 72.6 % (50-75); Platelet Count 195 X10^3/uL (150-400); Red Blood Cell Count 2.63 X10^6/uL (4.0-5.2); Red Cell Distribution Width 13.7 % (11.6-14.8); White Blood Cell Count 10.2 X10^3/uL (4.5-11.0)
--- NOTE | 2024-04-28 09:17 | P.PN_ITS ---
Subjective Subjective Date Patient Seen: 04/28/24 Time Patient Seen: 09:17 Interval history: Patient has right shoulder pain is mild. Denies shortness of breath or chest pain. Denies fever or chills. Exam Vital Signs (past 8 hours): - 04/28/24 03:00 04/28/24 08:00 Temperature 97.3 F L 97.0 F L Pulse Rate 66 64 Respiratory Rate 18 17 Blood Pressure 134/55 L 126/53 L Pulse Oximetry 97 96 Oxygen Flow Rate 0 Fraction of Inspired Oxygen 50 Oxygen Delivery Method Room Air Oxygen Flow Rate 0 Narrative Exam Narrative: 88-year-old female resting comfortably in bed in no apparent distress. Right shoulder dressing is clean, dry and intact. Motor functions intact right upper extremity. Sensation grossly intact to light touch right upper extremity. She has good capillary refill. Const General: cooperative and comfortable Nutritional Appearance: average body habitus Orientation: alert Resp Effort & Inspection: normal respiratory effort and able to speak in complete sentences Objective Labs 04/27/24 13:40 04/26/24 20:15 Labs: Laboratory Results - last 24 hr 04/27/24 04/27/24 13:40 17:35 Hgb 8.5 L Hct 25.1 L Troponin I 0.277 H* 0.271 H* PFSH Medical History CVA (cerebral vascular accident) (02/2023) Anemia Gastrointestinal hemorrhage associated with gastric ulcer H/O coronary angiogram (08/25/22) CAD (coronary artery disease) Paroxysmal A-fib (2023) Fall Restless leg syndrome Shoulder pain Chronic back pain Cervical spine disease (~2009) Vertigo Cataracts, bilateral (~2012) Painful menstrual periods Herpes (~1969) SHAGGY (stress urinary incontinence, female) (~10/17/18) Vaginal prolapse (~10/17/18) Insomnia disorder Hypertension (01/22/11) Obstructive sleep apnea of adult Asthma Diplopia Other depressive disorder (01/22/11) Generalized anxiety disorder Mixed hyperlipidemia (01/22/11) Surgical History S/p TAVR (transcatheter aortic valve replacement), 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) H/O heart artery stent (2022) H/O hernia repair Anesthesia History of cholecystectomy History of hysterectomy Family History Father History of heart disease Brother Mental health problem Sister Breast cancer Social History household members: none Smoking Status: Never smoker alcohol intake: former Assessment & Plan Post-op Postoperative Procedures: Procedures Operation Date: 04/26/24 12:00 Actual Procedure Side Surgeon p Reverse Total Shoulder Arthroplasty with Bicep tenodesis Right Lang Mcclure MD Postoperative day: 2 Postoperative status narrative: Stable Postoperative plan narrative: Status post right reverse total shoulder arthroplasty with autografting of the glenoid April 26, 2024. Remain in sling for 6 weeks. No external rotation past neutral for 6 weeks. Okay for sling to come off for shower. Follow-up outpatient Orthopedics in 2 weeks as previously scheduled. Hospitalist consulted April 26, 2024 for postop hypotension and a complex patient with past medical history of TAVR, CAD with PCI, PAF on chronic Eliquis Current plan per hospitalist is continue telemetry, wean off O2, serial hemoglobins to monitor for worsening anemia, patient has restarted her Eliquis and resumed outpatient/home meds. Appreciate any further recommendations from hospitalist. Discharge to senior care facility when medically stable per hospitalist. Quality VTE Deep Vein Thrombosis/Pulmonary Embolism Present on Admission: No
[2024-04-28 09:34] LABS: BUN Creatinine Ratio 32.9 (6-22); Blood Urea Nitrogen 25 mg/dL (7-17); Calcium 8.4 mg/dL (8.4-10.2); Carbon Dioxide 26 mmol/L (22-32); Chloride 97 mmol/L (98-107); Estimated Glomerular Filt Rate > 60 mL/min (>60); Glucose 108 mg/dL (80-110); HEMOLYSIS < 15 (0-50); Sodium 127 mmol/L (137-145)
--- NOTE | 2024-04-28 11:59 | PC.NURSE ---
this nurse has made mult. attempts to get the patient up to her chair for meals. Patient is not moving on own in bed, and is refusing to wear SCD's. PT in room to work with patient and per PT, patient is refusing to participate and get up to her chair. Patient states I don't like the chair, its uncomforable. A waffle cushion was provided and mult. pillows for comfort of patient. Pt cont. to refuse.
[2024-04-28 12:00] VITALS: BP 118/54; PULSE 67; RESP 18; TEMP 36.2; O2SAT 98
--- NOTE | 2024-04-28 12:06 | PT-IP ANOTE ---
checked on pt and pt refused PT. stated that it is going to be lunch time. informed pt that it is better for her to sit up on the chair for lunch. pt stated that she does not want to sit on the chair and she rather do therapy after lunch. informed nurse.
--- NOTE | 2024-04-28 15:00 | CM.DPNOTE ---
DCP Note Placed call to [facility] today P [phone], spoke with admissions (nm?) who reported the SNF referral had not been received. Admissions rep explained that if patient was accepted, admission would likely be Tuesday at the earliest. Faxed the SNF referral to [facility] [phone] for review. Staff scheduled in admissions Tuesday: Conchita and Tuesday: Leslie. Plan: Discharge to [facility] if patient accepted, transport via private auto vs private pay wheelchair van. CM team following closely for coordination. Still to do: Need acceptance from [facility] and transport. PASRR done. JW
--- NOTE | 2024-04-28 15:24 | PT-IP ANOTE ---
checked back on pt but pt continues to refuse PT. stated that she is really tired and painful shoulder and does not want to do PT.
--- NOTE | 2024-04-28 15:53 | PM.PN.1 ---
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 Underwent R reverse total shoulder arthroplasty 04/26/24.? Post op did fairly well but developed symptomatic hypotension on 04/27/24.? Echo revealed EF 60-65%, mild to mod perivalvular regurgitation around the prosthetic aortic valve.??? Hgb 8.5, down from 12.7 pre-op.? Trop was elevated at 0.27. Patient reports she is generally feeling bit poor today. She states she has not had a bowel movement since a day or 2 before admission. She denies any nausea. She states that her shoulder is painful but responds well to treatment with ice packs. She reports she was offered MiraLax this morning but declined it and now wonders if she should take it. She realizes that she is not moving around as much and is worried that she may develop some constipation. Typically, she states she moves her bowels every couple of days. Exam Vital Signs (past 8 hours): - 04/28/24 08:00 04/28/24 10:01 04/28/24 12:00 Temperature 97.0 F L 97.2 F L Pulse Rate 64 67 Respiratory Rate 17 18 Blood Pressure 126/53 L 118/54 L Pulse Oximetry 96 98 Oxygen Delivery Method Room Air Fraction of Inspired Oxygen 50 Oxygen Delivery Method Room Air Oxygen Flow Rate 0 Narrative Exam Narrative: GEN: Very pleasant elderly female, Alert and oriented x 3, NAD HEENT:NC, Face symmetric CHEST: Respiratory excursions symmetric, CTAB, right shoulder in a sling CV: RRR, no M/R/G ABD: Soft, NT/ND, BT present in all 4 quadrants, no organomegaly or masses EXTR: warm, well perfused, no C/C/E SKIN: warm and dry, no rash NEURO: Alert and oriented x 3, nonfocal Objective Labs 04/28/24 09:10 04/28/24 09:10 Labs: Laboratory Results - last 24 hr 04/27/24 04/28/24 17:35 09:10 WBC 10.2 RBC 2.63 L Hgb 9.3 L Hct 27.3 L MCV 103.8 H MCH 35.4 H MCHC 34.1 RDW 13.7 Plt Count 195 Neut % (Auto) 72.6 Lymph % (Auto) 12.8 L [place] % (Auto) 13.3 Eos % (Auto) 1.1 L Baso % (Auto) 0.2 Neut # (Auto) 7400 H Lymph # (Auto) 1300 [place] # (Auto) 1400 H Eos # (Auto) 100 Baso # (Auto) 0 Sodium 127 L Potassium 4.0 Chloride 97 L Carbon Dioxide 26 BUN 25 H Creatinine 0.76 Estimated GFR > 60 BUN/Creatinine Ratio 32.9 H Glucose 108 Calcium 8.4 Troponin I 0.271 H* PFSH Medical History CVA (cerebral vascular accident) (02/2023) Anemia Gastrointestinal hemorrhage associated with gastric ulcer H/O coronary angiogram (08/25/22) CAD (coronary artery disease) Paroxysmal A-fib (2023) Fall Restless leg syndrome Shoulder pain Chronic back pain Cervical spine disease (~2009) Vertigo Cataracts, bilateral (~2012) Painful menstrual periods Herpes (~1969) SHAGGY (stress urinary incontinence, female) (~10/17/18) Vaginal prolapse (~10/17/18) Insomnia disorder Hypertension (01/22/11) Obstructive sleep apnea of adult Asthma Diplopia Other depressive disorder (01/22/11) Generalized anxiety disorder Mixed hyperlipidemia (01/22/11) Surgical History S/p TAVR (transcatheter aortic valve replacement), 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 Coronary artery disease Patient did have a mild troponin elevation. However, echocardiogram revealed no evidence of wall motion abnormalities. Suspect this was secondary to transient hypotension and hypoxia. She is asymptomatic at this time. Continue daily aspirin, beta-laura, furosemide, Imdur, ARB 2. Paroxysmal atrial fibrillation She is resuming Eliquis today per orthopedic surgery. She has regular on exam today and rate controlled. Continue amiodarone, metoprolol 3. History of TAVR, with periprosthetic regurgitation Previous echo in September of this year revealed mild valvular insufficiency. There is now mild to moderate valvular insufficiency. Discussed these results with the patient and advised she will need outpatient follow-up in the fairly near future with her ep specialist. 4. Postoperative day 2 from right reverse total shoulder arthroplasty with autografting of the glenoid She remains in a sling and will do so for the next 6 weeks per Orthopedic surgery. Ongoing management per Orthopedic surgery. Ice packs are working well. 5. Remote history of GI bleed Remains on pantoprazole. 6. Chronic left bundle branch block Unchanged 7. Chronic hyponatremia Essentially at baseline with sodium in the 127-128 range. Will continue to monitor. 8. Chronic iron deficiency anemia Hemoglobin is improved today at 9.3, up from 8.5 yesterday. 9. Remote thalamic stroke Continue usual outpatient medications 10. Code status Full Prophylaxis Eliquis Disposition Pending insurance authorization for her to go to [facility] Time-Based Coding :: [TOTAL MINUTES] spent with patient and on the chart (including review of chart, obtaining history, exam, reviewing outside data, placing orders, documenting exam and treatment plan, and counseling patient) on [DATE]. Quality VTE Deep Vein Thrombosis/Pulmonary Embolism Present on Admission: No
[2024-04-28 16:00] VITALS: BP 161/66; PULSE 68; RESP 17; TEMP 36.2; O2SAT 100
[2024-04-28 16:07] VITALS: BP 161/66; PULSE 68
[2024-04-28] MEDS: HYDROCODONE/ACET 5/325 TABLET 1 TAB PO (16:07)
[2024-04-28] MEDS: LOSARTAN 25 MG TABLET 50 MG PO (16:07)
[2024-04-28] MEDS: SENNOSIDES 8.6 MG TABLET 17.2 MG PO (20:22)
[2024-04-28] MEDS: MELATONIN 3 MG TABLET 6 MG PO (20:23)
[2024-04-28] MEDS: ROPINIROLE 0.25 MG TABLET PO (20:23)
[2024-04-28] MEDS: METOPROLOL IR 25 MG TABLET 12.5 MG PO (20:25)
[2024-04-28 20:26] VITALS: BP 148/59; PULSE 73; RESP 16; TEMP 36.3; O2SAT 97
[2024-04-29] VITALS (11 sets, daily range): BP systolic 99–160; BP diastolic 42–70; PULSE 59–74; RESP 11–18; TEMP 35.9–36.4; O2SAT 94–99
[2024-04-29] MEDS: ACETAMINOPHEN 325 MG TABLET 650 MG PO ×4 (03:38→20:13)
[2024-04-29 06:22] LABS: Add Manual Diff / Slide Review NO; Basophils Absolute Auto 0 /uL (0-100); Basophils Percent Auto 0.4 % (0-2); Eosinophils Absolute Auto 200 /uL (0-450); Eosinophils Percent Auto 2.4 % (2-4); Hemoglobin 8.6 g/dL (12.0-16.0); Lymphocytes Absolute Auto 1500 /uL (1100-4500); Lymphocytes Percent Auto 15.9 % (25-40); Mean Corpuscular HGB Conc 34.2 % (30-36); Mean Corpuscular Hemoglobin 35.3 PG (26-34); Mean Corpuscular Volume 103.2 fL (80-100); Monocytes Absolute Auto 1100 /uL (0-900); Monocytes Percent Auto 11.9 % (3-14); Neutrophils Absolute Auto 6500 /uL (1500-7000); Neutrophils Percent Auto 69.4 % (50-75); Platelet Count 194 X10^3/uL (150-400); Red Blood Cell Count 2.43 X10^6/uL (4.0-5.2); Red Cell Distribution Width 13.5 % (11.6-14.8); White Blood Cell Count 9.4 X10^3/uL (4.5-11.0)
[2024-04-29 06:37] LABS: BUN Creatinine Ratio 34.1 (6-22); Blood Urea Nitrogen 28 mg/dL (7-17); Calcium 8.2 mg/dL (8.4-10.2); Carbon Dioxide 26 mmol/L (22-32); Chloride 91 mmol/L (98-107); Estimated Glomerular Filt Rate > 60 mL/min (>60); Glucose 103 mg/dL (80-110); HEMOLYSIS < 15 (0-50); Potassium 4.3 mmol/L (3.4-5.1); Sodium 122 mmol/L (137-145)
--- NOTE | 2024-04-29 06:46 | PC.NURSE ---
Notified Dr Hackett on Na 122. Pt on sodium tablets BID. Dr read message, no orders at this time. Will pass down in nurse report as well.
[2024-04-29] MEDS: PANTOPRAZOLE DR 20 MG TABLET PO (06:54)
[2024-04-29 07:39] LABS: Folate 12.7 ng/mL (2.76-20.0); Vitamin B12 434 pg/mL (239-931)
[2024-04-29] MEDS: CELECOXIB 100 MG CAPSULE PO ×2 (08:22→20:14)
[2024-04-29] MEDS: CHOLECALCIFEROL (VITAMIN D3) 1,000 UNIT TABLET 2000 UNIT PO (08:23)
[2024-04-29] MEDS: MAGNESIUM OXIDE 400 MG TABLET PO (08:23)
[2024-04-29] MEDS: VIT C/E/ZN/COPPR/LUTEIN/ZEAXAN CAPSULE 2 CAP PO ×2 (08:23→20:13)
[2024-04-29] MEDS: ASPIRIN EC 81 MG TABLET PO (08:23)
[2024-04-29] MEDS: estradioL 1 MG TABLET PO (08:23)
[2024-04-29] MEDS: GABAPENTIN 300 MG CAPSULE PO (08:23)
[2024-04-29] MEDS: valACYclovir 500 MG TABLET PO (08:23)
[2024-04-29] MEDS: DOCUSATE 100 MG CAPSULE PO (08:23)
[2024-04-29] MEDS: APIXABAN 5 MG TABLET 2.5 MG PO ×2 (08:24→20:21)
[2024-04-29] MEDS: SODIUM CHLORIDE 1,000 MG TABLET 1000 MG PO ×2 (08:24→17:21)
[2024-04-29] MEDS: ISOSORBIDE MONONITRATE ER 30 MG TABLET PO (08:29)
[2024-04-29] MEDS: AMIODARONE 200 MG TABLET 100 MG PO (08:29)
[2024-04-29] MEDS: FLUTICASONE 120 SPRAY/16 GM SPRAY.SUSP NASAL (08:31)
[2024-04-29] MEDS: SENNOSIDES 8.6 MG TABLET 17.2 MG PO (09:43)
[2024-04-29 09:58] LABS: Creatinine Urine Random 34.11 mg/dL; Urea Nitrogen,Urine Random 560 mg/dL
--- NOTE | 2024-04-29 10:18 | PM.PNPO.1 ---
Subjective Subjective Interval history: Patient is status post a right reverse total shoulder arthroplasty. Still complaining of pain to the shoulder. Pain is relatively well controlled while at rest but states it can get rather significant with any type of movement. Exam Vital Signs (past 8 hours): - 04/29/24 04:00 04/29/24 08:00 Temperature 97.3 F L 96.6 F L Pulse Rate 62 61 Respiratory Rate 14 16 Blood Pressure 128/58 L 143/58 H Pulse Oximetry 97 98 Oxygen Flow Rate 0 0 Fraction of Inspired Oxygen 50 Oxygen Delivery Method Room Air Oxygen Flow Rate 0 Narrative Exam Narrative: Patient's dressing is clean and dry. Able to flex and extend the fingers. Ulnar, median, and radial nerve intact to both motor and sensory function. Compartments are soft. Objective Labs 04/29/24 05:10 04/29/24 05:10 Labs: Laboratory Results - last 24 hr 04/29/24 04/29/24 05:10 09:32 WBC 9.4 RBC 2.43 L Hgb 8.6 L Hct 25.0 L MCV 103.2 H MCH 35.3 H MCHC 34.2 RDW 13.5 Plt Count 194 Neut % (Auto) 69.4 Lymph % (Auto) 15.9 L [place] % (Auto) 11.9 Eos % (Auto) 2.4 Baso % (Auto) 0.4 Neut # (Auto) 6500 Lymph # (Auto) 1500 [place] # (Auto) 1100 H Eos # (Auto) 200 Baso # (Auto) 0 Sodium 122 L Potassium 4.3 Chloride 91 L Carbon Dioxide 26 BUN 28 H Creatinine 0.82 Estimated GFR > 60 BUN/Creatinine Ratio 34.1 H Glucose 103 Calcium 8.2 L Vitamin B12 434 Folate 12.7 Urine Creatinine 34.11 Urine Urea Nitrogen 560 [facility] Medical History CVA (cerebral vascular accident) (02/2023) Anemia Gastrointestinal hemorrhage associated with gastric ulcer H/O coronary angiogram (08/25/22) CAD (coronary artery disease) Paroxysmal A-fib (2023) Fall Restless leg syndrome Shoulder pain Chronic back pain Cervical spine disease (~2009) Vertigo Cataracts, bilateral (~2012) Painful menstrual periods Herpes (~1969) SHAGGY (stress urinary incontinence, female) (~10/17/18) Vaginal prolapse (~10/17/18) Insomnia disorder Hypertension (01/22/11) Obstructive sleep apnea of adult Asthma Diplopia Other depressive disorder (01/22/11) Generalized anxiety disorder Mixed hyperlipidemia (01/22/11) Surgical History S/p TAVR (transcatheter aortic valve replacement), 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) H/O heart artery stent (2022) H/O hernia repair Anesthesia History of cholecystectomy History of hysterectomy Family History Father History of heart disease Brother Mental health problem Sister Breast cancer Social History household members: none Smoking Status: Never smoker alcohol intake: former Assessment & Plan Post-op Postoperative Procedures: Procedures Operation Date: 04/26/24 12:00 Actual Procedure Side Surgeon p Reverse Total Shoulder Arthroplasty with Bicep tenodesis Right Lang Mcclure MD Postoperative status narrative: Patient is status post a right reverse total shoulder arthroplasty. Patient had cardiac issues after the case. Once patient is cleared by the hospitalist they can be discharged. Quality VTE Deep Vein Thrombosis/Pulmonary Embolism Present on Admission: No
--- NOTE | 2024-04-29 10:53 | PT.IPTN ---
Current Diagnoses Primary osteoarthritis, right shoulder (04/26/24) Surgery Performed Operation Date: 04/26/24 12:00 Actual Procedures p Reverse Total Shoulder Arthroplasty with Bicep tenodesis(Right) - Lang Mcclure MD Physical Therapy Treatment Note M2 PT-IP Current Condition Start: 04/27/24 12:41 Freq: NEEDED Status: Active Protocol: Document 04/27/24 09:30 AB (Rec: 04/27/24 13:02 AB [id number]) Physical Therapy Current Condition Current Condition Evaluation Date 04/27/24 Treatment Diagnosis s/p R TSA reverse; difficulty in walking Onset Date 04/26/24 M3 PT-IP Subjective Start: 04/27/24 12:41 Freq: NEEDED Status: Active Protocol: Document 04/29/24 10:21 MB (Rec: 04/29/24 10:53 MB [id number]) Subjective Physical Therapy Visit Type Type Treatment Note Visit Start Time 10:21 Visit Stop Time 10:44 Number of BAND SHOVER Visits 0 Physical Therapy Visit Comments Patient Comments I was told to rest right now. Why was I told to rest if you want me to move? Therapy Pain Assessment Pain When Pain Assessed At Rest Pain Present Pain Present Pain Reported Location Right Shoulder Intensity 4 M4 PT-IP Mobility and Gait Start: 04/27/24 12:41 Freq: NEEDED Status: Active Protocol: Document 04/29/24 10:21 MB (Rec: 04/29/24 10:53 MB [id number]) PT-Bed Mobility Assessment Supine to Sit Supine to Sit Maximum Assistance,1 Person Assistance,Head of Bed Elevated,Bedrails Sit to Supine Sit to Supine Maximum Assistance,1 Person Assistance Scooting Scooting to Edge of Bed Maximum Assistance Scooting Up and Down in Bed Dependent PT-Transfer Assessment Comments Mobility Comments Attempted STS with hemiwalker from bed and pt states that she cannot straighten legs more and keeps legs leaning on the bed. Throughout treatment , pt does talk with PT but tends to keep her eyes closed and eyes rolled back when they are partially opened and her coloring is somewhat yellowish . BP and HR in left UE: supine 95/45; sitting EOB 126/58, 78 and pt reports some light- headedness with sitting; sitting 1' 133/66, 78. Pt cannot tolerate standing long enough to check in standing. PT-Balance Assessment Sitting Balance and Reactions Static Sitting Balance Ability Fair Dynamic Sitting Balance Ability Poor Standing Balance and Reactions Static Standing Balance Ability Poor Dynamic Standing Balance Ability Poor Device Used hemiwalker M5 PT-IP Objective Assessments Start: 04/27/24 12:41 Freq: NEEDED Status: Active Protocol: Document 04/27/24 09:30 AB (Rec: 04/27/24 13:02 AB [id number]) Orientation Orientation/Cognition Level of Alertness Alert Orientation Name,Place,Situation Language Function Ability Hard of Hearing Safety Awareness Decreased Safety Awareness Memory Description Short Term Impaired Gross Range of Motion Lower Extremity ROM Assessment Within Functional Limits Strength Lower Extremity Strength Assessment Left Impaired Hip 3+/5 Knee 3+/5 Sensation Assessment Sensation Gross Sensation WNL Muscle Tone Muscle Tone WNL Yes M6 PT-IP Treatment Start: 04/27/24 12:41 Freq: NEEDED Status: Active Protocol: Document 04/27/24 09:30 AB (Rec: 04/27/24 13:02 AB [id number]) Physical Therapy Treatment Exercises Exercises Elbow Flexion/Extension,Wrist ROM,Hand ROM Education Education Provided Precautions,Weight Bearing Status,Post-Op Packet,Safety M7 PT-IP Assessment and Plan Start: 04/27/24 12:41 Freq: NEEDED Status: Active Protocol: Document 04/29/24 10:21 MB (Rec: 04/29/24 10:53 MB [id number]) PT Summary Assessment and Plan Potential Rehabilitation Potential Fair Status of Condition at Evaluation Evolving Summary Impairments Pain,ROM,Strength,Balance, Coordination,Sensation,Tone, Cognition,Bed Mobility, Transfers,Gait,Activity Tolerance Assessment Summary Pt is initially hesitant to participate with PT stating she was told to rest and PT reminds her that doctor, nsg and PT all encouraged her for mobility today to improve lungs, mobility and to prepare for skilled d/c. BP is low in supine but increases with sitting EOB. Pt tends to keep eyes closed to partially closed during treatment and her eyes are rolled back in partial closed position. Overall, it does not appear that pt feels very well today. She c/o 4/10 right shoulder pain and her coloring is off. PT did note lower Hgb today. Recommend use of total lift with nsg assistance for OOB to chair today. Recommend SNF at d/c. Goals Bed Mobility Goal Minimal Assistance Transfer Goal Minimal Assistance Gait Goal Minimal Assistance,Stuart Walker Gait Distance 25 Other Goals improve bed mobility, transfers and ambulation using hemiwalker/LRAD 50 ft SBA Days to Meet Goals 10 Frequency of Treatment Frequency Of Treatment Once a Day Treatment Plan Physical Therapy Treatment Plan Bed Mobility Training,Transfer Training,Gait Training, Therapeutic Exercise,Balance Retraining,Post Op Education, Discharge Planning,Hot or Cold Pack,Neuromuscular Re-ed, Coordination Retraining,Manual Therapy Precautions Shoulder Precautions Sling,No External Rotation Other Precautions Order for sling 6 weeks and no ER past neutral 6 weeks Weight Bearing Status Weight Bearing Status Non-Weight Bearing Recommendations To Nursing Amount of Assist Needed Mechanical Lift Discharge Recommendations PT Discharge Recommendations SNF Rehab Transportation Needs at Discharge Wheelchair/Cabulance
[2024-04-29] MEDS: SODIUM CHLORIDE 0.9% 1,000 ML 100 ML IV (11:52)
--- NOTE | 2024-04-29 12:35 | PC.NURSE ---
lots of conversation with patient encouraging to get up to chair for meals. Patient refused for breakfast, said the doctor told me I have to rest. This nurse consulted with provider on for today in hospital. Provider states she didn't say that. It was made known to patient that if she is refusing PT and to get out of bed, it might occur that the facility we are waiting on placement for may or may not refuse to take her as a pt. Pt agreed to work with PT. Per PT patient did not get out of bed today.
--- NOTE | 2024-04-29 14:36 | P.PN_ITS ---
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 Underwent R reverse total shoulder arthroplasty 04/26/24.? Post op did fairly well but developed symptomatic hypotension on 04/27/24.? Echo revealed EF 60-65%, mild to mod perivalvular regurgitation around the prosthetic aortic valve.??? Hgb down from 12.7 pre-op.? Trop was elevated at 0.27. Yesterday, patient reported she was feeling a little bit poor. She had not had a bowel movement since a day or 2 prior to admission. She reported her pain was responding well to ice packs. She reported sleeping poorly overall. This morning, she states she feels more poorly overall. She states she did eat some breakfast but since then has been feeling a bit more nauseated. Denies any significant pain in her shoulder. She is quite sleepy and falls back asleep during my interview. She states she did have some pain in her chest that appeared to be secondary to her surveillance system monitor. She said after they removed and replaced the leads the pain got better, but that it took awhile. Exam Vital Signs (past 8 hours): - 04/29/24 08:00 04/29/24 09:59 04/29/24 12:00 Temperature 96.6 F L 97.3 F L Pulse Rate 61 74 Respiratory Rate 16 15 Blood Pressure 143/58 H 99/48 L Pulse Oximetry 98 94 Oxygen Delivery Method Room Air Oxygen Flow Rate 0 0 Fraction of Inspired Oxygen 50 Oxygen Delivery Method Room Air Oxygen Flow Rate 0 Const Other: GEN: Somnolent elderly female, when aroused she is oriented x 3, pale HEENT:NC, Face symmetric CHEST: Respiratory excursions symmetric, CTAB, right shoulder in a sling CV: RRR, 2 to 3/6 systolic murmur heard best at the left upper sternal border ABD: Soft, NT/ND, BT present in all 4 quadrants, no organomegaly or masses EXTR: warm, well perfused, no C/C/E SKIN: warm and dry, no rash NEURO: Somnolent, oriented x 3, nonfocal Objective Labs 04/29/24 05:10 04/29/24 05:10 Labs: Laboratory Results - last 24 hr 04/29/24 04/29/24 05:10 09:32 WBC 9.4 RBC 2.43 L Hgb 8.6 L Hct 25.0 L MCV 103.2 H MCH 35.3 H MCHC 34.2 RDW 13.5 Plt Count 194 Neut % (Auto) 69.4 Lymph % (Auto) 15.9 L [place] % (Auto) 11.9 Eos % (Auto) 2.4 Baso % (Auto) 0.4 Neut # (Auto) 6500 Lymph # (Auto) 1500 [place] # (Auto) 1100 H Eos # (Auto) 200 Baso # (Auto) 0 Sodium 122 L Potassium 4.3 Chloride 91 L Carbon Dioxide 26 BUN 28 H Creatinine 0.82 Estimated GFR > 60 BUN/Creatinine Ratio 34.1 H Glucose 103 Calcium 8.2 L Troponin I 0.100 H Vitamin B12 434 Folate 12.7 Urine Creatinine 34.11 Urine Urea Nitrogen 560 PFSH Medical History CVA (cerebral vascular accident) (02/2023) Anemia Gastrointestinal hemorrhage associated with gastric ulcer H/O coronary angiogram (08/25/22) CAD (coronary artery disease) Paroxysmal A-fib (2023) Fall Restless leg syndrome Shoulder pain Chronic back pain Cervical spine disease (~2009) Vertigo Cataracts, bilateral (~2012) Painful menstrual periods Herpes (~1969) SHAGGY (stress urinary incontinence, female) (~10/17/18) Vaginal prolapse (~10/17/18) Insomnia disorder Hypertension (01/22/11) Obstructive sleep apnea of adult Asthma Diplopia Other depressive disorder (01/22/11) Generalized anxiety disorder Mixed hyperlipidemia (01/22/11) Surgical History S/p TAVR (transcatheter aortic valve replacement), 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 Coronary artery disease Patient did have a mild troponin elevation. However, echocardiogram revealed no evidence of wall motion abnormalities. Suspect troponin elevation was secondary to transient hypotension and hypoxia. She is asymptomatic at this time. Given her report of chest pain, pallor and overall appearance this morning, I did send a another troponin. It was lower at 0.1 today. Continue daily aspirin, beta- laura, furosemide, Imdur, ARB 2. Paroxysmal atrial fibrillation She is back on her usual dose of Eliquis. She remains regular on exam today and rate controlled. Continue amiodarone, metoprolol 3. History of TAVR, with periprosthetic regurgitation Previous echo in September of this year revealed mild valvular insufficiency. There is now mild to moderate valvular insufficiency. 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 4. Postoperative day 3 from right reverse total shoulder arthroplasty with autografting of the glenoid She remains in a sling and will do so for the next 6 weeks per Orthopedic surgery. Ongoing management per Orthopedic surgery. Ice packs are working well. 5. Somnolence/mild encephalopathy Could be secondary to slightly worse hyponatremia compared to baseline versus medications. Will hold hydrocodone, gabapentin, and discontinue the Benadryl from her Sep. Last dose of hydrocodone was yesterday afternoon around 4:00 p.m.. Unfortunately she did receive her morning dose of gabapentin. Will monitor. We will consider Narcan if she is not clearing this afternoon. Will also consider CT head given prior history of stroke 5. Remote history of GI bleed Remains on pantoprazole. 6. Chronic left bundle branch block Unchanged 7. Chronic hyponatremia Baseline sodium is in the 127-128 range. This morning it is down to 122. Her intake has been relatively low. She has continued on her usual furosemide dose. She is also on sodium chloride tablets. We will start gentle hydration and repeat labs this afternoon. 8. Chronic iron deficiency anemia Hemoglobin is stable at 8.6. 9. Remote thalamic stroke Continue usual outpatient medications. 10. Code status Full Prophylaxis Eliquis Disposition Pending insurance authorization for her to go to [facility] Time-Based Coding :: [TOTAL MINUTES] spent with patient and on the chart (including review of chart, obtaining history, exam, reviewing outside data, placing orders, documenting exam and treatment plan, and counseling patient) on [DATE]. Quality VTE Deep Vein Thrombosis/Pulmonary Embolism Present on Admission: No
[2024-04-29 15:24] LABS: BUN Creatinine Ratio 38.5 (6-22); Blood Urea Nitrogen 30 mg/dL (7-17); Calcium 7.7 mg/dL (8.4-10.2); Carbon Dioxide 26 mmol/L (22-32); Chloride 91 mmol/L (98-107); Estimated Glomerular Filt Rate > 60 mL/min (>60); Glucose 111 mg/dL (80-110); HEMOLYSIS < 15 (0-50); Potassium 4.1 mmol/L (3.4-5.1); Sodium 120 mmol/L (137-145)
--- NOTE | 2024-04-29 15:39 | CM.DPNOTE ---
DCP Note GEAR CHANGER reviewed EMR. Per hospitalist in morning rounds, pt sodium low today. Pt was encouraged by nursing staff and PT to mobilize today, pt able to do minimal. See nursing and PT notes for more. Per Conchita at [facility], accepting pending, waiting for Leslie to review on Tuesday when she returns to office. GEAR CHANGER met with pt in room. reports understanding not accepted yet, waiting to know more Tuesday. Highlighted the need to work with PT/OT in order for any facility to accept her, pt reported understanding. Plan: Discharge to [facility] if patient accepted, transport pending. CM team following closely for coordination. PASRR done. TAYLOR Mccauley
[2024-04-29 18:21] LABS: BUN Creatinine Ratio 37.2 (6-22); Blood Urea Nitrogen 29 mg/dL (7-17); Calcium 7.9 mg/dL (8.4-10.2); Carbon Dioxide 26 mmol/L (22-32); Chloride 91 mmol/L (98-107); Estimated Glomerular Filt Rate > 60 mL/min (>60); Glucose 102 mg/dL (80-110); HEMOLYSIS < 15 (0-50); Potassium 4.1 mmol/L (3.4-5.1); Sodium 120 mmol/L (137-145)
[2024-04-29 19:51] LABS: Sodium Urine Random 43 mmol/L (30-90)
[2024-04-29] MEDS: SODIUM CHLORIDE 1,000 MG TABLET 2000 MG PO (20:13)
[2024-04-29] MEDS: MELATONIN 3 MG TABLET 6 MG PO (20:14)
[2024-04-29] MEDS: ROPINIROLE 0.25 MG TABLET PO (20:15)
[2024-04-29 20:22] LABS: BUN Creatinine Ratio 41.3 (6-22); Blood Urea Nitrogen 31 mg/dL (7-17); Calcium 7.6 mg/dL (8.4-10.2); Carbon Dioxide 24 mmol/L (22-32); Chloride 92 mmol/L (98-107); Estimated Glomerular Filt Rate > 60 mL/min (>60); Glucose 113 mg/dL (80-110); HEMOLYSIS < 15 (0-50); Potassium 3.9 mmol/L (3.4-5.1); Sodium 120 mmol/L (137-145)
[2024-04-29] MEDS: SODIUM CHLORIDE 3 % 100 ML 20 ML IV (22:55)
--- NOTE | 2024-04-29 23:17 | PC.NURSE ---
hourly shift: Notified MD Cerna of 2000 labs (Sodium:120). Patient answers orientation questions correctly, however appears drowsy & fatigued. Patient expresses that she feels tired. Denies dizziness, nausea, SOB, CP. VSS, 97% on RA. Hypertonic saline ordered per MD. Updated patient on plan of care. Patient transferred to ICU @ approximately 2230.
[2024-04-30] VITALS (16 sets, daily range): BP systolic 108–162; BP diastolic 53–102; PULSE 58–76; RESP 10–21; TEMP 36.1–37.1; O2SAT 96–99
[2024-04-30 02:11] LABS: BUN Creatinine Ratio 41.4 (6-22); Blood Urea Nitrogen 29 mg/dL (7-17); Calcium 7.8 mg/dL (8.4-10.2); Carbon Dioxide 26 mmol/L (22-32); Chloride 94 mmol/L (98-107); Estimated Glomerular Filt Rate > 60 mL/min (>60); Glucose 102 mg/dL (80-110); HEMOLYSIS < 15 (0-50); Sodium 123 mmol/L (137-145)
[2024-04-30] MEDS: ACETAMINOPHEN 325 MG TABLET 650 MG PO ×3 (05:25→20:33)
[2024-04-30] MEDS: PANTOPRAZOLE DR 20 MG TABLET PO (05:25)
[2024-04-30 05:46] LABS: Add Manual Diff / Slide Review NO; Basophils Absolute Auto 0 /uL (0-100); Basophils Percent Auto 0.2 % (0-2); Eosinophils Absolute Auto 300 /uL (0-450); Hematocrit 23.4 % (36-46); Hemoglobin 8.1 g/dL (12.0-16.0); Lymphocytes Absolute Auto 1200 /uL (1100-4500); Lymphocytes Percent Auto 13.8 % (25-40); Mean Corpuscular HGB Conc 34.6 % (30-36); Mean Corpuscular Hemoglobin 35.4 PG (26-34); Mean Corpuscular Volume 102.5 fL (80-100); Monocytes Absolute Auto 1000 /uL (0-900); Monocytes Percent Auto 11.9 % (3-14); Neutrophils Absolute Auto 6000 /uL (1500-7000); Neutrophils Percent Auto 71.1 % (50-75); Platelet Count 202 X10^3/uL (150-400); Red Blood Cell Count 2.28 X10^6/uL (4.0-5.2); Red Cell Distribution Width 13.2 % (11.6-14.8); White Blood Cell Count 8.4 X10^3/uL (4.5-11.0)
[2024-04-30 05:55] LABS: BUN Creatinine Ratio 35.8 (6-22); Blood Urea Nitrogen 24 mg/dL (7-17); Calcium 7.9 mg/dL (8.4-10.2); Carbon Dioxide 28 mmol/L (22-32); Chloride 97 mmol/L (98-107); Estimated Glomerular Filt Rate > 60 mL/min (>60); Glucose 101 mg/dL (80-110); HEMOLYSIS < 15 (0-50); Sodium 127 mmol/L (137-145)
--- NOTE | 2024-04-30 06:29 | PC.NURSE ---
Patient moved to ICU to receive 3% Sodium Cl IV infusion. A/Ox4, tired and unhappy Denies pain to Rt shoulder, in a sling, drsg CDI, CMS intact. Tolerated infusion, Na+ at 0150 was 123, at 0630 is 127. Patient remains A/Ox4, can express needs, 1000ml + lg incontinent UOP.
[2024-04-30] MEDS: SODIUM CHLORIDE 0.9% FLUSH 10 ML IV ×2 (09:00→20:36)
--- NOTE | 2024-04-30 09:40 | P.PN_ITS ---
Subjective Subjective Date Patient Seen: 04/30/24 Time Patient Seen: 09:40 Interval history: 88 yo female w/paroxysmal a fib on chronic Eliquis (held x 2 days prior to surgery), h/o aortic stenosis s/p TAVR, CAD s/p PCI, moderate MR, thalamic CVA 03/09, hx of GIB.? Underwent R reverse total shoulder arthroplasty 04/26/24.? Post op did fairly well but developed symptomatic hypotension on 04/27/24; hospitalist service consulted.? Echo revealed EF 60-65%, mild to mod perivalvular regurgitation around the prosthetic aortic valve. She was transferred to the ICU around 2300 last night and given 3% NS d/t her hyponatremia. On my visit this morning, I discussed with her that her acceptance at [facility] is still pending, and that she will likely be at at least another day for monitoring and ensuring her vital signs are stable. She says she also needs to work w/ PT and asks if they know Dr Mcclure's protocol, which I have assured her that they do. She is unhappy that the physician himself did not explain to her last night why she was being transferred to the ICU. Exam Vital Signs (past 8 hours): - 04/30/24 02:00 04/30/24 04:00 04/30/24 04:00 Temperature 98.6 F Pulse Rate 58 L 63 Respiratory Rate 13 10 L Blood Pressure 131/60 140/65 Pulse Oximetry 96 96 Oxygen Flow Rate 0 0 04/30/24 06:00 04/30/24 06:00 Temperature Pulse Rate 64 Respiratory Rate 10 L Blood Pressure 129/102 H Pulse Oximetry 98 Oxygen Flow Rate 0 Fraction of Inspired Oxygen 50 Oxygen Delivery Method Room Air Oxygen Flow Rate 0 Narrative Exam Narrative: Aquacel dressing is CDI, sling is appropriately placed. She is able to move all fingers and sensation to touch is intact throughout RUE. Objective Labs 04/30/24 05:30 04/30/24 05:30 Labs: Laboratory Results - last 24 hr 04/29/24 04/29/24 04/29/24 05:10 09:32 15:08 WBC RBC Hgb Hct MCV MCH MCHC RDW Plt Count Neut % (Auto) Lymph % (Auto) [place] % (Auto) Eos % (Auto) Baso % (Auto) Neut # (Auto) Lymph # (Auto) [place] # (Auto) Eos # (Auto) Baso # (Auto) Sodium 120 L Potassium 4.1 Chloride 91 L Carbon Dioxide 26 BUN 30 H Creatinine 0.78 Estimated GFR > 60 BUN/Creatinine Ratio 38.5 H Glucose 111 H Calcium 7.7 L Troponin I 0.100 H Ur Random Sodium 43 Urine Creatinine 34.11 Urine Urea Nitrogen 560 04/29/24 04/29/24 04/30/24 18:05 20:00 01:50 WBC RBC Hgb Hct MCV MCH MCHC RDW Plt Count Neut % (Auto) Lymph % (Auto) [place] % (Auto) Eos % (Auto) Baso % (Auto) Neut # (Auto) Lymph # (Auto) [place] # (Auto) Eos # (Auto) Baso # (Auto) Sodium 120 L 120 L 123 L Potassium 4.1 3.9 4.0 Chloride 91 L 92 L 94 L Carbon Dioxide 26 24 26 BUN 29 H 31 H 29 H Creatinine 0.78 0.75 0.70 Estimated GFR > 60 > 60 > 60 BUN/Creatinine Ratio 37.2 H 41.3 H 41.4 H Glucose 102 113 H 102 Calcium 7.9 L 7.6 L 7.8 L Troponin I Ur Random Sodium Urine Creatinine Urine Urea Nitrogen 04/30/24 05:30 WBC 8.4 RBC 2.28 L Hgb 8.1 L Hct 23.4 L MCV 102.5 H MCH 35.4 H MCHC 34.6 RDW 13.2 Plt Count 202 Neut % (Auto) 71.1 Lymph % (Auto) 13.8 L [place] % (Auto) 11.9 Eos % (Auto) 3.0 Baso % (Auto) 0.2 Neut # (Auto) 6000 Lymph # (Auto) 1200 [place] # (Auto) 1000 H Eos # (Auto) 300 Baso # (Auto) 0 Sodium 127 L Potassium 4.0 Chloride 97 L Carbon Dioxide 28 BUN 24 H Creatinine 0.67 Estimated GFR > 60 BUN/Creatinine Ratio 35.8 H Glucose 101 Calcium 7.9 L Troponin I Ur Random Sodium Urine Creatinine Urine Urea Nitrogen [facility] Medical History CVA (cerebral vascular accident) (02/2023) Anemia Gastrointestinal hemorrhage associated with gastric ulcer H/O coronary angiogram (08/25/22) CAD (coronary artery disease) Paroxysmal A-fib (2023) Fall Restless leg syndrome Shoulder pain Chronic back pain Cervical spine disease (~2009) Vertigo Cataracts, bilateral (~2012) Painful menstrual periods Herpes (~1969) SHAGGY (stress urinary incontinence, female) (~10/17/18) Vaginal prolapse (~10/17/18) Insomnia disorder Hypertension (01/22/11) Obstructive sleep apnea of adult Asthma Diplopia Other depressive disorder (01/22/11) Generalized anxiety disorder Mixed hyperlipidemia (01/22/11) Surgical History S/p TAVR (transcatheter aortic valve replacement), 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) H/O heart artery stent (2022) H/O hernia repair Anesthesia History of cholecystectomy History of hysterectomy Family History Father History of heart disease Brother Mental health problem Sister Breast cancer Social History household members: none Smoking Status: Never smoker alcohol intake: former Assessment & Plan Post-op Assessment and plan (1) Status post total shoulder arthroplasty: Assessment and Plan narrative: 1) Multiple medical issues; we are extremely grateful for hospitalist help with management. 2) VTE prophylaxis per hospitalist service. 3) Sling at all times; may have off for hygiene. NWB to RUE, no PROM to RUE x 2 weeks. 4) Will continue to f/u CM progress w/ discharge. Postoperative Procedures: Procedures Operation Date: 04/26/24 12:00 Actual Procedure Side Surgeon p Reverse Total Shoulder Arthroplasty with Bicep tenodesis Right Lang Mcclure MD Postoperative day: 4 Quality VTE Deep Vein Thrombosis/Pulmonary Embolism Present on Admission: No
[2024-04-30] MEDS: AMIODARONE 200 MG TABLET 100 MG PO (10:06)
[2024-04-30] MEDS: APIXABAN 5 MG TABLET 2.5 MG PO ×2 (10:07→20:34)
[2024-04-30] MEDS: ASPIRIN EC 81 MG TABLET PO (10:08)
[2024-04-30] MEDS: CHOLECALCIFEROL (VITAMIN D3) 1,000 UNIT TABLET 2000 UNIT PO (10:09)
[2024-04-30] MEDS: CELECOXIB 100 MG CAPSULE PO ×2 (10:09→20:34)
[2024-04-30] MEDS: DOCUSATE 100 MG CAPSULE PO (10:09)
[2024-04-30] MEDS: estradioL 1 MG TABLET PO (10:10)
[2024-04-30] MEDS: METOPROLOL IR 25 MG TABLET 12.5 MG PO ×2 (10:10→20:35)
[2024-04-30] MEDS: ISOSORBIDE MONONITRATE ER 30 MG TABLET PO (10:10)
[2024-04-30] MEDS: MAGNESIUM OXIDE 400 MG TABLET PO (10:10)
[2024-04-30] MEDS: SODIUM CHLORIDE 1,000 MG TABLET 2000 MG PO ×2 (10:11→20:35)
[2024-04-30] MEDS: SENNOSIDES 8.6 MG TABLET 17.2 MG PO (10:11)
[2024-04-30] MEDS: VIT C/E/ZN/COPPR/LUTEIN/ZEAXAN CAPSULE 2 CAP PO ×2 (10:12→20:34)
[2024-04-30] MEDS: valACYclovir 500 MG TABLET PO (10:12)
[2024-04-30 10:17] LABS: BUN Creatinine Ratio 27.4 (6-22); Blood Urea Nitrogen 20 mg/dL (7-17); Calcium 8.1 mg/dL (8.4-10.2); Carbon Dioxide 26 mmol/L (22-32); Chloride 97 mmol/L (98-107); Estimated Glomerular Filt Rate > 60 mL/min (>60); Glucose 148 mg/dL (80-110); HEMOLYSIS < 15 (0-50); Sodium 127 mmol/L (137-145)
[2024-04-30 11:10] LABS: MRSA (Nasal) PCR NOT DETECTED (Not Detect)
--- NOTE | 2024-04-30 13:23 | PM.PN.1 ---
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 Underwent R reverse total shoulder arthroplasty 04/26/24.? Post op did fairly well but developed symptomatic hypotension on 04/27/24.? Echo revealed EF 60-65%, mild to mod perivalvular regurgitation around the prosthetic aortic valve.??? Hgb down from 12.7 pre-op.? Trop was elevated at 0.27. Today patient did not wish to work with therapies. Overnight was moved to the ICU for 3% infusion due to Na of 120. Na up to 127, stable on repeat after 3% boluses. Exam Vital Signs (past 8 hours): - 04/30/24 06:00 04/30/24 06:00 04/30/24 08:00 Temperature 97.8 F Pulse Rate 64 76 Respiratory Rate 10 L 14 Blood Pressure 129/102 H 133/60 Pulse Oximetry 98 98 Oxygen Delivery Method Oxygen Flow Rate 0 0 04/30/24 08:00 04/30/24 12:00 Temperature 98.0 F Pulse Rate 59 L Respiratory Rate 12 Blood Pressure 108/53 L Pulse Oximetry 99 Oxygen Delivery Method Room Air Oxygen Flow Rate 0 Fraction of Inspired Oxygen 50 Oxygen Delivery Method Room Air Oxygen Flow Rate 0 Const Other: GEN: Somnolent elderly female, when aroused she is oriented x 3, pale HEENT:NC, Face symmetric CHEST: Respiratory excursions symmetric, CTAB, right shoulder in a sling CV: RRR, 2 to 3/6 systolic murmur heard best at the left upper sternal border ABD: Soft, NT/ND, BT present in all 4 quadrants, no organomegaly or masses EXTR: warm, well perfused, no C/C/E SKIN: warm and dry, no rash NEURO: oriented x 3, nonfocal Objective Labs 04/30/24 05:30 04/30/24 09:45 Labs: Laboratory Results - last 24 hr 04/29/24 04/29/24 04/29/24 09:32 15:08 18:05 WBC RBC Hgb Hct MCV MCH MCHC RDW Plt Count Neut % (Auto) Lymph % (Auto) [place] % (Auto) Eos % (Auto) Baso % (Auto) Neut # (Auto) Lymph # (Auto) [place] # (Auto) Eos # (Auto) Baso # (Auto) Sodium 120 L 120 L Potassium 4.1 4.1 Chloride 91 L 91 L Carbon Dioxide 26 26 BUN 30 H 29 H Creatinine 0.78 0.78 Estimated GFR > 60 > 60 BUN/Creatinine Ratio 38.5 H 37.2 H Glucose 111 H 102 Calcium 7.7 L 7.9 L Ur Random Sodium 43 Nasal Screen MRSA (PCR) 04/29/24 04/30/24 04/30/24 20:00 01:50 05:30 WBC 8.4 RBC 2.28 L Hgb 8.1 L Hct 23.4 L MCV 102.5 H MCH 35.4 H MCHC 34.6 RDW 13.2 Plt Count 202 Neut % (Auto) 71.1 Lymph % (Auto) 13.8 L [place] % (Auto) 11.9 Eos % (Auto) 3.0 Baso % (Auto) 0.2 Neut # (Auto) 6000 Lymph # (Auto) 1200 [place] # (Auto) 1000 H Eos # (Auto) 300 Baso # (Auto) 0 Sodium 120 L 123 L 127 L Potassium 3.9 4.0 4.0 Chloride 92 L 94 L 97 L Carbon Dioxide 24 26 28 BUN 31 H 29 H 24 H Creatinine 0.75 0.70 0.67 Estimated GFR > 60 > 60 > 60 BUN/Creatinine Ratio 41.3 H 41.4 H 35.8 H Glucose 113 H 102 101 Calcium 7.6 L 7.8 L 7.9 L Ur Random Sodium Nasal Screen MRSA (PCR) 04/30/24 04/30/24 05:50 09:45 WBC RBC Hgb Hct MCV MCH MCHC RDW Plt Count Neut % (Auto) Lymph % (Auto) [place] % (Auto) Eos % (Auto) Baso % (Auto) Neut # (Auto) Lymph # (Auto) [place] # (Auto) Eos # (Auto) Baso # (Auto) Sodium 127 L Potassium 4.0 Chloride 97 L Carbon Dioxide 26 BUN 20 H Creatinine 0.73 Estimated GFR > 60 BUN/Creatinine Ratio 27.4 H Glucose 148 H Calcium 8.1 L Ur Random Sodium Nasal Screen MRSA (PCR) Not detected [facility] Medical History CVA (cerebral vascular accident) (02/2023) Anemia Gastrointestinal hemorrhage associated with gastric ulcer H/O coronary angiogram (08/25/22) CAD (coronary artery disease) Paroxysmal A-fib (2023) Fall Restless leg syndrome Shoulder pain Chronic back pain Cervical spine disease (~2009) Vertigo Cataracts, bilateral (~2012) Painful menstrual periods Herpes (~1970) SHAGGY (stress urinary incontinence, female) (~10/17/18) Vaginal prolapse (~10/17/18) Insomnia disorder Hypertension (01/22/11) Obstructive sleep apnea of adult Asthma Diplopia Other depressive disorder (01/22/11) Generalized anxiety disorder Mixed hyperlipidemia (01/22/11) Surgical History S/p TAVR (transcatheter aortic valve replacement), 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 Coronary artery disease Patient did have a mild troponin elevation. However, echocardiogram revealed no evidence of wall motion abnormalities. Suspect troponin elevation was secondary to transient hypotension and hypoxia. Repeat done for chest pain on 04/29 showed continued improvement. 2. Paroxysmal atrial fibrillation She is back on her usual dose of Eliquis. She remains regular on exam today and rate controlled. Continue amiodarone, metoprolol 3. History of TAVR, with periprosthetic regurgitation Previous echo in September of this year revealed mild valvular insufficiency. There is now mild to moderate valvular insufficiency. Patient is aware that she will need outpatient follow-up in the fairly near future with her web software engineer. 4. Postoperative day 3 from right reverse total shoulder arthroplasty with autografting of the glenoid She remains in a sling and will do so for the next 6 weeks per Orthopedic surgery. Ongoing management per Orthopedic surgery. Ice packs are working well. 5. Acute on chronic Hyponatremia with acute metabolic encephalopathy Could be secondary to slightly worse hyponatremia compared to baseline versus medications. Will hold hydrocodone, gabapentin, and discontinue the Benadryl from her Sep. Last dose of hydrocodone was yesterday afternoon around 4:00 p.m.. Unfortunately she did receive her morning dose of gabapentin. Will monitor. -Na dropped to 120, was given 2x boluses of 3% NS from 04/29-04/30 with improvement to 127. -unclear / difficult to tell volume status. Urine Na is >20 but also is on diuretic. Na worse with fluids. Suspect SIADH, but has not been drinking much. Try to limit IV flduids -Discussed with orthopedic team today. 5. Remote history of GI bleed Remains on pantoprazole. 6. Chronic left bundle branch block Unchanged 7. Chronic iron deficiency anemia Hemoglobin slow downtrend at 8.1 today, continue to follow. No signs or symptoms of active bleeding. 8. Remote thalamic stroke Continue usual outpatient medications. 10. Code status Full Prophylaxis Eliquis Disposition Will transfer to SNF when medically stable, likely 1-2 days depending on sodium staying stable or not given 3% boluses needed overnight. Time-Based Coding :: [TOTAL MINUTES] spent with patient and on the chart (including review of chart, obtaining history, exam, reviewing outside data, placing orders, documenting exam and treatment plan, and counseling patient) on [DATE]. Quality VTE Deep Vein Thrombosis/Pulmonary Embolism Present on Admission: No
--- NOTE | 2024-04-30 13:42 | CM.DPNOTE ---
Spoke with Leslie at [facility] and they are still experiencing a covid outbreak with too many patients spread out on ISO, she does not have bed availability for this reason, unsure of when they will be able to accept. Will f/u with [facility] for possible acceptance tomorrow. TAYLOR Whitlock
--- NOTE | 2024-04-30 14:25 | OT.IP.TRT ---
Current Diagnoses Primary osteoarthritis, right shoulder (04/26/24) Presence of unspecified artificial shoulder joint (04/26/24) Surgery Performed Operation Date: 04/26/24 12:00 Actual Procedures p Reverse Total Shoulder Arthroplasty with Bicep tenodesis(Right) - Lang Mcclure MD Occupational Therapy Treatment Note M2 OT-IP Current Condition Start: 04/27/24 13:30 Freq: Status: Active Protocol: Document 04/27/24 13:30 CCC (Rec: 04/27/24 13:41 CCC [id number]) Occupational Therapy Current Condition Current Condition Evaluation Date 04/27/24 Treatment Diagnosis S/P R TSA Diagnosis Onset Date 04/26/24 Weight Bearing Status Weight Bearing Status Non-Weight Bearing Allowed Weight Bearing Amount (enter % RUE NWB or #) (%) M3 OT- IP Subjective and Pain Start: 04/27/24 13:30 Freq: Status: Active Protocol: Document 04/30/24 15:25 CGR (Rec: 04/30/24 15:36 CGR [id number]) OT- Subjective Occupational Therapy Visit Type Type Treatment Note Visit Start Time 13:44 Visit Stop Time 14:25 Notes Partial co-treat with P.T. M4 OT- IP ADL's Start: 04/27/24 13:30 Freq: Status: Active Protocol: Document 04/30/24 15:25 CGR (Rec: 04/30/24 15:36 CGR [id number]) OT [id number] Comments OT Self-Feeding Comments not meal time OT ADL-Grooming Comments OT Grooming Comments not performed OT ADL-Oral Care Comments Oral Care Comments not performed OT ADL-Dressing General Eval Upper Body Dressing Ability Total Assistance Areas Needing Assistance Shoes,Orthosis/Prosthesis Comments OT Dressing Comments for sling and shoes OT ADL-Toileting General Evaluation Toileting Ability Total Assistance Areas Needing Assistance Manage Clothing,Perform Perineal Hygiene Comments OT Toileting Comments Pt transfered to [facility] and had large BM needing total assist to doff breif and to don brief OT ADL-Bathing Comments OT Bathing Comments not performed M5 OT- IP IADL's Start: 04/27/24 13:30 Freq: Status: Active Protocol: Document 04/27/24 13:30 CCC (Rec: 04/27/24 13:41 CCC [id number]) OT-Instrumental Activities of Daily Living Home Safety Awareness Awareness of Need for Assistance at Home Good Awareness Meal Preparation Meal Preparation Caregiver Provides Assist Managed Security Sales Consultant Managed Security Sales Consultant Caregiver Provides Assist M6 OT- IP Functional Cognition Start: 04/27/24 13:30 Freq: Status: Active Protocol: Document 04/27/24 13:30 [facility] (Rec: 04/27/24 13:41 [facility] [id number]) Cognitive Factors Limiting Selfcare Function Cognitive Ability Level of Alertness Alert Cognitive Comments Cognitive Assessment Comments Pt not feeling well but able to follow commands. OT- Vision and Hearing OT- Hearing Assessment OT- Hearing Assessment Hearing Impaired OT- Vision Assessment Visual Acuity Glasses All The Time Vision Assessment Comments Glasses for distance M7 OT- IP Mobility and Balance Start: 04/27/24 13:30 Freq: Status: Active Protocol: Document 04/30/24 15:25 CGR (Rec: 04/30/24 15:36 CGR [id number]) OT- Bed Mobility Assessment Supine to Sit Supine to Sit Assist Maximum Assistance,1 Person Assistance,Head of Bed Elevated,Bedrails Scooting Scooting to Edge of Bed Maximum Assistance,1 Person Assistance,Head of Bed Elevated,Bedrails OT-Transfer Assessment Sit to and From Stand Sit to and from Stand Maximum Assistance,2 Person Assistance Transfers Transfer Ability Maximum Assistance,2 Person Assistance Technique Transfer Destination Bed,Bedside Commode,Chair Transfer Technique Stand Step Pivot Devices Transfer Assistive Devices Gait Belt,Stuart Walker Comments Mobility Comments Pt needed max x 2 for tranfer and stays in a severe forward flexed position thoughout the transfer. Pt did better with the second transfer. Pt also requested to don shoes for the second tranfer which this handbook writer did for pt. OT- Balance Assessment Sitting Balance and Reactions Static Sitting Balance Ability Good Dynamic Sitting Balance Ability Good M8 OT- IP Objective Assessments Start: 04/27/24 13:30 Freq: Status: Active Protocol: Document 04/27/24 13:30 [facility] (Rec: 04/27/24 13:41 [facility] [id number]) OT Gross Range of Motion Upper Extremity Range of Motion Assessment Bilaterally Impaired OT Strength Upper Extremity Strength Assessment Bilaterally Impaired M9 OT- IP Assessment and Plan Start: 04/27/24 13:30 Freq: Status: Active Protocol: Document 04/30/24 15:25 CGR (Rec: 04/30/24 15:36 CGR [id number]) OT Summary Assessment and Plan Potential Rehabilitation Potential Fair Analytic Complexity at Evaluation Moderate Summary OT Impairments Pain,Range of Motion,Strength, Balance,Functional Mobility, Self-Feeding,Grooming,Dressing ,Toileting,Bathing,Toilet Transfers,Shower Transfers, Activity Tolerance Progress Towards Goals Slow Progress due to Pain,Slow Progress due to Medical Issues,Slow Progress due to Activity Tolerance Assessment Summary Pt is progressing but slowly. Pt was able to perform 2 transfers today, from bed to BSC and then to chair. Pt had BM on BSC and performed 5 reps of distal UE exercises while seated on BSC. Pt left sitting up in chair at end of session , call button within reach and all needs at time met. Goals Self-Feeding Goal Standby Assistance Grooming Goal Standby Assistance Dressing Goal Moderate Assistance Toileting Goal Moderate Assistance Bathing Goal Moderate Assistance Toilet Transfer Goal Minimal Assistance Shower Transfer Goal Moderate Assistance Days to Meet Goals 25 Frequency of Treatment Other frequency 5x/week Treatment Plan OT Treatment Plan ADL Training,Functional Mobility,Patient/Family Education,Discharge Planning Discharge Recommendations OT Discharge Recommendations SNF Rehab Transportation Needs at Discharge Wheelchair/Cabulance
--- NOTE | 2024-04-30 14:33 | PT.IPTN ---
Current Diagnoses Primary osteoarthritis, right shoulder (04/26/24) Presence of unspecified artificial shoulder joint (04/26/24) Surgery Performed Operation Date: 04/26/24 12:00 Actual Procedures p Reverse Total Shoulder Arthroplasty with Bicep tenodesis(Right) - Lang Mcclure MD Physical Therapy Treatment Note M2 PT-IP Current Condition Start: 04/27/24 12:41 Freq: NEEDED Status: Active Protocol: Document 04/27/24 09:30 AB (Rec: 04/27/24 13:02 AB [id number]) Physical Therapy Current Condition Current Condition Evaluation Date 04/27/24 Treatment Diagnosis s/p R TSA reverse; difficulty in walking Onset Date 04/26/24 M3 PT-IP Subjective Start: 04/27/24 12:41 Freq: NEEDED Status: Active Protocol: Document 04/30/24 14:00 MB (Rec: 04/30/24 14:33 MB [id number]) Subjective Physical Therapy Visit Type Type Treatment Note Visit Start Time 14:00 Visit Stop Time 14:23 Notes Pt with low vision and has glasses, responds better to clearly stating what the goal is, where moving, and watching her reach towards the direction going first. Severely forward flexed posture. Number of CRAWLER CRANE OPERATOR Visits 0 Physical Therapy Visit Comments Patient Comments Pt is agreeable to therapy, does occ state she is getting impatient and occ states she cannot do some things when asked to cone picker feet to help side-stepping to the left. Therapy Pain Assessment Pain When Pain Assessed At Rest Pain Present Pain Present Denied Pain M4 PT-IP Mobility and Gait Start: 04/27/24 12:41 Freq: NEEDED Status: Active Protocol: Document 04/30/24 14:00 MB (Rec: 04/30/24 14:33 MB [id number]) PT-Bed Mobility Assessment Supine to Sit Supine to Sit Maximum Assistance,1 Person Assistance,Head of Bed Elevated,Bedrails Scooting Scooting to Edge of Bed Maximum Assistance PT-Transfer Assessment Sit to and From Stand Sit to and from Stand Maximum Assistance,2 Person Assistance,Use of Upper Extremities Equipment Transfer Assistive Device Gait Belt,Stuart Walker Orthotic/Prosthetic Devices or Brace: Yes Transfers Transfer Destination Chair,Bedside Commode Transfer Technique Stand Step Pivot Transfer Ability Level of Assist Maximum Assistance,2 Person Assistance,Use of Upper Extremities Comments Mobility Comments Pt states she cannot step when asked to side step to the left with +2 max A and arm of both sides of BSC within reach . Dependent for hygiene after BM. Mod A for saftey for static standing with platform walker during hygiene. Left stepping to chair from BSC with hemiwalker slightly better and pt does tend to reach for hemiwalker with right hand, too, and cued not to do so. Gait Assessment Comments Gait Comments Left side steps only as described above PT-Balance Assessment Sitting Balance and Reactions Static Sitting Balance Ability Fair Dynamic Sitting Balance Ability Poor Standing Balance and Reactions Static Standing Balance Ability Poor Dynamic Standing Balance Ability Poor Device Used hemiwalker M5 PT-IP Objective Assessments Start: 04/27/24 12:41 Freq: NEEDED Status: Active Protocol: Document 04/27/24 09:30 AB (Rec: 04/27/24 13:02 AB [id number]) Orientation Orientation/Cognition Level of Alertness Alert Orientation Name,Place,Situation Language Function Ability Hard of Hearing Safety Awareness Decreased Safety Awareness Memory Description Short Term Impaired Gross Range of Motion Lower Extremity ROM Assessment Within Functional Limits Strength Lower Extremity Strength Assessment Left Impaired Hip 3+/5 Knee 3+/5 Sensation Assessment Sensation Gross Sensation WNL Muscle Tone Muscle Tone WNL Yes M6 PT-IP Treatment Start: 04/27/24 12:41 Freq: NEEDED Status: Active Protocol: Document 04/30/24 14:00 MB (Rec: 04/30/24 14:33 MB [id number]) Physical Therapy Treatment Exercises Exercises Elbow Flexion/Extension,Wrist ROM,Hand ROM Education Education Provided Precautions,Weight Bearing Status,Safety M7 PT-IP Assessment and Plan Start: 04/27/24 12:41 Freq: NEEDED Status: Active Protocol: Document 04/30/24 14:00 MB (Rec: 04/30/24 14:33 MB [id number]) PT Summary Assessment and Plan Potential Rehabilitation Potential Fair Status of Condition at Evaluation Evolving Summary Impairments Pain,ROM,Strength,Balance, Coordination,Sensation,Tone, Cognition,Bed Mobility, Transfers,Gait,Activity Tolerance Progress Towards Goals Slow Progress - Other Assessment Summary Pt is able to transfer to BSC and chair with +2 max A today. Reviewed right wrist and elbow ROM exercises to improve edema and ed pt to con't to perform on her own. Pt is agreeable and then disagreeable with some therapy tasks and this makes progression challenges. She appears fearful of stepping. Goals Bed Mobility Goal Minimal Assistance Transfer Goal Minimal Assistance Gait Goal Minimal Assistance,Stuart Walker Gait Distance 25 Other Goals improve bed mobility, transfers and ambulation using hemiwalker/LRAD 50 ft SBA Days to Meet Goals 5 Frequency of Treatment Frequency Of Treatment Once a Day Treatment Plan Physical Therapy Treatment Plan Bed Mobility Training,Transfer Training,Gait Training, Therapeutic Exercise,Balance Retraining,Post Op Education, Discharge Planning,Hot or Cold Pack,Neuromuscular Re-ed, Coordination Retraining,Manual Therapy Precautions Shoulder Precautions Sling,No External Rotation Other Precautions Order for sling 6 weeks and no ER past neutral 6 weeks Weight Bearing Status Weight Bearing Status Non-Weight Bearing Recommendations To Nursing Amount of Assist Needed 2 Person Assist Discharge Recommendations PT Discharge Recommendations SNF Rehab Transportation Needs at Discharge Wheelchair/Cabulance
[2024-04-30] MEDS: LOSARTAN 25 MG TABLET 50 MG PO (17:46)
[2024-04-30 18:35] LABS: BUN Creatinine Ratio 32.9 (6-22); Blood Urea Nitrogen 24 mg/dL (7-17); Calcium 7.9 mg/dL (8.4-10.2); Carbon Dioxide 25 mmol/L (22-32); Chloride 96 mmol/L (98-107); Estimated Glomerular Filt Rate > 60 mL/min (>60); Glucose 160 mg/dL (80-110); HEMOLYSIS < 15 (0-50); Sodium 125 mmol/L (137-145)
[2024-04-30] MEDS: MELATONIN 3 MG TABLET 6 MG PO (20:33)
[2024-04-30] MEDS: ROPINIROLE 0.25 MG TABLET PO (20:33)
[2024-05-01] VITALS (9 sets, daily range): BP systolic 136–174; BP diastolic 57–73; PULSE 55–74; RESP 12–18; TEMP 36.4–36.7; O2SAT 98–99
[2024-05-01] MEDS: ACETAMINOPHEN 325 MG TABLET 650 MG PO ×4 (05:31→20:15)
[2024-05-01] MEDS: PANTOPRAZOLE DR 20 MG TABLET PO (05:32)
[2024-05-01 06:37] LABS: Add Manual Diff / Slide Review NO; Basophils Absolute Auto 0 /uL (0-100); Basophils Percent Auto 0.3 % (0-2); Eosinophils Absolute Auto 300 /uL (0-450); Eosinophils Percent Auto 2.9 % (2-4); Hematocrit 22.4 % (36-46); Hemoglobin 7.6 g/dL (12.0-16.0); Lymphocytes Absolute Auto 1200 /uL (1100-4500); Lymphocytes Percent Auto 12.7 % (25-40); Mean Corpuscular HGB Conc 33.8 % (30-36); Mean Corpuscular Hemoglobin 34.6 PG (26-34); Mean Corpuscular Volume 102.2 fL (80-100); Monocytes Absolute Auto 1000 /uL (0-900); Monocytes Percent Auto 11.5 % (3-14); Neutrophils Absolute Auto 6600 /uL (1500-7000); Neutrophils Percent Auto 72.6 % (50-75); Platelet Count 220 X10^3/uL (150-400); Red Blood Cell Count 2.19 X10^6/uL (4.0-5.2); Red Cell Distribution Width 12.9 % (11.6-14.8); White Blood Cell Count 9.1 X10^3/uL (4.5-11.0)
[2024-05-01 06:47] LABS: BUN Creatinine Ratio 28.8 (6-22); Blood Urea Nitrogen 17 mg/dL (7-17); Carbon Dioxide 28 mmol/L (22-32); Chloride 97 mmol/L (98-107); Estimated Glomerular Filt Rate > 60 mL/min (>60); Glucose 104 mg/dL (80-110); HEMOLYSIS < 15 (0-50); Potassium 4.3 mmol/L (3.4-5.1); Sodium 128 mmol/L (137-145)
--- NOTE | 2024-05-01 06:51 | PM.PNPO.1 ---
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 Underwent R reverse total shoulder arthroplasty 04/26/24.? Post op did fairly well but developed symptomatic hypotension on 04/27/24; hospitalist service consulted.? Echo revealed EF 60-65%, mild to mod perivalvular regurgitation around the prosthetic aortic valve. Patient found lying in her bed. Says that her pain is controlled with oral medications. No new numbness or tingling to her right arm. She has noticed any increased swelling into her right arm. Denies any fever chills nausea or vomiting. Patient states that she will only be transferred to SNF in [place] and will not go to one in [place]. Exam Vital Signs (past 8 hours): - 05/01/24 04:00 Temperature 98.1 F Pulse Rate 71 Respiratory Rate 17 Blood Pressure 174/73 H Pulse Oximetry 98 Oxygen Flow Rate 0 Fraction of Inspired Oxygen 50 Oxygen Delivery Method Room Air Oxygen Flow Rate 0 Narrative Exam Narrative: Aquacel dressing over right shoulder is clean dry and intact. Sling is covering right arm. Effusion is noted over the dorsum of the right hand and wrist. Patient is able to flex and extend all interphalangeal joints. Sensation is intact to light touch throughout the right upper extremity. Capillary refills less than 2 seconds. Radial pulses intact. Resp Effort & Inspection: normal respiratory effort and able to speak in complete sentences Objective Labs 05/01/24 06:26 05/01/24 06:26 Labs: Laboratory Results - last 24 hr 04/30/24 04/30/24 04/30/24 05:50 09:45 18:00 WBC RBC Hgb Hct MCV MCH MCHC RDW Plt Count Neut % (Auto) Lymph % (Auto) Grundy % (Auto) Eos % (Auto) Baso % (Auto) Neut # (Auto) Lymph # (Auto) Grundy # (Auto) Eos # (Auto) Baso # (Auto) Sodium 127 L 125 L Potassium 4.0 4.0 Chloride 97 L 96 L Carbon Dioxide 26 25 BUN 20 H 24 H Creatinine 0.73 0.73 Estimated GFR > 60 > 60 BUN/Creatinine Ratio 27.4 H 32.9 H Glucose 148 H 160 H Calcium 8.1 L 7.9 L Nasal Screen MRSA (PCR) Not detected 05/01/24 06:26 WBC 9.1 RBC 2.19 L Hgb 7.6 L Hct 22.4 L MCV 102.2 H MCH 34.6 H MCHC 33.8 RDW 12.9 Plt Count 220 Neut % (Auto) 72.6 Lymph % (Auto) 12.7 L Grundy % (Auto) 11.5 Eos % (Auto) 2.9 Baso % (Auto) 0.3 Neut # (Auto) 6600 Lymph # (Auto) 1200 Grundy # (Auto) 1000 H Eos # (Auto) 300 Baso # (Auto) 0 Sodium Potassium Chloride Carbon Dioxide BUN Creatinine Estimated GFR BUN/Creatinine Ratio Glucose Calcium Nasal Screen MRSA (PCR) [facility] Medical History CVA (cerebral vascular accident) (02/2023) Anemia Gastrointestinal hemorrhage associated with gastric ulcer H/O coronary angiogram (08/25/22) CAD (coronary artery disease) Paroxysmal A-fib (2023) Fall Restless leg syndrome Shoulder pain Chronic back pain Cervical spine disease (~2009) Vertigo Cataracts, bilateral (~2012) Painful menstrual periods Herpes (~1969) SHAGGY (stress urinary incontinence, female) (~10/17/18) Vaginal prolapse (~10/17/18) Insomnia disorder Hypertension (01/22/11) Obstructive sleep apnea of adult Asthma Diplopia Other depressive disorder (01/22/11) Generalized anxiety disorder Mixed hyperlipidemia (01/22/11) Surgical History S/p TAVR (transcatheter aortic valve replacement), 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) H/O heart artery stent (2022) H/O hernia repair Anesthesia History of cholecystectomy History of hysterectomy Family History Father History of heart disease Brother Mental health problem Sister Breast cancer Social History household members: none Smoking Status: Never smoker alcohol intake: former Assessment & Plan Post-op Postoperative Procedures: Procedures Operation Date: 10/10/24 12:00 Actual Procedure Side Surgeon p Reverse Total Shoulder Arthroplasty with Bicep tenodesis Right Lang Mcclure MD Postoperative day: 5 Postoperative status: doing well Postoperative plan: routine post-op care Postoperative plan narrative: Na+ 128, BUN Ratio 28.8, Hgb 7.6, Hct 22.4. BP 174/73 Hospitalist notified of lab results. We appreciate hospitalist help with management of multiple medical issues. VTE prophylaxis per hospitalist service. Sling at all times; may have off for hygiene. NWB to RUE, no PROM to RUE x 2 weeks. Work with therapy services to help reduce swelling and promote ADLs with single arm. Will continue to f/u CM progress w/ discharge. Time Spent With Patient Time with patient: 15-24 minutes Quality VTE Deep Vein Thrombosis/Pulmonary Embolism Present on Admission: No
[2024-05-01] MEDS: SODIUM CHLORIDE 0.9% FLUSH 10 ML IV ×2 (09:00→20:22)
[2024-05-01] MEDS: ASPIRIN EC 81 MG TABLET PO (09:53)
[2024-05-01] MEDS: CELECOXIB 100 MG CAPSULE PO ×2 (09:53→20:16)
[2024-05-01] MEDS: AMIODARONE 200 MG TABLET 100 MG PO (09:54)
[2024-05-01] MEDS: APIXABAN 5 MG TABLET 2.5 MG PO ×2 (09:54→20:20)
[2024-05-01] MEDS: ISOSORBIDE MONONITRATE ER 30 MG TABLET PO (09:55)
[2024-05-01] MEDS: CHOLECALCIFEROL (VITAMIN D3) 1,000 UNIT TABLET 2000 UNIT PO (09:55)
[2024-05-01] MEDS: estradioL 1 MG TABLET PO (09:55)
[2024-05-01] MEDS: VIT C/E/ZN/COPPR/LUTEIN/ZEAXAN CAPSULE 2 CAP PO ×2 (09:55→20:26)
[2024-05-01] MEDS: METOPROLOL IR 25 MG TABLET 12.5 MG PO ×2 (09:55→20:18)
[2024-05-01] MEDS: valACYclovir 500 MG TABLET PO (09:55)
[2024-05-01] MEDS: MAGNESIUM OXIDE 400 MG TABLET PO (09:55)
[2024-05-01] MEDS: SODIUM CHLORIDE 1,000 MG TABLET 2000 MG PO ×2 (09:55→20:17)
--- NOTE | 2024-05-01 10:11 | DIET.CONS ---
Dietary Consultation Note Admission Date: 04/26/2024 09:10 Assessment: 88 y F admitted for right total shoulder arthroplasty - reverse. RD screened for LOS. Pt with average recorded PO intakes >75%. DFM reviewed for meal composition. Limited weight hx - 63.1 kg in November 2022. BMI within normal range for age. No nutritional interventions needed. Ht: 157.48 cm Wt: 57.606 kg BMI: 23.2 UBW: 63.1 kg in November 2022. Last BM: 04/30/24 (04/30/24 18:00) MNA: Sukhjinder Score: 18 Diet: 04/26/24 Dinner General (Regular) Diet Diet Modifications: Food Texture: Level 7 - Regular Liquid Consistency: Level 0 - Thin Nutrition Percent Meal Consumed 75% 05/01/24 09:54 Percent Meal Consumed 100% 04/30/24 18:00 Percent Meal Consumed 75% 04/30/24 12:30 Percent Meal Consumed 25% 04/29/24 18:00 Labs: RBC 2.19 X10^6/uL (4.0-5.2) L 05/01/24 06:26 Hgb 7.6 g/dL (12.0-16.0) L 05/01/24 06:26 Hct 22.4 % (36-46) L 05/01/24 06:26 Creatinine 0.59 mg/dL (0.52-1.04) 05/01/24 06:26 NT-Pro-B Natriuret Pep 854 pg/mL (<450) H 04/26/24 20:15 Electronically Signed by: Maria G Hughes 05/01/24 10:11 Clinical Dietitian [address] [address]
--- NOTE | 2024-05-01 10:24 | PT.IPTN ---
Current Diagnoses Primary osteoarthritis, right shoulder (04/26/24) Presence of unspecified artificial shoulder joint (04/26/24) Surgery Performed Operation Date: 04/26/24 12:00 Actual Procedures p Reverse Total Shoulder Arthroplasty with Bicep tenodesis(Right) - Lang Mcclure MD Physical Therapy Treatment Note M2 PT-IP Current Condition Start: 04/27/24 12:41 Freq: NEEDED Status: Active Protocol: Document 04/27/24 09:30 AB (Rec: 04/27/24 13:02 AB [id number]) Physical Therapy Current Condition Current Condition Evaluation Date 04/27/24 Treatment Diagnosis s/p R TSA reverse; difficulty in walking Onset Date 04/26/24 M3 PT-IP Subjective Start: 04/27/24 12:41 Freq: NEEDED Status: Active Protocol: Document 05/01/24 11:05 TS (Rec: 05/01/24 11:12 TS [id number]) Subjective Physical Therapy Visit Type Type Treatment Note Visit Start Time : Visit Stop Time 11:02 Number of TABLE GAMES MANAGER Visits 1 Physical Therapy Visit Comments Patient Comments Pt found resting in bed, reports pain is 4-5 with movement. She is agreeable to PT. Therapy Pain Assessment Location Right Shoulder Intensity 4 M4 PT-IP Mobility and Gait Start: 04/27/24 12:41 Freq: NEEDED Status: Active Protocol: Document 05/01/24 11:05 TS (Rec: 05/01/24 11:12 TS [id number]) PT-Bed Mobility Assessment Supine to Sit Supine to Sit Maximum Assistance,1 Person Assistance,Head of Bed Elevated,Bedrails Scooting Scooting to Edge of Bed Moderate Assistance PT-Transfer Assessment Sit to and From Stand Sit to and from Stand Moderate Assistance,2 Person Assistance Equipment Transfer Assistive Device Gait Belt,Stuart Walker Orthotic/Prosthetic Devices or Brace: Yes Transfers Transfer Destination Chair,Bedside Commode Transfer Technique Stand Step Pivot Transfer Ability Level of Assist Moderate Assistance,2 Person Assistance Comments Mobility Comments Pt cued for NWB through RUE with mobility. Supine to sit MaxA x1 with SPECIAL EVENTS DIRECTOR. She scoots to EOB with LUE and requires cues to NWB through RUE ModA. STS with hemiwalker ModA x2, pt has flexed posture and a slight posterior lean. Stand vianca pivot to commode ModA x2 with hemiwalker. OT assists pt with pericare. Stand step pivot to chair ModA x2 with cues for sequencing. Pt was left in the chair, all needs met. Gait Assessment Comments Gait Comments Stand step pivot x2 PT-Balance Assessment Sitting Balance and Reactions Static Sitting Balance Ability Fair Dynamic Sitting Balance Ability Fair Standing Balance and Reactions Static Standing Balance Ability Poor Dynamic Standing Balance Ability Poor Device Used hemiwalker M5 PT-IP Objective Assessments Start: 04/27/24 12:41 Freq: NEEDED Status: Active Protocol: Document 04/27/24 09:30 AB (Rec: 04/27/24 13:02 AB [id number]) Orientation Orientation/Cognition Level of Alertness Alert Orientation Name,Place,Situation Language Function Ability Hard of Hearing Safety Awareness Decreased Safety Awareness Memory Description Short Term Impaired Gross Range of Motion Lower Extremity ROM Assessment Within Functional Limits Strength Lower Extremity Strength Assessment Left Impaired Hip 3+/5 Knee 3+/5 Sensation Assessment Sensation Gross Sensation WNL Muscle Tone Muscle Tone WNL Yes M6 PT-IP Treatment Start: 04/27/24 12:41 Freq: NEEDED Status: Active Protocol: Document 05/01/24 11:05 TS (Rec: 05/01/24 11:12 [id number]) Physical Therapy Treatment Exercises Exercises Elbow Flexion/Extension,Wrist ROM,Hand ROM Education Education Provided Precautions,Weight Bearing Status,Safety M7 PT-IP Assessment and Plan Start: 04/27/24 12:41 Freq: NEEDED Status: Active Protocol: Document 05/01/24 11:05 TS (Rec: 05/01/24 11:12 [id number]) PT Summary Assessment and Plan Potential Rehabilitation Potential Fair Summary Impairments Pain,ROM,Strength,Balance, Coordination,Sensation,Tone, Cognition,Bed Mobility, Transfers,Gait,Activity Tolerance Progress Towards Goals Slow Progress - Other Assessment Summary Michael is making some progress with her mobility but continues to be limited. She requires MaxA -ModA for bed mobility and cues to not use RUE. She continues to perform transfers and ModA x2 with hemiwalker. She has poor balance in standing with flexed posture. PT continues to recommend SNF. Goals Bed Mobility Goal Minimal Assistance Transfer Goal Minimal Assistance Gait Goal Minimal Assistance,Stuart Walker Gait Distance 25 Other Goals improve bed mobility, transfers and ambulation using hemiwalker/LRAD 50 ft SBA Days to Meet Goals 5 Frequency of Treatment Frequency Of Treatment Once a Day Treatment Plan Physical Therapy Treatment Plan Bed Mobility Training,Transfer Training,Gait Training, Therapeutic Exercise,Balance Retraining,Post Op Education, Discharge Planning,Hot or Cold Pack,Neuromuscular Re-ed, Coordination Retraining,Manual Therapy Precautions Shoulder Precautions Sling,No External Rotation Other Precautions Order for sling 6 weeks and no ER past neutral 6 weeks Weight Bearing Status Weight Bearing Status Non-Weight Bearing Recommendations To Nursing Amount of Assist Needed 2 Person Assist Discharge Recommendations PT Discharge Recommendations SNF Rehab Transportation Needs at Discharge Wheelchair/Cabulance
[2024-05-01 10:36] LABS: Osmolality Urine 349 mOsmol/kg (.)
[2024-05-01 10:36] LABS: Osmolality, Serum 272 mOsmol/kg (280-301)
--- NOTE | 2024-05-01 11:03 | OT.IP.TRT ---
Current Diagnoses Primary osteoarthritis, right shoulder (04/26/24) Presence of unspecified artificial shoulder joint (04/26/24) Surgery Performed Operation Date: 04/26/24 12:00 Actual Procedures p Reverse Total Shoulder Arthroplasty with Bicep tenodesis(Right) - Lang Mcclure MD Occupational Therapy Treatment Note M2 OT-IP Current Condition Start: 04/27/24 13:30 Freq: Status: Active Protocol: Document 04/27/24 13:30 [facility] (Rec: 04/27/24 13:41 [facility] [id number]) Occupational Therapy Current Condition Current Condition Evaluation Date 04/27/24 Treatment Diagnosis S/P R TSA Diagnosis Onset Date 04/26/24 Weight Bearing Status Weight Bearing Status Non-Weight Bearing Allowed Weight Bearing Amount (enter % RUE NWB or #) (%) M3 OT- IP Subjective and Pain Start: 04/27/24 13:30 Freq: Status: Active Protocol: Document 05/01/24 11:04 [facility] (Rec: 05/01/24 11:15 [facility] [id number]) OT- Subjective Occupational Therapy Visit Type Type Treatment Note Visit Start Time 10:23 Visit Stop Time 11:03 Notes Pt's right hand very swollen in addition to her RUE. Occupational Therapy Visit Comments Patient Comments Pt agreed to get up to use the BSC. Patient/Caregiver Goals TO go to skilled rehab and get better. OT Pain Assessment Pain When Pain Assessed During Mobility Pain Present Pain Present Pain Reported M4 OT- IP ADL's Start: 04/27/24 13:30 Freq: Status: Active Protocol: Document 05/01/24 11:04 [facility] (Rec: 05/01/24 11:15 [facility] [id number]) OT ADL-Dressing General Eval Upper Body Dressing Ability Total Assistance Areas Needing Assistance Shoes,Orthosis/Prosthesis Comments OT Dressing Comments for sling and shoes OT ADL-Toileting General Evaluation Toileting Ability Total Assistance Areas Needing Assistance Manage Clothing,Perform Perineal Hygiene Comments OT Toileting Comments Assist for hygiene and brief management needs. OT ADL-Bathing Comments OT Bathing Comments not performed, sponge bath more appropriate at this time. M5 OT- IP IADL's Start: 04/27/24 13:30 Freq: Status: Active Protocol: Document 04/27/24 13:30 [facility] (Rec: 04/27/24 13:41 [facility] [id number]) OT-Instrumental Activities of Daily Living Home Safety Awareness Awareness of Need for Assistance at Home Good Awareness Meal Preparation Meal Preparation Caregiver Provides Assist Supervisor Testing Supervisor Testing Caregiver Provides Assist M6 OT- IP Functional Cognition Start: 04/27/24 13:30 Freq: Status: Active Protocol: Document 05/01/24 11:04 [facility] (Rec: 05/01/24 11:15 [facility] [id number]) Cognitive Factors Limiting Selfcare Function Cognitive Comments Cognitive Assessment Comments Pt needing initial encouragement and very cooperative especially when therapist were able to tell her step by step what was happening. M7 OT- IP Mobility and Balance Start: 04/27/24 13:30 Freq: Status: Active Protocol: Document 05/01/24 11:04 [facility] (Rec: 05/01/24 11:15 [facility] [id number]) OT- Bed Mobility Assessment Supine to Sit Supine to Sit Assist Maximum Assistance,1 Person Assistance,Head of Bed Elevated,Bedrails Scooting Scooting to Edge of Bed Maximum Assistance,1 Person Assistance,Head of Bed Elevated,Bedrails OT-Transfer Assessment Sit to and From Stand Sit to and from Stand Moderate Assistance,2 Person Assistance Transfers Transfer Ability Moderate Assistance,2 Person Assistance Technique Transfer Destination Bed,Bedside Commode,Chair Transfer Technique Stand Step Pivot Devices Transfer Assistive Devices Gait Belt,Stuart Walker Comments Mobility Comments MAX X 1 with HOB up to get out of the bed and heavy use of the green sheet to get her to the edge of the bed. MODA X 2 to stand to the hemiwalker and assist for balance and to guide the hemiwalker for the transfer. Pt tends to want to use her RUE and cues not to use her RUE for mobility needs . OT- Balance Assessment Sitting Balance and Reactions Static Sitting Balance Ability Good Dynamic Sitting Balance Ability Good Standing Balance and Reactions Static Standing Balance Ability Poor Dynamic Standing Balance Ability Poor Comments Other Balance Tests/Deviations/Treatment Pt needing increased time to : get adjusted and get her balance when coming to stand initially. Pt has a very flexed posture when up on her feet. M8 OT- IP Objective Assessments Start: 04/27/24 13:30 Freq: Status: Active Protocol: Document 04/27/24 13:30 [facility] (Rec: 04/27/24 13:41 [facility] [id number]) OT Gross Range of Motion Upper Extremity Range of Motion Assessment Bilaterally Impaired OT Strength Upper Extremity Strength Assessment Bilaterally Impaired M9 OT- IP Assessment and Plan Start: 04/27/24 13:30 Freq: Status: Active Protocol: Document 05/01/24 11:04 [facility] (Rec: 05/01/24 11:15 [facility] [id number]) OT Summary Assessment and Plan Potential Rehabilitation Potential Fair Analytic Complexity at Evaluation Moderate Summary OT Impairments Pain,Range of Motion,Strength, Balance,Functional Mobility, Self-Feeding,Grooming,Dressing ,Toileting,Bathing,Toilet Transfers,Shower Transfers, Activity Tolerance Progress Towards Goals Slow Progress due to Pain,Slow Progress due to Medical Issues,Slow Progress due to Activity Tolerance Assessment Summary Pt able to tolerate transfer to [facility] and then recliner. Pt's hand very swollen and able to do gentle prom to right hand. Pt cooperative and looking to go to skilled rehab when medically stable. Goals Self-Feeding Goal Standby Assistance Grooming Goal Standby Assistance Dressing Goal Moderate Assistance Toileting Goal Moderate Assistance Bathing Goal Moderate Assistance Toilet Transfer Goal Minimal Assistance Shower Transfer Goal Moderate Assistance Days to Meet Goals 24 Frequency of Treatment Other frequency 5x/week Treatment Plan OT Treatment Plan ADL Training,Functional Mobility,Patient/Family Education,Discharge Planning Discharge Recommendations OT Discharge Recommendations SNF Rehab Transportation Needs at Discharge Wheelchair/Cabulance
[2024-05-01] MEDS: FLUTICASONE 120 SPRAY/16 GM SPRAY.SUSP NASAL (11:09)
--- NOTE | 2024-05-01 14:01 | CM.DPC ---
DCP Cont. Reviewed EMR and team rounds for status updates. Met with pt at bedside to discuss d/c plan to [place] tomorrow, which she had identified as her preference. They can transport at 11:00am tomorrow. Pt expressed resistance to d/c, stating, I will leave when I feel ready, and I may not feel ready tomorrow. This comes after several days of trying to secure a SNF rehab placement for her, and she will only go to a specific one, which is currently having a covid outbreak. PALLIATIVE NURSE explained the role of d/c following a planned surgery, now day 5 post-op for a reverse shoulder arthroplasty. She did agree to pay privately for [facility] transport, however initially was argumentative and insisted that she was told by her friend with medical experience that either [facility] or [facility] would be paying for her transport to [facility] locations. Left message for Ortho to please call this PALLIATIVE NURSE in order to update him re: d/c plan for tomorrow. Per her request, called her DPOA/friend, [employer], and updated her on the plan, which she was agreeable with and expressed understanding.
--- NOTE | 2024-05-01 14:35 | P.PN_ITS ---
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 Underwent R reverse total shoulder arthroplasty 04/26/24.? Post op did fairly well but developed symptomatic hypotension on 04/27/24.? Echo revealed EF 60-65%, mild to mod perivalvular regurgitation around the prosthetic aortic valve.??? Hgb down from 12.7 pre-op.? Trop was elevated at 0.27. Sodium stable today. slight lightheadedness with sitting up this morning, no chest pain, shortness of breath. Exam Vital Signs (past 8 hours): - 05/01/24 08:00 05/01/24 08:14 05/01/24 08:15 Temperature 98.0 F Pulse Rate Respiratory Rate 18 Blood Pressure 136/62 Pulse Oximetry 99 05/01/24 08:15 Temperature Pulse Rate 55 L Respiratory Rate Blood Pressure Pulse Oximetry 99 Fraction of Inspired Oxygen 50 Oxygen Delivery Method Room Air Oxygen Flow Rate 0 Const Other: GEN: Somnolent elderly female, when aroused she is oriented x 3, pale HEENT:NC, Face symmetric CHEST: Respiratory excursions symmetric, CTAB, right shoulder in a sling CV: RRR, 2 to 3/6 systolic murmur heard best at the left upper sternal border ABD: Soft, NT/ND, BT present in all 4 quadrants, no organomegaly or masses EXTR: warm, well perfused, no C/C/E SKIN: warm and dry, no rash NEURO: oriented x 3, nonfocal Objective Labs 05/01/24 06:26 05/01/24 06:26 Labs: Laboratory Results - last 24 hr 04/28/24 04/29/24 04/30/24 09:10 09:32 18:00 WBC RBC Hgb Hct MCV MCH MCHC RDW Plt Count Neut % (Auto) Lymph % (Auto) Elliott % (Auto) Eos % (Auto) Baso % (Auto) Neut # (Auto) Lymph # (Auto) Elliott # (Auto) Eos # (Auto) Baso # (Auto) Sodium 125 L Potassium 4.0 Chloride 96 L Carbon Dioxide 25 BUN 24 H Creatinine 0.73 Estimated GFR > 60 BUN/Creatinine Ratio 32.9 H Glucose 160 H Serum Osmolality 272 L Calcium 7.9 L Urine Osmolality 349 05/01/24 06:26 WBC 9.1 RBC 2.19 L Hgb 7.6 L Hct 22.4 L MCV 102.2 H MCH 34.6 H MCHC 33.8 RDW 12.9 Plt Count 220 Neut % (Auto) 72.6 Lymph % (Auto) 12.7 L Elliott % (Auto) 11.5 Eos % (Auto) 2.9 Baso % (Auto) 0.3 Neut # (Auto) 6600 Lymph # (Auto) 1200 Elliott # (Auto) 1000 H Eos # (Auto) 300 Baso # (Auto) 0 Sodium 128 L Potassium 4.3 Chloride 97 L Carbon Dioxide 28 BUN 17 Creatinine 0.59 Estimated GFR > 60 BUN/Creatinine Ratio 28.8 H Glucose 104 Serum Osmolality Calcium 8.0 L Urine Osmolality [facility] Medical History CVA (cerebral vascular accident) (02/2023) Anemia Gastrointestinal hemorrhage associated with gastric ulcer H/O coronary angiogram (08/25/22) CAD (coronary artery disease) Paroxysmal A-fib (2023) Fall Restless leg syndrome Shoulder pain Chronic back pain Cervical spine disease (~2009) Vertigo Cataracts, bilateral (~2012) Painful menstrual periods Herpes (~1969) SHAGGY (stress urinary incontinence, female) (~10/17/18) Vaginal prolapse (~10/17/18) Insomnia disorder Hypertension (01/22/11) Obstructive sleep apnea of adult Asthma Diplopia Other depressive disorder (01/22/11) Generalized anxiety disorder Mixed hyperlipidemia (01/22/11) Surgical History S/p TAVR (transcatheter aortic valve replacement), 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 Coronary artery disease Patient did have a mild troponin elevation. However, echocardiogram revealed no evidence of wall motion abnormalities. Suspect troponin elevation was secondary to transient hypotension and hypoxia. Repeat done for chest pain on 04/29 showed continued improvement. 2. Paroxysmal atrial fibrillation She is back on her usual dose of Eliquis. She remains regular on exam today and rate controlled. Continue amiodarone, metoprolol 3. History of TAVR, with periprosthetic regurgitation Previous echo in September of this year revealed mild valvular insufficiency. There is now mild to moderate valvular insufficiency. 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 4. Postoperative day 3 from right reverse total shoulder arthroplasty with autografting of the glenoid She remains in a sling and will do so for the next 6 weeks per Orthopedic surgery. Ongoing management per Orthopedic surgery. Ice packs are working well. 5. Acute on chronic Hyponatremia with acute metabolic encephalopathy Could be secondary to slightly worse hyponatremia compared to baseline versus medications. Will hold hydrocodone, gabapentin, and discontinue the Benadryl from her Sep. Last dose of hydrocodone was yesterday afternoon around 4:00 p.m.. Unfortunately she did receive her morning dose of gabapentin. Will monitor. -Na dropped to 120, was given 2x boluses of 3% NS from 04/29-04/30 with improvement to 127. Now stable. -unclear / difficult to tell volume status. Urine Na is >20 but also is on diuretic. Na worse with fluids. Suspect SIADH, but has not been drinking much. Try to limit IV flduids 5. Remote history of GI bleed Remains on pantoprazole. 6. Chronic left bundle branch block Unchanged 7. Acute on Chronic iron deficiency anemia Hemoglobin slow downtrend at 7.6 today, continue to follow. Significant bruising in R arm, possible hematoma, has peripheral pulses and sensation is intact. - management per orthopedics. 8. Remote thalamic stroke Continue usual outpatient medications. 10. Code status Full Prophylaxis Eliquis Disposition Can transfer to SNF with regards to hyponatremia. Management of anemia per orthopedics. Time-Based Coding :: [TOTAL MINUTES] spent with patient and on the chart (including review of chart, obtaining history, exam, reviewing outside data, placing orders, documenting exam and treatment plan, and counseling patient) on [DATE]. Quality VTE Deep Vein Thrombosis/Pulmonary Embolism Present on Admission: No
[2024-05-01] MEDS: LOSARTAN 25 MG TABLET 50 MG PO (16:06)
[2024-05-01] MEDS: MELATONIN 3 MG TABLET 6 MG PO (20:17)
[2024-05-01] MEDS: ROPINIROLE 0.25 MG TABLET PO (20:18)
[2024-05-01] MEDS: GABAPENTIN 300 MG CAPSULE PO (20:19)
[2024-05-02 04:00] VITALS: BP 152/48; PULSE 60; RESP 16; TEMP 36.4; O2SAT 100
[2024-05-02] MEDS: ACETAMINOPHEN 325 MG TABLET 650 MG PO ×2 (04:10→09:32)
[2024-05-02 05:07] LABS: Add Manual Diff / Slide Review NO; Basophils Absolute Auto 0 /uL (0-100); Basophils Percent Auto 0.6 % (0-2); Eosinophils Absolute Auto 200 /uL (0-450); Eosinophils Percent Auto 2.8 % (2-4); Hematocrit 21.1 % (36-46); Hemoglobin 7.4 g/dL (12.0-16.0); Lymphocytes Absolute Auto 1400 /uL (1100-4500); Lymphocytes Percent Auto 16.2 % (25-40); Mean Corpuscular HGB Conc 34.9 % (30-36); Mean Corpuscular Hemoglobin 35.6 PG (26-34); Mean Corpuscular Volume 102.2 fL (80-100); Monocytes Absolute Auto 1000 /uL (0-900); Monocytes Percent Auto 11.4 % (3-14); Neutrophils Absolute Auto 6000 /uL (1500-7000); Platelet Count 228 X10^3/uL (150-400); Red Blood Cell Count 2.06 X10^6/uL (4.0-5.2); Red Cell Distribution Width 13.2 % (11.6-14.8); White Blood Cell Count 8.7 X10^3/uL (4.5-11.0)
[2024-05-02 05:23] LABS: BUN Creatinine Ratio 21.6 (6-22); Blood Urea Nitrogen 16 mg/dL (7-17); Calcium 7.9 mg/dL (8.4-10.2); Carbon Dioxide 26 mmol/L (22-32); Chloride 96 mmol/L (98-107); Estimated Glomerular Filt Rate > 60 mL/min (>60); Glucose 97 mg/dL (80-110); HEMOLYSIS < 15 (0-50); Potassium 4.1 mmol/L (3.4-5.1); Sodium 126 mmol/L (137-145)
[2024-05-02] MEDS: PANTOPRAZOLE DR 20 MG TABLET PO (06:48)
[2024-05-02 08:00] VITALS: BP 162/50; PULSE 51; RESP 16; TEMP 36.2; O2SAT 100
--- NOTE | 2024-05-02 08:43 | PM.DS.1 ---
History of Present Illness History of Present Illness Chief complaint: Right Total Shoulder Arthroplasty - Reverse Narrative: Maria Eugenia is a pleasant 88 year old female who is POD#6 s/p right reverse TSA by Dr. Mcclure. pmhx of paroxysmal a-fib on chronic Eliquis (held x 2 days prior to surgery), h/o aortic stenosis s/p TAVR, CAD s/p PCI, moderate MR, thalamic CVA 03/09, hx of GIB.? Underwent R reverse total shoulder arthroplasty 04/26/24.? Post op did fairly well but developed symptomatic hypotension on 04/27/24.? Echo revealed EF 60-65%, mild to mod perivalvular regurgitation around the prosthetic aortic valve.?Hgb down from 12.7 pre-op, most recent H&H was 7.4 and 21.1.?Trop was elevated at 0.27. This morning she states her pain is well controlled, and she is feeling comfortable in her sling. She plans to d/c to SNF in [place] today before returning back to [facility] once she has gotten through some initial rehab. She does not have any new questions or concerns for me this morning. No new symptoms, she feels stable. 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 Symptoms have been present for years, insidious onset. Patient has failed a reasonable attempt at conservative therapy. After extensive discussion in clinic, they wished to go forward with surgery. Risks and benefits were described including the risk of infection, bleeding, damage to internal structures including nerves. We also discussed the risk of failure of surgery and the need for revision surgery as well as the risk of anesthesia. The patient expressed understanding with these risks and wished to go forward with surgery. Surgeon: Lang Mcclure Dinkey Operator Slate: Daren Olguin Anesthesia Type: General Discharge Providers Provider Date of admission: 04/26/24 09:10 Discharge Date: 05/02/24 Primary care physician: Marly Castillo, Consults: 04/16/24 11:40 Consult to Anesthesiology Routine Comment: Consulting Provider: Anesthesiologist Reason for consultation: PAC courtesy. 04/26/24 14:17 Consult to Discharge Planning Routine Comment: Consult to Occupational Therapy Evaluate & Treat Comment: Physician Instructions: Evaluate and treat Consult to Physical Therapy Evaluate & Treat Comment: Non weight-bearing through right upper extremity Physician Instructions: Evaluate and Treat 04/26/24 16:03 Consult to Hospitalist Service Routine Comment: Consulting Provider: [facility] Reason for consultation: CAD, HTN, CHF, Chronic kidney disease and postoperative hemodynamic instabi Has provider been notified: No Discharge provider: Madison Montgomery PA-C Summary Hospital Course Discharge Diagnosis: s/p R RTSA Hospital Course: Hospital course complicated by post-operative symptomatic hypotension on POD#1. She then was found to have acute on chronic Hyponatremia with acute metabolic encephalopathy which has improved. She has also had post-op anemia, most recent H&H is 7.4, 21.1, continuing to downtrend, non-symptomatic at this time. Exam Vital Signs (past 8 hours): - 05/02/24 04:00 Temperature 97.6 F Pulse Rate 60 Respiratory Rate 16 Blood Pressure 152/48 H Pulse Oximetry 100 Oxygen Flow Rate 0 Fraction of Inspired Oxygen 50 Oxygen Delivery Method Room Air Oxygen Flow Rate 0 Narrative Exam Narrative: Patient sitting comfortably in bed during our interview today. No acute distress. AOx3. Grossly normal alignment of the RUE with mild swelling throughout. 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 Gross sensation intact throughout bilateral upper extremities. Calves soft and non-tender bilaterally. SCDs are on and functioning. Brisk capillary refill, pulses intact. Post-surgical Aquacel dressing clean, dry and intact over theright shoulder without drainage. Objective Labs 05/02/24 04:25 05/02/24 04:25 Labs: Laboratory Results - last 24 hr 04/28/24 04/29/24 05/02/24 09:10 09:32 04:25 WBC 8.7 RBC 2.06 L Hgb 7.4 L Hct 21.1 L MCV 102.2 H MCH 35.6 H MCHC 34.9 RDW 13.2 Plt Count 228 Neut % (Auto) 69.0 Lymph % (Auto) 16.2 L Day % (Auto) 11.4 Eos % (Auto) 2.8 Baso % (Auto) 0.6 Neut # (Auto) 6000 Lymph # (Auto) 1400 Day # (Auto) 1000 H Eos # (Auto) 200 Baso # (Auto) 0 Sodium 126 L Potassium 4.1 Chloride 96 L Carbon Dioxide 26 BUN 16 Creatinine 0.74 Estimated GFR > 60 BUN/Creatinine Ratio 21.6 Glucose 97 Serum Osmolality 272 L Calcium 7.9 L Urine Osmolality 349 PFSH Medical History CVA (cerebral vascular accident) (02/2023) Anemia Gastrointestinal hemorrhage associated with gastric ulcer H/O coronary angiogram (08/25/22) CAD (coronary artery disease) Paroxysmal A-fib (2023) Fall Restless leg syndrome Shoulder pain Chronic back pain Cervical spine disease (~2009) Vertigo Cataracts, bilateral (~2012) Painful menstrual periods Herpes (~1969) SHAGGY (stress urinary incontinence, female) (~10/17/18) Vaginal prolapse (~10/17/18) Insomnia disorder Hypertension (01/22/11) Obstructive sleep apnea of adult Asthma Diplopia Other depressive disorder (01/22/11) Generalized anxiety disorder Mixed hyperlipidemia (01/22/11) Surgical History S/p TAVR (transcatheter aortic valve replacement), 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) H/O heart artery stent (2022) H/O hernia repair Anesthesia History of cholecystectomy History of hysterectomy Family History Father History of heart disease Brother Mental health problem Sister Breast cancer Social History household members: none Smoking Status: Never smoker alcohol intake: former Discharge Assessment & Plan Assessment and Plan Assessment: stable s/p R reverse TSA w/ post-op anemia. Plan of Treatment: 1) Plan to discharge to SNF today pending no new or worsening symptoms prior to transfer. 2) Continue multimodal pain management with ice to the shoulder for additional pain control. 3) Continue Eliquis 2.5mg BID for DVT prophylaxis. 4) Keep dressing intact, clean, dry until 2 week postop appointment. No soaking the incision site in pools or tubs. No topical ointments or creams to the incision site. Counseled patient on red flag sx and return precuations. 5) Follow up at [facility] in 2 weeks for a postop appointment and wound check. 6) Will continue to monitor H&H, plan to order outpatient CBC 2 week post-op appt or sooner if symptomatic. Recommend patient f/u w/ outpatient PCP on hyponatremia. All patient's questions were answered, she demonstrates understanding and is in agreement with the plan. Call our office if any questions or concerns arise. Discharge Plan Discharge Plan Patient Disposition: SNF Other facility: [facility] Discharge orders & Medications Prescriptions: New hydrocodone-acetaminophen 5-325 mg Tablet 1 tab PO Q6HR Qty: 30 0RF docusate sodium 100 mg Capsule 100 mg PO BID PRN (Reason: constipation) Qty: 30 0RF ondansetron 4 mg Tablet,Disintegrating 4 mg PO Q8HR Qty: 10 0RF Continued cyclosporine [Restasis] 1 EACH dropperette 0.05 % OPHTH BID Qty: 0 cholecalciferol (vitamin D3) [Vitamin D3] 1,000 UNIT tablet,chewable 2,000 iu PO QAM Qty: 0 acetaminophen 500 mg tablet 500 mg PO TID Qty: 0 (DME) Generic CPAP See Rx Instructions .Route .MEDSUPPLY Qty: 1 0RF Rx Instructions: As directed valacyclovir 500 mg tablet 500 mg PO DAILY losartan 25 mg tablet 50 mg PO QPM amiodarone 100 mg tablet 100 mg PO DAILY fluticasone propionate 50 mcg/actuation spray,suspension 2 spray Intranasal QDAY PRN (Reason: allergies) celecoxib [Celebrex] 100 mg capsule 100 mg PO BID Eliquis 2.5 mg tablet 2.5 mg PO BID gabapentin 300 mg capsule 300 mg PO BID Jardiance 10 mg tablet 10 mg PO DAILY [facility] 7,160 unit- 113 mg-1 mg tablet 2 tab PO BID Rx Instructions: administer with a meal melatonin 5 mg capsule 5 mg PO BEDTIME omeprazole 20 mg capsule,delayed release(DR/EC) 20 mg PO DAILY ropinirole 0.25 mg tablet 0.25 mg PO BEDTIME Rx Instructions: administer 1-3 hours before bedtime sodium chloride 1 g PO BID estradiol 1 MG tablet 1 mg PO DAILY isosorbide mononitrate 30 mg Tablet Extended Release 24 Hr 30 mg PO DAILY furosemide 20 mg tablet 40 mg PO DAILY magnesium oxide 400 mg (241.3 mg magnesium) tablet 400 mg PO DAILY metoprolol tartrate 25 mg tablet 12.5 mg PO BID Jardiance 10 mg PO QAM Follow up/Referrals: Lang Mcclure MD [Physician] - 05/10/24 1:30 pm (Follow up w/ Meghna Navas PA-C, at [facility] office in [place].) Marly Castilol DO [Primary Care Provider] - Diet/Activity/Treatments Diet: Regular Activity: Sling at all times x 6 weeks; may have off for hygiene and pendulums. No external rotation of the shoulder past neutral x 6 weeks. Cold/Heat Therapy: Ice to shoulder as needed for pain. Skin/Wound/Dressing Care Report to your healthcare provider any signs of infection, such as:: chills, fever, night sweats, unusual drainage and unusual redness Dressing: May shower. Leave dressing in place until follow up in office. No bathing or otherwise soaking incision. Call the office if the dressing becomes saturated inside. [facility] Reason for rehabilitation: Post-operative therapy Rehab type: Physical therapy and Occupational therapy Visit Report/Discharge Packet Instructions: DI for Prescription Opioid Use, DI for Shoulder Replacement Stand Alone Forms: Patient Portal/API Discharge Data Primary Care Provider: Marly Castillo Quality VTE Deep Vein Thrombosis/Pulmonary Embolism Present on Admission: No
[2024-05-02] MEDS: FLUTICASONE 120 SPRAY/16 GM SPRAY.SUSP NASAL (09:20)
[2024-05-02] MEDS: CELECOXIB 100 MG CAPSULE PO (09:20)
[2024-05-02] MEDS: SODIUM CHLORIDE 1,000 MG TABLET 2000 MG PO (09:20)
[2024-05-02] MEDS: FUROSEMIDE 20 MG TABLET 40 MG PO (09:20)
[2024-05-02] MEDS: VIT C/E/ZN/COPPR/LUTEIN/ZEAXAN CAPSULE 2 CAP PO (09:20)
[2024-05-02] MEDS: CHOLECALCIFEROL (VITAMIN D3) 1,000 UNIT TABLET 2000 UNIT PO (09:20)
[2024-05-02] MEDS: valACYclovir 500 MG TABLET PO (09:21)
[2024-05-02] MEDS: AMIODARONE 200 MG TABLET 100 MG PO (09:21)
[2024-05-02] MEDS: estradioL 1 MG TABLET PO (09:21)
[2024-05-02] MEDS: ASPIRIN EC 81 MG TABLET PO (09:21)
[2024-05-02] MEDS: APIXABAN 5 MG TABLET 2.5 MG PO (09:21)
[2024-05-02] MEDS: GABAPENTIN 300 MG CAPSULE PO (09:21)
[2024-05-02] MEDS: MAGNESIUM OXIDE 400 MG TABLET PO (09:22)
[2024-05-02] MEDS: ISOSORBIDE MONONITRATE ER 30 MG TABLET PO (09:22)
[2024-05-02] MEDS: METOPROLOL IR 25 MG TABLET 12.5 MG PO (09:22)
--- NOTE | 2024-05-02 10:34 | CM.DPC ---
DCP Cont. Reviewed EMR and team rounds for status updates. Pt has been medically cleared for SNF rehab d/c today, [facility] will transport her at 11:00am. D/c clinicals have been faxed to the facility, [facility]. No further needs are identified at this time.
--- NOTE | 2024-05-02 11:05 | PC.NURSE ---
Pt is packed up and ready for discharge to [facility]. IV has been removed. Called report to [facility]ars[facility] and answered all questions. No further questions-Gopal Herring is here now with a w/c to transfer Pt. Pt out via w/c by [facility] personnel with all belongings.
== END 2024-05-02 11:21 | DRG 483 ==
LOC: AC 13:21 → ICU 19:49 → AC 20:32 → ICU 04-29 22:49 → AC 05-01 13:10
PROVIDERS: Family Medicine; Hospitalist; Internal Medicine; Nurse Anesthetist, Certified Registered; Physician Assistant Medical; Student in an Organized Health Care Education/Training Program; Admitting Provider Orthopaedic Surgery; PCP Family Medicine; Referring Provider Orthopaedic Surgery; Visit Provider Orthopaedic Surgery
PROC: 0RRJ00Z Replacement of Right Shoulder Joint with Reverse Ball and Socket Synthetic Substitute, Open Approach (ICD-10-PCS; CPT 23472; principal; 2024-04-26 12:00)
DX: M19.011 Primary osteoarthritis, right shoulder (principal); G93.41 Metabolic encephalopathy; E87.1 Hypo-osmolality and hyponatremia; M25.811 Other specified joint disorders, right shoulder; I95.81 Postprocedural hypotension; I25.10 Atherosclerotic heart disease of native coronary artery without angina pectoris; I48.0 Paroxysmal atrial fibrillation; I44.7 Left bundle-branch block, unspecified; D50.9 Iron deficiency anemia, unspecified; I34.0 Nonrheumatic mitral (valve) insufficiency; D64.89 Other specified anemias; G47.33 Obstructive sleep apnea (adult) (pediatric); I10 Essential (primary) hypertension; G25.81 Restless legs syndrome; Z95.2 Presence of prosthetic heart valve; Z79.621 Long term (current) use of calcineurin inhibitor; Z79.01 Long term (current) use of anticoagulants; Z86.73 Personal history of transient ischemic attack (TIA), and cerebral infarction without residual deficits; Z87.19 Personal history of other diseases of the digestive system; Z95.5 Presence of coronary angioplasty implant and graft
CPT/HCPCS: 36415; 36592; 36600; 64415; 71045; 73020; 80048; 82570; 82607; 82746; 82962; 83735; 83880; 83930; 83935; 84300; 84484; 84540; 85014; 85018; 85025; 85027; 87797; 93005; 93010; 93307; 94762; 97110; 97162; 97166; 97530; 97535; C1776; J0171; J0690; J1100; J2405; J2704; J3010; J3490; P9045

== ENCOUNTER → 2024-08-03 09:13 | Outpatient (CLI) | payer MEDICARE, SELFPAY ==
[2024-07-27 15:27] VITALS: BMI 23.2
[2024-08-03 10:13] LABS: Add Manual Diff / Slide Review NO; Basophils Absolute Auto 100 /uL (0-100); Basophils Percent Auto 0.6 % (0-2); Eosinophils Absolute Auto 400 /uL (0-450); Eosinophils Percent Auto 3.3 % (2-4); Hematocrit 24.7 % (36-46); Lymphocytes Absolute Auto 1600 /uL (1100-4500); Lymphocytes Percent Auto 13.8 % (25-40); Mean Corpuscular HGB Conc 32.3 % (30-36); Mean Corpuscular Hemoglobin 29.7 PG (26-34); Monocytes Absolute Auto 1100 /uL (0-900); Monocytes Percent Auto 9.3 % (3-14); Neutrophils Absolute Auto 8300 /uL (1500-7000); Platelet Count 422 X10^3/uL (150-400); Red Blood Cell Count 2.68 X10^6/uL (4.0-5.2); Red Cell Distribution Width 18.2 % (11.6-14.8); White Blood Cell Count 11.4 X10^3/uL (4.5-11.0)
[2024-08-03 10:32] LABS: Alanine Aminotransferase 14 IU/L (<35); Albumin Globulin Ratio 0.9 (1.0-2.8); Alkaline Phosphatase 89 U/L (38-126); Aspartate Aminotransferase 24 IU/L (14-36); BUN Creatinine Ratio 33.3 (6-22); Bilirubin Total 0.3 mg/dL (0.2-1.3); Blood Urea Nitrogen 29 mg/dL (7-17); Calcium 8.8 mg/dL (8.4-10.2); Carbon Dioxide 31 mmol/L (22-32); Chloride 102 mmol/L (98-107); Estimated Glomerular Filt Rate > 60 mL/min (>60); Globulin 3.3 g/dL (1.7-4.1); Glucose 113 mg/dL (80-110); HEMOLYSIS < 15 (0-50); Potassium 3.2 mmol/L (3.4-5.1); Sodium 139 mmol/L (137-145); Total Protein 6.3 g/dL (6.3-8.2)
== END ==
PROVIDERS: PCP Family Medicine; Referring Provider Family Medicine; Visit Provider Family Medicine
DX: Z87.01 Personal history of pneumonia (recurrent) (principal); R40.0 Somnolence; Z87.828 Personal history of other (healed) physical injury and trauma; N39.3 Stress incontinence (female) (male); D64.9 Anemia, unspecified
CPT/HCPCS: 36415; 80053; 84439; 84443; 85025